=== PATIENT | male | born 1950 | race Caucasian/White ===

== ENCOUNTER 2017-04-27 17:35 | Emergency (ER) | payer MEDICARE ==
[2017-04-27] MEDS ORDERED: NS 0.9% 1000 ML* 1,000 ML IV SCH (18:30)
[2017-04-27 19:31] LABS: Urine Bilirubin Negative (Negative); Urine Glucose Negative (Negative); Urine Nitrite Negative (Negative)
--- NOTE | 2017-04-27 19:51 | RAD ---
Indication: Elevated blood pressure. Respiratory disease. Comparison: December 15, 2016 Technique: Upright AP 1845 hours Report: Elevated lung volumes and both diffuse mild prominence of the interstitial markings and patchy rarefaction of the mid to upper lung zone interstitial markings. The heart, pulmonary vasculature, and mediastinal contours are unremarkable. No focal pulmonary lesion, compelling alveolar consolidation, pleural effusion, pneumothorax. IMPRESSION: Stigmata of obstructive lung disease. No acute pulmonary or cardiac process evident.
[2017-04-27 19:55] LABS: Hematocrit 44 % (42-52); Hemoglobin 15.2 g/dl (14.0-18.0); Mean Corpuscular HGB Conc 35 g/dl (31-36); Mean Corpuscular Hemoglobin 31 pg (27-31); Mean Corpuscular Volume 88 fL (80-94); Mean Platelet Volume 9 um3 (7.4-10.4); Red Blood Count 4.98 10^6/ul (4.0-5.4); Red Cell Distribution Width 14 % (10.5-15); White Blood Count 5.8 10^3/ul (3.5-10.8)
[2017-04-27 20:11] LABS: Albumin 4.2 g/dL (3.2-5.2); BUN/Creatinine Ratio 15.4 (8-20); C Reactive Protein 6.02 mg/L (< 5.00); Calcium 9.5 mg/dL (8.6-10.3); EGFR African American 127.3 (>60); Globulin 2.9 g/dL (2-4); Magnesium 2.1 mg/dL (1.9-2.7); Potassium 3.7 mmol/L (3.5-5.0); Total Bilirubin 0.7 mg/dL (0.2-1.0); Total Protein 7.1 g/dL (6.4-8.9)
[2017-04-27 20:43] LABS: TSH (Thyroid Stimulating Horm) 6.49 mcIU/mL (0.34-5.60)
--- NOTE | 2017-04-27 21:55 | ED ---
Jose Miguel Richardson Benjamin, scribed for Constantino Florez MD on 04/27/17 at 1830 . Hypertension - HPI Summary HPI Summary: 66yo male comes to ED via EMS for high blood pressure. Pt has been monitoring his BP, and his BP has been high lately. Today, pts BP was 151/69 at morning, 166/94 at noon, and 180/109 afternoon. Pt also reports feeling palpitations and neck stiffness. Pt denies CP. His BP meds are not helping with his BP. Pt also states that his face is red. Denies any previous cardiac Hx, but pt has thyroid problems and has been adjusting his thyroid meds dosing. - History of Current Complaint Chief Complaint: EDHypertension Stated Complaint: HIGH BP Time Seen by Provider: 04/27/17 17:59 Hx Obtained From: Patient, Family/Automotive Software Engineer Onset/Duration: Started Days Ago - 5-6 days, Still Present, Worse Since - today Timing: Intermittent Aggravating Factor(s): Nothing Alleviating Factor(s): Nothing Associated Signs & Symptoms: Negative - Allergies/Home Medications Allergies/Adverse Reactions: Allergies Allergy/AdvReac Type Severity Reaction Status Date / Time Penicillins Allergy Unknown Verified 04/27/17 18:03 Reaction Details PMH/Surg Hx/FS Hx/Imm Hx Endocrine/Hematology History: Reports: Hx Thyroid Disease Cardiovascular History: Reports: Hx Hypertension Infectious Disease History: No Infectious Disease History: Denies: Traveled Outside the [place] in Last 30 Days - Family History Known Family History: Positive: Cardiac Disease - Social History Occupation: Retired Lives: With Family Review of Systems Constitutional: Negative Negative: Fever, Chills Eyes: Negative ENT: Negative Positive: Palpitations. Negative: Chest Pain Respiratory: Negative Negative: Shortness Of Breath, Cough Gastrointestinal: Negative Negative: Abdominal Pain Genitourinary: Negative Positive: no symptoms reported Musculoskeletal: Negative Skin: Negative Neurological: Negative Psychological: Normal All Other Systems Reviewed And Are Negative: Yes Physical Exam Triage Information Reviewed: Yes Vital Signs On Initial Exam: Initial Vitals Temp Pulse Resp BP Pulse Ox 99.9 F 77 18 179/101 97 04/27/17 17:49 04/27/17 17:49 04/27/17 17:49 04/27/17 17:49 04/27/17 17:49 Vital Signs Reviewed: Yes Appearance: Positive: No Pain Distress, Well-Nourished. Negative: Well- Appearing - face is flushed Skin: Positive: Warm, Skin Color Reflects Adequate Perfusion, Dry, Other - flushed face Head/Face: Positive: Normal Head/Face Inspection Eyes: Positive: EOMI, KATHY ENT: Positive: Normal ENT inspection, Hearing grossly normal Neck: Positive: Supple, Nontender Respiratory/Lung Sounds: Positive: Clear to Auscultation, Breath Sounds Present Cardiovascular: Positive: RRR, Pulses are Symmetrical in both Upper and Lower Extremities Abdomen Description: Positive: Nontender, Soft Bowel Sounds: Positive: Present Musculoskeletal: Positive: Strength/ROM Intact Neurological: Positive: Sensory/Motor Intact, Alert, Oriented to Person Place, Time Psychiatric: Positive: Affect/Mood Appropriate Diagnostics - Vital Signs Vital Signs Temp Pulse Resp BP Pulse Ox 04/27/17 17:50 75 19 96 04/27/17 17:49 99.9 F 77 18 179/101 97 - Laboratory Lab Results: Lab Results 04/27/17 04/27/17 04/27/17 Range/Units 18:00 19:39 19:39 WBC (3.5-10.8) 10^3/ul RBC (4.0-5.4) 10^6/ul Hgb (14.0-18.0) g/dl Hct (42-52) % MCV (80-94) fL MCH (27-31) pg MCHC (31-36) g/dl RDW (10.5-15) % Plt Count (150-450) 10^3/ul MPV (7.4-10.4) um3 Neut % (Auto) (38-83) % Lymph % (Auto) (25-47) % [place] % (Auto) (1-9) % Eos % (Auto) (0-6) % Baso % (Auto) (0-2) % Absolute Neuts (auto) (1.5-7.7) 10^3/ul Absolute Lymphs (auto) (1.0-4.8) 10^3/ul Absolute Monos (auto) (0-0.8) 10^3/ul Absolute Eos (auto) (0-0.6) 10^3/ul Absolute Basos (auto) (0-0.2) 10^3/ul Absolute Nucleated RBC 10^3/ul Nucleated RBC % INR (Anticoag Therapy) 0.99 (0.89-1.11) APTT 29.3 (26.0-36.3) seconds Sodium (133-145) mmol/L Potassium (3.5-5.0) mmol/L Chloride (101-111) mmol/L Carbon Dioxide (22-32) mmol/L Anion Gap (2-11) mmol/L BUN (6-24) mg/dL Creatinine (0.67-1.17) mg/dL Est GFR ( Amer) (>60) Est GFR (Non-Af Amer) (>60) BUN/Creatinine Ratio (8-20) Glucose (70-100) mg/dL Lactic Acid (0.5-2.0) mmol/L Calcium (8.6-10.3) mg/dL Magnesium (1.9-2.7) mg/dL Total Bilirubin (0.2-1.0) mg/dL AST (13-39) U/L ALT (7-52) U/L Alkaline Phosphatase (34-104) U/L Troponin I (<0.04) ng/mL C-Reactive Protein (< 5.00) mg/L B-Natriuretic Peptide 21 ( - 100) pg/mL Total Protein (6.4-8.9) g/dL Albumin (3.2-5.2) g/dL Globulin (2-4) g/dL Albumin/Globulin Ratio (1-3) Lipase (11.0-82.0) U/L TSH (0.34-5.60) mcIU/mL Urine Color Straw Urine Appearance Clear Urine pH 7.0 (5-9) Ur Specific [place] 1.008 L (1.010-1.030) Urine Protein Negative (Negative) Urine Ketones Negative (Negative) Urine Blood Negative (Negative) Urine Nitrate Negative (Negative) Urine Bilirubin Negative (Negative) Urine Urobilinogen Negative (Negative) Ur Leukocyte Esterase Negative (Negative) Urine Glucose Negative (Negative) 04/27/17 04/27/17 04/27/17 Range/Units 19:39 19:39 19:39 WBC 5.8 (3.5-10.8) 10^3/ul RBC 4.98 (4.0-5.4) 10^6/ul Hgb 15.2 (14.0-18.0) g/dl Hct 44 (42-52) % MCV 88 (80-94) fL MCH 31 (27-31) pg MCHC 35 (31-36) g/dl RDW 14 (10.5-15) % Plt Count 155 (150-450) 10^3/ul MPV 9 (7.4-10.4) um3 Neut % (Auto) 77.3 (38-83) % Lymph % (Auto) 12.2 L (25-47) % [place] % (Auto) 6.9 (1-9) % Eos % (Auto) 2.4 (0-6) % Baso % (Auto) 1.2 (0-2) % Absolute Neuts (auto) 4.5 (1.5-7.7) 10^3/ul Absolute Lymphs (auto) 0.7 L (1.0-4.8) 10^3/ul Absolute Monos (auto) 0.4 (0-0.8) 10^3/ul Absolute Eos (auto) 0.1 (0-0.6) 10^3/ul Absolute Basos (auto) 0.1 (0-0.2) 10^3/ul Absolute Nucleated RBC 0 10^3/ul Nucleated RBC % 0 INR (Anticoag Therapy) (0.89-1.11) APTT (26.0-36.3) seconds Sodium 137 (133-145) mmol/L Potassium 3.7 (3.5-5.0) mmol/L Chloride 102 (101-111) mmol/L Carbon Dioxide 28 (22-32) mmol/L Anion Gap 7 (2-11) mmol/L BUN 12 (6-24) mg/dL Creatinine 0.78 (0.67-1.17) mg/dL Est GFR ( Amer) 127.3 (>60) Est GFR (Non-Af Amer) 99.0 (>60) BUN/Creatinine Ratio 15.4 (8-20) Glucose 104 H (70-100) mg/dL Lactic Acid 0.7 (0.5-2.0) mmol/L Calcium 9.5 (8.6-10.3) mg/dL Magnesium 2.1 (1.9-2.7) mg/dL Total Bilirubin 0.70 (0.2-1.0) mg/dL AST 19 (13-39) U/L ALT 11 (7-52) U/L Alkaline Phosphatase 47 (34-104) U/L Troponin I 0.00 (<0.04) ng/mL C-Reactive Protein 6.02 H (< 5.00) mg/L B-Natriuretic Peptide ( - 100) pg/mL Total Protein 7.1 (6.4-8.9) g/dL Albumin 4.2 (3.2-5.2) g/dL Globulin 2.9 (2-4) g/dL Albumin/Globulin Ratio 1.4 (1-3) Lipase 46 (11.0-82.0) U/L TSH 6.49 H (0.34-5.60) mcIU/mL Urine Color Urine Appearance Urine pH (5-9) Ur Specific [place] (1.010-1.030) Urine Protein (Negative) Urine Ketones (Negative) Urine Blood (Negative) Urine Nitrate (Negative) Urine Bilirubin (Negative) Urine Urobilinogen (Negative) Ur Leukocyte Esterase (Negative) Urine Glucose (Negative) Result Diagrams: 04/27/17 19:39 04/27/17 19:39 Lab Statement: Any lab studies that have been ordered have been reviewed, and results considered in the medical decision making process. - Radiology CXR Xray Interpretation: No Acute Changes - IMPRESSION: Stigmata of obstructive lung disease. No acute pulmonary or cardiac process evident. Radiology Interpretation Completed By: Radiologist - EKG 5550. Cardiac Rate: NL - 74bpm EKG Rhythm: Sinus Rhythm ST Segment: Normal Ectopy: None Re-Evaluation - Re-Evaluation First Eval Re-Evaluation Time: 20:51 Comment: Reviewed pts lab and imaging results with the pt. Hypertension Course/Dx - Course Course Of Treatment: Reviewed pts medication and allergy lists. High blood pressure noted. PATIENT'S BP VARIABLE IN ED. THE PLAN IS TO CONTINUE BP MEDS DIRECTED AND F/U WITH PMD AND ENDOCRINOLOGY TOMORROW; RETURN IF WORSE WITH SYMPTOMATIC HYPERTENSION OR ANY CONCERNS. - Diagnoses Provider Diagnoses: Hypertension, Thyroid condition Discharge - Discharge Plan Condition: Stable Disposition: HOME Patient Education Materials: Hypertension (ED) Referrals: Michael Bates MD [Primary Care Provider] - Kian Arredondo MD [Medical Doctor] - Additional Instructions: FOLLOW UP WITH YOUR DOCTOR. CALL BOTH DR BATES AND DR ARREDONDO TOMORROW FOR FOLLOW UP. RETURN TO THE EMERGENCY DEPARTMENT FOR ANY WORSENING OF YOUR CONDITION; CHEST PAIN, HEADACHE, ELEVATED BLOOD PRESSURE WITH ANY SYMPTOMS OR QUESTIONS OR CONCERNS. The documentation as recorded by the Jose Miguel paredes Benjamin accurately reflects the service I personally performed and the decisions made by me, Constantino Florez MD.
[2017-04-27 22:20] VITALS: BP 147/87
== END 2017-04-27 22:35 | disposition home or self-care (01) ==
LOC: ED 17:35
DX: I10 Essential (primary) hypertension (principal); E07.9 Disorder of thyroid, unspecified; R00.2 Palpitations
CPT/HCPCS: 36415; 71010; 80053; 81003; 83605; 83690; 83735; 83880; 84443; 84484; 85025; 85610; 85730; 86140; 93005; 99284

== ENCOUNTER 2017-08-06 09:00 | Emergency (ER) | payer MEDICARE ==
--- NOTE | 2017-08-06 09:56 | RAD ---
INDICATION: Hemoptysis COMPARISON: April 27, 2017 TECHNIQUE: PA and lateral dual-energy views were obtained. FINDINGS: Bones/Soft Tissues: There are no acute bony findings. Cardiomediastinal: The cardiomediastinal silhouette is normal. Lungs: There are no infiltrates. There is hyperinflation Pleura: There are no pleural effusions. Other: None IMPRESSION: HYPERINFLATION. NO ACTIVE DISEASE.
--- NOTE | 2017-08-06 09:58 | RAD ---
INDICATION: Tongue carcinoma COMPARISON: None TECHNIQUE: 2 views the neck with soft tissue technique were performed FINDINGS: There is no acute bony change. There is underlying osteopenia with desiccation of the anterior longitudinal ligament in addition to anterior bony spur formation. There is multilevel facet arthropathy. There are soft tissue calcifications adjacent to the spinous processes. There are postsurgical changes at the level larynx with multiple surgical clips. The airway appears widely patent. The prevertebral soft tissues and epiglottis appear normal. IMPRESSION: DEGENERATIVE AND POSTSURGICAL CHANGES. NO ACUTE FINDINGS.
--- NOTE | 2017-08-06 10:40 | UC ---
Constanza Richardson Thomas, scribed for [facility] Center[facility]dom[facility] MD on 08/06/17 at 0907 . Respiratory Complaint HPI - HPI Summary HPI Summary: In Room Note: The patient is a 66 year old male presenting to Urgent Care and intermittent spitting up blood since this morning at 05:00. The patient often has white- yellow phlegm in the morning, but he never has had bloody phlegm before today. He does have some increased difficulty swallowing compared to baseline. He has no other complaints at this time. 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 About ten years ago, he had 40 radiation treatments. The patient denies any difficulty breathing. MD Note: 66 year old male with complaint of coughing up blood. Visit history significant for prostate cancer, thyroidectomy, and hypertension (on anti-hypertensive medications), as well as Synthroid. VSS, temp 99.4, Pulse Ox 96, BP 181/86 ( being treated for hypertension), non-smoker. Nurses Note: 10 years ago the patient had a radical neck for squamous cell carcinoma at the base of his tongue. He also had radiation and chemo. [place]. The patient states that he normally has some phlegm in his throat in the mornings when he wakes up. The phlegm is usually white to yellow and is more thin. This morning there was blood in the mucous. He is here because he is nervous about the blood. He says it was just a little bit of blood and the blood has cleared up since he first noticed it. He also has a history of thyroid cancer 14 years ago. He currently has prostate cancer as well. His last check up with his doctor who monitors him for the head/neck cancer said that he has a lot of scar tissue in the neck and the scar tissue is getting worse. He does have some difficulty swallowing and the doctor is aware of that. - History of Current Complaint Stated Complaint: SOFT TISSUE Time Seen by Provider: 08/06/17 09:02 Hx Obtained From: Patient, Family/Geriatric Nurse - present Onset/Duration: Lasting Hours - onset today at 05:00, Still Present Timing: Intermittent Episodes Severity Currently: Severe Pain Intensity: 0 Pain Scale Used: 0-10 Numeric Character: Cough: Productive, Sputum Description: - bloody Aggravating Factors: Nothing Alleviating Factors: Nothing - Allergies/Home Medications Allergies/Adverse Reactions: Allergies Allergy/AdvReac Type Severity Reaction Status Date / Time Penicillins Allergy Unknown Verified 08/06/17 09:17 Reaction Details Home Medications: Home Medications Aspirin Low Dose CHEW TAB* [Aspirin Low Dose TAB*] 81 mg PO DAILY 08/06/17 [ History Confirmed 08/06/17] Levothyroxine TAB* [Synthroid TAB*] 200 mcg PO DAILY 08/06/17 [History Confirmed 08/06/17] Losartan TAB* [Cozaar TAB*] 100 mg PO DAILY 08/06/17 [History Confirmed 08/06/17 ] amLODIPine TAB* [Norvasc 5 mg TAB*] 5 mg PO DAILY 08/06/17 [History Confirmed ] PMH/Surg Hx/FS Hx/Imm Hx Previously Healthy: No - HTN, hypothyroidism Other Cancer History: Squamous cell carcinoma of tongue, prostate cancer - Family History Known Family History: Positive: Cardiac Disease - Social History Occupation: Retired Lives: With Family Alcohol Use: Occasionally Substance Use Type: None Smoking Status (MU): Never Smoked Tobacco Review of Systems ENT: Other - Increased difficulty swallowing Respiratory: Other - Cough, spitting up blood Is Patient Immunocompromised?: No All Other Systems Reviewed And Are Negative: Yes - Comments Additional Review of Systems Comments: A 12 point review of systems was completed and significantly positive for: increased difficulty swallowing, cough, and spitting up blood. The remainder of the review was negative except as stated above in the HPI. Physical Exam Triage Information Reviewed: Yes Vital Signs: Initial Vital Signs Temp 99.4 F 08/06/17 09:07 Pulse 88 08/06/17 09:07 Resp 14 08/06/17 09:07 BP 181/86 08/06/17 09:07 Pulse Ox 96 08/06/17 09:07 Vital Signs Reviewed: Yes - Additional Comments Appearance: The patient is well-appearing, is in no pain distress, and is well- nourished. Eyes: Conjunctiva are clear. ENT: The hearing is grossly normal, the pharynx is normal, and the TMs are normal. There is no epistaxis. Neck: The neck is supple and there is no anterior or posterior lymphadenopathy. There are some petechiae on the soft tissue of the posterior pharynx. The pharynx is painted. There is no pain in the posterior pharynx. The throat appears open. Respiratory: The chest is nontender. The lungs are clear, there are normal breath sounds, and there is no respiratory distress. Cardiovascular: Heart is regular rate and rhythm. There is no murmur. Abdomen: The abdomen is soft and nontender. There is no organomegaly. Bowel sounds are present. Bowel sounds: present Musculoskeletal: Strength is intact. The patient moves all extremities. Neurological: The patient is alert. Psychological: The patient displays age appropriate behavior Skin: Negative for rashes. UC Diagnostic Evaluation - Laboratory Diagnostic Studies Comment: CXR. Interpreted by radiologist. Impression: "Hyperinflation. No active disease." Dr. Soto has reviewed this report. ...................... Soft Tissue Neck XR. Interpreted by radiologist. Impression: "DEGENERATIVE AND POSTSURGICAL CHANGES. NO ACUTE FINDINGS." Dr. Soto has reviewed this report. Respiratory Course/Dx - Course Course Of Treatment: This patient showed me cloth towel with a small amount of nonclotted blood. His vital signs and his physical exam were unremarkable with the exception of a few apparent petechiae on the soft palate. His chest x-ray and soft tissue neck x-ray were unremarkable. In examining the patient again at 10:30AM, he was comfortable and not coughing or bleeding. I discussed with the patient and his at length and the option of going to the emergency department. Instead of going now to the ED, the patient will instead watch closely and ensure that his condition does not worsen. He will go to the emergency department if it worsens. The patient will see Dr. Weaver, who the patient has seen in the past, in the next week. The patients main ENT physician is in [place], [place]. The patient and his understand that this symptom could possibly not bother him again or it could get worse and the patient should take an ambulance to the ED if there is significant amount of bleeding. Elevated BP but has current hypertension diagnosis and treatment. Medications have been included in the original chart and reviewed. - Differential Dx/Diagnosis Differential Diagnosis/HQI/PQRI: Other - Hemoptysis, URI, vessel disruption Provider Diagnoses: Hemoptysis, possible vessel disruption at site of previous site of neck surgery for cancer of the tongue Discharge - Discharge Plan Condition: Stable Disposition: HOME Patient Education Materials: Hemoptysis (ED) Referrals: Eduardo Felix MD [Medical Doctor] - As Soon As Possible Lito Lugo MD [Medical Doctor] - As Soon As Possible Addy Weaver MD [Medical Doctor] - As Soon As Possible Michael Bates MD [Primary Care Provider] - If Needed Additional Instructions: Thank you for helping us improve patient care by filling out the [employer] Survey. WE DISCUSSED: 1. Your have coughed up a little amount of blood. This needs to be watched closely. GO TO ED IF CONDITIONS RESUMES AND GETS WORSE. 2. Call Dr. Weaver and your primary ENT on Tuesday. 3. Warm fluids such as tea and honey to keep area heated and help clear area of phlegm. 4. Call us with any questions or concerns. PLEASE SEEK CARE AT THE EMERGENCY DEPARTMENT IF SYMPTOMS WORSEN OR IF NEW SYMPTOMS DEVELOP. FOLLOW UP WITH YOUR PRIMARY CARE PHYSICIAN IF CONDITION CONTINUES BEYOND 3 DAYS. Your blood pressure reading today was 181/86, indicating HYPERTENSION. Follow- up with your primary care provider within 4 weeks for blood pressure readings and further evaluation. The documentation as recorded by the Constanza paredes Thomas accurately reflects the service I personally performed and the decisions made by me, Baldomero Soto MD.
[2017-08-06 10:54] VITALS: BP 175/99
== END 2017-08-06 10:50 | disposition home or self-care (01) ==
LOC: UCEAST 09:00
DX: R04.2 Hemoptysis (principal); Z85.810 Personal history of malignant neoplasm of tongue; Z92.3 Personal history of irradiation; Z79.82 Long term (current) use of aspirin; Z88.0 Allergy status to penicillin
CPT/HCPCS: 70360; 71020; 99212; G0463

== ENCOUNTER 2017-08-13 09:35 | Emergency (ER) | payer MEDICARE ==
[2017-08-13 12:15] VITALS: BP 175/90
--- NOTE | 2017-08-13 12:23 | UC ---
Respiratory Complaint HPI - HPI Summary HPI Summary: Patient presents with a past medical history of throat cancer, and states he was need here one week ago with complaints of hemoptysis. He states he had a chest and neck xray both of which he reports were negative. He was then referred on to Dr. Weaver who looked in his throat and told that was o.k, and then he had a CT of his chest and he has not been told of those results. He presents today with complaints of brown sputum, and he also notes that he has been experiencing chills and at night sweats. He denies any chest pain, dyspnea , abdominal pain, nausea, vomiting or diarrhea. - History of Current Complaint Chief Complaint: UCGeneralIllness Stated Complaint: COUGH CONGESTION Time Seen by Provider: 08/13/17 11:55 Hx Obtained From: Patient Onset/Duration: Gradual Onset, Lasting Days Timing: Constant Character: Cough: Productive Aggravating Factors: Nothing Alleviating Factors: Spontaneous Resolution Associated Signs And Symptoms: Positive: URI, Nasal Congestion - Risk Factors Pulmonary Embolism Risk Factors: Negative Cardiac Risk Factors: Negative Pseudomonas Risk Factors: Negative Tuberculosis Risk Factors: Negative - Allergies/Home Medications Allergies/Adverse Reactions: Allergies Allergy/AdvReac Type Severity Reaction Status Date / Time Penicillins Allergy Unknown Verified 08/13/17 10:09 Reaction Details PMH/Surg Hx/FS Hx/Imm Hx Previously Healthy: No - h/o thorat cancer - Surgical History Surgical History: Yes Surgery Procedure, Year, and Place: thyroidectomy. radical neck. inguinal hgernia repair - Family History Known Family History: Positive: Cardiac Disease - Social History Occupation: Retired Lives: Alone Alcohol Use: None Substance Use Type: None Smoking Status (MU): Never Smoked Tobacco Have You Smoked in the Last Year: No - Immunization History Most Recent Influenza Vaccination: UTD Review of Systems Constitutional: Chills Skin: Negative Eyes: Negative ENT: Negative, Nasal Discharge Respiratory: Cough Cardiovascular: Negative Gastrointestinal: Negative Genitourinary: Negative Motor: Negative Neurovascular: Negative Is Patient Immunocompromised?: No All Other Systems Reviewed And Are Negative: Yes Physical Exam Triage Information Reviewed: Yes Appearance: Well-Appearing Vital Signs: Initial Vital Signs Temp 98.2 F 08/13/17 10:05 Pulse 80 08/13/17 10:05 Resp 18 08/13/17 10:05 BP 147/87 08/13/17 10:05 Pulse Ox 95 08/13/17 10:05 Vital Signs Reviewed: Yes Eye Exam: Normal ENT Exam: Normal Neck exam: Normal Neck: Positive: 1 Respiratory: Positive: Decreased breath sounds Cardiovascular Exam: Normal Psychological Exam: Normal Skin Exam: Normal UC Diagnostic Evaluation - Laboratory O2 Sat by Pulse Oximetry: 93 Respiratory Course/Dx - Course Course Of Treatment: Patient presents with a past medical history of throat cancer, s/p radiation therapy and currently is managed and monitored by Dr. Weaver who ordered at CT chest which I located and gave a copy of the report to the patient who understands that he will need a repeat CT of chest in 1-3 months to check on the stability vs resolution of the pulmonary noduels that could be reactve in reposnce to the pneumonia, I have also told him to contact Dr. Weaver right after Noel to review all of the report as he ordered it. In the meantime I will treat him for CAP, with Azithromycin. I appreciate that his BP was elevated while in the clinic, as he does have a history of HTN, and today was elevated most likely in repsonce to the urgent/ emergenct medical condition and I do not feel there was any reason to adjsut his medication in responce to one elelvation. He also had O2 saturation of 93- 95 percent on RA again in repsonce to the CAP. He was speaking in full sentences , and in no obvious repiratort distress therefore discharge home to follow up with his PCP. The discharge plan was discussed with the patient and he verbilzied understanding and was in agreement. - Differential Dx/Diagnosis Differential Diagnosis/HQI/PQRI: Other - CAP Provider Diagnoses: CAP Discharge - Discharge Plan Condition: Stable Disposition: HOME Prescriptions: Azithromycin 100 MG/5 ML SUSP* [Zithromax SUSP* 100 MG/5 ML] 0 mg PO DAILY #100 ml Patient Education Materials: Pneumonia (ED) Referrals: Michael Bates MD [Primary Care Provider] - Additional Instructions: You will need to have a repeat CT chest in1-3 months to check the resolution or stability of the pulmonary nodules. .
== END 2017-08-13 12:19 | disposition home or self-care (01) ==
LOC: UCEAST 09:35
DX: J18.9 Pneumonia, unspecified organism (principal); I10 Essential (primary) hypertension; Z85.818 Personal history of malignant neoplasm of other sites of lip, oral cavity, and pharynx; Z88.0 Allergy status to penicillin; Z92.3 Personal history of irradiation
CPT/HCPCS: 99212; G0463

== ENCOUNTER 2017-12-24 19:03 | Emergency (ER) | payer MEDICARE ==
[2017-12-24 19:21] VITALS: BP 198/105
--- NOTE | 2017-12-24 19:47 | UC ---
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 Onset/Duration: Sudden Onset, Lasting Hours, Still Present Timing: Constant Severity Initially: Moderate Severity Currently: Moderate Pain Intensity: 0 Character: Cough: Nonproductive Aggravating Factors: Allergens Associated Signs And Symptoms: Positive: Negative Related History: Seasonal Allergies - Allergies/Home Medications Allergies/Adverse Reactions: Allergies Allergy/AdvReac Type Severity Reaction Status Date / Time MS Penicillins [Penicillins] Allergy Unknown Verified 08/13/17 10:09 Reaction Details Home Medications: Home Medications Allergy Shots 1 inj IM WEEKLY 12/24/17 [History Confirmed 12/24/17] PMH/Surg Hx/FS Hx/Imm Hx Previously Healthy: Yes Other Cancer History: Base of tongue - Surgical History Surgical History: Yes Surgery Procedure, Year, and Place: thyroidectomy. radical neck. inguinal hgernia repair - Family History Known Family History: Positive: Cardiac Disease - Social History Alcohol Use: None Substance Use Type: None Smoking Status (MU): Never Smoked Tobacco Have You Smoked in the Last Year: No - Immunization History Most Recent Influenza Vaccination: UTD Review of Systems Constitutional: Negative Skin: Negative Eyes: Negative ENT: Negative Respiratory: Cough Cardiovascular: Negative Gastrointestinal: Negative Genitourinary: Negative Motor: Negative Neurovascular: Negative Musculoskeletal: Negative Neurological: Negative Psychological: Negative All Other Systems Reviewed And Are Negative: Yes Physical Exam Triage Information Reviewed: Yes Appearance: No Pain Distress Vital Signs: Initial Vital Signs Temp 37.1 C 12/24/17 19:15 Pulse 68 12/24/17 19:15 Resp 16 12/24/17 19:15 BP 198/105 12/24/17 19:15 Pulse Ox 93 12/24/17 19:15 Vital Signs Reviewed: Yes Eye Exam: Normal ENT Exam: Normal Dental Exam: Normal Neck: Positive: Other: - severe neck skin restrction s/p radiation, scarred skin Respiratory: Positive: Lungs clear, Normal breath sounds, No respiratory distress, No accessory muscle use. Negative: Respiratory distress, Decreased breath sounds, Crackles, Rhonchi, Stridor, Wheezing Cardiovascular Exam: Normal Abdominal Exam: Normal Musculoskeletal Exam: Normal Neurological Exam: Normal Psychological Exam: Normal Skin Exam: Normal UC Diagnostic Evaluation - Laboratory O2 Sat by Pulse Oximetry: 93 Respiratory Course/Dx - Course Course Of Treatment: pt has h/o base of tongue ca with extensive radiation to neck- limited in choice of medication as pt has chronic dry tongue, dysphagia as a S/E of neck radiation(cannot swallow pills) and antihistimines will try him out even more. My impression is a URI w/o clinical impression of PNA at this time and do not see a need for medical intervention given pt's history - Differential Dx/Diagnosis Provider Diagnoses: URi. nasal congestion. seasonal allergies Discharge - Sign-Out/Discharge Documenting (check all that apply): Discharge/Admit/Transfer - Discharge Plan Condition: Stable Disposition: HOME Patient Education Materials: Upper Respiratory Infection (ED), Allergies (ED) Referrals: Michael [place] MD [Primary Care Provider] - Additional Instructions: Follow up with cryptologic supervisor - Billing Disposition and Condition Condition: STABLE Disposition: HOME
== END 2017-12-24 19:46 | disposition home or self-care (01) ==
LOC: UCEAST 19:03
DX: J06.9 Acute upper respiratory infection, unspecified (principal); R09.81 Nasal congestion; J30.2 Other seasonal allergic rhinitis; Z85.810 Personal history of malignant neoplasm of tongue; Z88.0 Allergy status to penicillin
CPT/HCPCS: 99211; G0463

== ENCOUNTER 2019-09-26 18:19 | Inpatient (IN) | payer MEDICARE ==
--- OUTSIDE RECORDS SUMMARY | 2019-09-26 18:53 | XMS REPORT | Continuity of Care Document ---
:1950 External Reference #:[id number] Author Name Ladonna Aly M.D. 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 Onset: 04/25/2015 Hypothyroidism Renato Edouard M.D. Onset: 04/25/2015 History of malignant neoplasm of thyroid Renato Edouard M.D. Onset: 2014 Tongue carcinoma Michael [place] M.D. Onset: 12/15/2016 Note: Poorly differentiated squamous, cell cancer Malignant tumor of prostate Michael Bates M.D. Onset: 12/15/2016 Social History Type Date Description Comments Sex Unknown ETOH Use Negative For Denies alcohol use Tobacco Use Start: Unknown Patient has never smoked Recreational Drug Use Denies Drug Use Smoking Status Reviewed: 09/17/19 Patient has never smoked Exercise Type/Frequency Walks daily Allergies, Adverse Reactions, Alerts Active Allergies Reaction Severity Comments Date Penicillin 04/25/2015 Hydrochlorothiazide dizzy and flushed 10/10/2018 Medications Active Medications SIG Qnty Indications Ordering Provider Date Amlodipine Besylate take 1 tablet by 90tabs Ladonna Aly, 10/02/2018 10mg mouth once daily M.D. Tablets Losartan Potassium take 1 tablet by 90tabs I10 Ladonna Aly, 2016 100mg mouth once daily M.D. Tablets Aspir-Low 1 by mouth every Unknown 81mg Tablets DR day Centrum Silver 1 by mouth every Unknown Tablets day Allergy Injections once monthly in Unknown the winter season, q2wks in summer season Levothyroxine Sodium 1 tab daily Unknown 200mcg Solution Rec Levothyroxine Sodium 1 by mouth every LawKian MD day 25mcg Tablets Immunizations CPT Code Status Date Vaccine Lot # [id number] Given 05/26/2015 Fluzone Vaccine 74961 Given 11/26/2014 Pneumococcal Conjugate Vaccine 13 Valent For Intramuscular Use Q2038 Given 05/17/2014 Fluzone Vaccine 30280 Given 11/30/2013 Pneumonia Vaccine 66459 Given 07/16/2013 Zoster (Zostavax) 32296 Given 06/08/2013 Influenza Virus 3Yrs & Over 45123 Given 09/28/2012 Tdap - Tetanus/Diptheria/Acellular Pertussis 57424 Given 04/13/2012 Influenza Virus 3Yrs & Over 68119 Given 05/03/2011 Influenza Virus 3Yrs & Over 52043 Given 05/27/2009 Influenza Virus 3Yrs & Over 57130 Given 06/10/2008 Pneumonia Vaccine 32857 Given 11/21/2006 Tetanus And Diptheria (Td) For Adult Use Preservative Free 18921 Given 05/19/2000 Influenza Virus 3Yrs & Over Vital Signs Date Vital Result Comment 09/17/2019 10:19am Height 70 inches 5'10" Weight 156.00 lb Heart Rate 85 /min BP Systolic 169 mmHg BP Diastolic 79 mmHg BP Systolic Sitting 165 mmHg recheck BP Diastolic Sitting 79 mmHg recheck O2 % BldC Oximetry 91 % BMI (Body Mass Index) 22.4 kg/m2 08/06/2019 1:17pm Height 70 inches 5'10" Weight 157.00 lb Heart Rate 62 /min BP Systolic 179 mmHg BP Diastolic 85 mmHg BP Systolic Sitting 176 mmHg recheck BP Diastolic Sitting 81 mmHg recheck O2 % BldC Oximetry 96 % BMI (Body Mass Index) 22.5 kg/m2 Results Test Acquired Date Facility Test Result H/L Range Note Lipid Profile 07/30/2019 [facility] Triglycerides 60 mg/dL 1 (Trig/Chol/HDL) [address] [place] [address] [phone] Cholesterol 128 mg/dL 2 HDL Cholesterol 51.0 mg/dL 3 LDL Cholesterol 65 mg/dL 4 Comp Metabolic 07/30/2019 [facility] Sodium 139 mmol/L Normal 135-[address] [place] [address] [phone] Potassium 4.3 mmol/L Normal 3.5-5.0 Chloride 100 mmol/L Low 101-111 Co2 Carbon Dioxide 33 mmol/L High 22-32 Anion Gap 6 mmol/L Normal 2-11 Glucose 92 mg/dL Normal 70-100 Blood Urea Nitrogen 15 mg/dL Normal 6-24 Creatinine 0.85 mg/dL Normal 0.67-1.17 BUN/Creatinine Ratio 17.6 Normal 8-20 Calcium 9.6 mg/dL Normal 8.6-10.3 Total Protein 7.4 g/dL Normal 6.4-8.9 Albumin 4.0 g/dL Normal 3.2-5.2 Globulin 3.4 g/dL Normal 2-4 Albumin/Globulin Ratio 1.2 Normal 1-3 Total Bilirubin 0.60 mg/dL Normal 0.2-1.0 Alkaline Phosphatase 71 U/L Normal 34-104 Alt 12 U/L Normal 7-52 Ast 20 U/L Normal 13-39 Egfr Non- 89.1 >60 Egfr 107.8 >60 5 Laboratory test 07/24/2019 [facility] TSH (Thyroid 5.68 High 0.34-5.[address] Stim Horm) mcIU/[place] [address] [phone] Thyroglobulin 07/24/2019 [facility] Thyroglobulin <1.8 <4.0 [address] Antibody IU/[place] [address] [phone] Thyroglobulin Tumor Marker <0.1 ng/mL 6 Thyroglobulin Interpretation See Comment 7 Laboratory 03/21/2019 [facility] TSH (Thyroid 4.38 Normal 0.34 -5.[address] Stim Horm) mcIU/[place] [address] [phone] Free T4 (Free Thyroxine) 1.29 ng/dL High 0.61-1.12 T3 Total 91 ng/dL Normal 87-178 1 Desirable: <150 Borderline High: 150-199 High: 200-499 Very High: >500 2 Desirable: <200 Borderline High: 200-239 High: >239 3 Low: <40 Desirable: 40-60 High: >60 4 Desirable: <100 Near Optimal: 100-129 Borderline High: 130-159 High: 160-189 Very High: >189 5 Because ethnic data is not always readily available, this report includes an eGFR for both -Americans and non- Americans. The National Kidney Disease Education Program (NKDEP) does not endorse the use of the MDRD equation for patients that are not between the ages of 18 and 70, are , have extremes of body size, muscle mass, or nutritional status, or are non- or non-. According to the National Kidney Foundation, irrespective of diagnosis, the stage of the disease is based on the level of kidney function: Stage Description GFR(mL/min/1.73 m(2)) 1 Kidney damage with normal or decreased GFR 90 2 Kidney damage with mild decrease in GFR 60-89 3 Moderate decrease in GFR 30-59 4 Severe decrease in GFR 15-29 5 Kidney failure <15 (or dialysis) 6 REFERENCE VALUE Athyrotic <0.1 Intact Thyroid <=33 7 Thyroglobulin (Tg) levels must be interpreted in the context of TSH levels, serial Tg measurements and radioiodine ablation status. Tg levels <0.1 ng/mL in athyrotic individuals on suppressive therapy indicate a minimal risk (<1-2%) of clinically detectable recurrent papillary/follicular thyroid cancer. ADDITIONAL INFORMATION PLEASE NOTE: Thyroglobulin flagging is based on athyrotic reference values. The thyroglobulin and thyroglobulin antibody testing methods are immunoenzymatic assays manufactured by [employer] and performed on the [employer] DXI 800. Values obtained from different assay methods or kits may be different and cannot be used interchangeably. The results cannot be interpreted as absolute evidence for the presence or absence of malignant disease. Test Performed by: [facility] [id number] [place] [address] Continuous Process Rotary Drum Tanner: Constantino Rodriguez M.D. Ph.D.; CLIA# [id number] Procedures Date Code Description Status 07/17/2019 991072455 Diabetic Retinal Eye Exam Completed 06/04/2019 00730 repair intermediate,scalp,axillae,trunk and/or Completed extremities 06/04/2019 80108 Excise Malig Lesion 1.1-2CM Trunk/Arm/Leg Completed 04/27/2019 61345 Destruction Of Lesions 15+ Completed 04/27/2019 91523 Tangential Biopsy Of Skin, Single Lesion Completed 04/10/2019 [id number] Diabetic Retinal Eye Exam Completed 10/10/2018 [id number] Diabetic Retinal Eye Exam Completed 08/08/2018 992460175 Diabetic Retinal Eye Exam Completed 02/18/2014 00018486 Colonoscopy Completed Medical Devices Description No Information Available Encounters Type Date Location Provider Dx Diagnosis Office Visit 04/27/2019 [facility] Roman German MD L82.1 Other seborrheic 8:30a keratosis L57.0 Actinic keratosis L98.9 Disorder of the skin and subcutaneous tissue, unspecified Assessments Date Code Description Provider 09/17/2019 I10 Essential (primary) hypertension Ladonna Aly M.D. 08/06/2019 Z00.00 Encounter for general adult medical Ladonna Aly M.D. examination without abnormal findings 08/06/2019 I10 Essential (primary) hypertension Ladonna Aly M.D. 08/06/2019 I65.23 Occlusion and stenosis of bilateral carotid Ladonna Aly M.D. arteries 06/11/2019 Z48.02 Encounter for removal of sutures Roman German MD 06/04/2019 C44.612 Basal cell carcinoma of skin of right upper Roman German MD limb, including shoulder 04/27/2019 L82.1 Other seborrheic keratosis Roman [place] MD 04/27/2019 L57.0 Actinic keratosis Roman [place] MD 04/27/2019 L98.9 Disorder of the skin and subcutaneous Roman German MD tissue, unspecified Plan of Treatment Future Appointment(s):03/17/2020 9:00 am - Ladonna Aly M.D. at [facility] - Ccmob10/25/2019 10:00 am - Roman [place] MD at [facility] Xyxeqcyutkm01/27/2020 - Ladonna Aly M.D.I10 Essential (primary) hypertensionComments:Continue the same medicationFollow up:6 months for BP Functional Status Description No Information Available Mental Status Description No Information Available Referrals Description No Information Available
--- OUTSIDE RECORDS SUMMARY | 2019-09-26 18:53 | XMS REPORT | Continuity of Care Document ---
:1950 External Reference #:[id number] Author Name Ladonna Aly M.D. 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 Onset: 04/25/2015 Hypothyroidism Renato Edouard M.D. Onset: 04/25/2015 History of malignant neoplasm of thyroid Renato Edouard M.D. Onset: 2014 Tongue carcinoma Michael [place] M.D. Onset: 12/15/2016 Note: Poorly differentiated squamous, cell cancer Malignant tumor of prostate Michael [place] M.D. Onset: 12/15/2016 Abnormal weight loss Michael [place] M.D. Onset: 12/15/2016 Secondary hypertension Michael [place] M.D. Onset: 07/03/2018 Social History Type Date Description Comments Sex Unknown ETOH Use Negative For Denies alcohol use Tobacco Use Start: Unknown Patient has never smoked Recreational Drug Use Denies Drug Use Smoking Status Reviewed: 08/06/19 Patient has never smoked Exercise Type/Frequency Walks daily Allergies, Adverse Reactions, Alerts Active Allergies Reaction Severity Comments Date Penicillin 04/25/2015 Hydrochlorothiazide dizzy and flushed 10/10/2018 Medications Active Medications SIG Qnty Indications Ordering Provider Date Amlodipine Besylate take 1 tablet by 30tabs aLdonna Aly, 10/02/2018 10mg mouth once daily M.D. [...] Rec Levothyroxine Sodium 1 by mouth every Kian Hawk MD day 25mcg Tablets Immunizations CPT Code Status Date Vaccine Lot # [id number] Given 05/26/2015 Fluzone Vaccine 85906 Given 11/26/2014 Pneumococcal Conjugate Vaccine 13 Valent For Intramuscular Use Q2038 Given 05/17/2014 Fluzone Vaccine 90912 Given 11/30/2013 Pneumonia Vaccine 23370 Given 07/16/2013 Zoster (Zostavax) 84132 Given 06/08/2013 Influenza Virus 3Yrs & Over 73280 Given 09/28/2012 Tdap - Tetanus/Diptheria/Acellular Pertussis 01820 Given 04/13/2012 Influenza Virus 3Yrs & Over 11314 Given 05/03/2011 Influenza Virus 3Yrs & Over 62809 Given 05/27/2009 Influenza Virus 3Yrs & Over 52389 Given 06/10/2008 Pneumonia Vaccine 32994 Given 11/21/2006 Tetanus And Diptheria (Td) For Adult Use Preservative Free 58659 Given 05/19/2000 Influenza Virus 3Yrs & Over Vital Signs Date Vital Result Comment 08/06/2019 1:17pm Height 70 inches 5'10" Weight 157.00 lb Heart Rate 62 /min BP Systolic 179 mmHg BP Diastolic 85 mmHg BP Systolic Sitting 176 mmHg recheck BP Diastolic Sitting 81 mmHg recheck O2 % BldC Oximetry 96 % BMI (Body Mass Index) 22.5 kg/m2 01/29/2019 10:22am Height 70 inches 5'10" Weight 162.00 lb Heart Rate 58 /min BP Systolic Sitting 166 mmHg BP Diastolic Sitting 78 mmHg O2 % BldC Oximetry 97 % BMI (Body Mass Index) 23.2 kg/m2 Results Test Acquired Date Facility Test Result H/L Range Note Lipid Profile 07/30/2019 [facility] Triglycerides 60 mg/dL 1 (Trig/Chol/HDL) [address] [place] [address] [phone] Cholesterol 128 mg/dL 2 HDL Cholesterol 51.0 mg/dL 3 LDL Cholesterol 65 mg/dL 4 Comp Metabolic 07/30/2019 [facility] Sodium 139 mmol/L Normal 135-[address] [place] [address] [phone] Potassium 4.3 mmol/L Normal 3.5-5.0 Chloride 100 [...] Egfr 107.8 >60 5 Laboratory test 07/24/2019 [facility] TSH (Thyroid 5.68 High 0.34-5.[address] Stim Horm) mcIU/[place] [address] [phone] Thyroglobulin 07/24/2019 [facility] Thyroglobulin <1.8 <4.[address] Antibody IU/[place] [address] [phone] Thyroglobulin Tumor Marker <0.1 ng/mL 6 Thyroglobulin Interpretation See Comment 7 Laboratory 03/21/2019 [facility] TSH (Thyroid 4.38 Normal 0.34 -5.[address] Stim Horm) mcIU/[place] [address] [phone] Free T4 (Free Thyroxine) 1.29 ng/dL High [...] testing methods are immunoenzymatic assays manufactured by [employer] and performed on the [employer] DXI 800. Values obtained from different assay methods or kits may be different and cannot be used interchangeably. The results cannot be interpreted as absolute evidence for the presence or absence of malignant disease. Test Performed by: [facility] [address] [place] [address] Garbage Collector Supervisor: Constantino Rodriguez M.D. Ph.D.; IA# [id number] Procedures Date Code Description Status 07/17/2019 [id number] Diabetic Retinal Eye Exam Completed 06/04/2019 13404 repair intermediate,scalp,axillae,trunk and/or Completed extremities 06/04/2019 97247 Excise Malig Lesion 1.1-2CM Trunk/Arm/Leg Completed 04/27/2019 75592 Destruction Of Lesions 15+ Completed 04/27/2019 00621 Tangential Biopsy Of Skin, Single Lesion Completed 04/10/2019 [id number] Diabetic Retinal Eye Exam Completed 10/10/2018 [id number] Diabetic Retinal Eye Exam Completed 08/08/2018 926964381 Diabetic Retinal Eye Exam Completed 02/18/2014 76864184 Colonoscopy Completed Medical Devices Description No Information Available Encounters Type Date Location Provider Dx Diagnosis Office Visit 04/27/2019 [facility] D[facility] Roman [place] MD L82.1 Other seborrheic 8:30a keratosis L57.0 Actinic keratosis L98.9 Disorder of the skin and subcutaneous tissue, unspecified Assessments Date Code Description Provider 08/06/2019 Z00.00 Encounter for general adult medical [...] MD tissue, unspecified Plan of Treatment Future Appointment(s):09/17/2019 10:20 am - Ladonna Aly M.D. at [facility] Internal [facility] - Ccmob10/25/2019 10:00 am - Roman [place] MD at [facility] Ulbqkgynydh74/16/2019 - Ladonna Aly M.D.Z00.00 Encounter for general adult medical examination without abnormal findingsComments:VACCINES:Flu shot every year in the fall.Tetanus: last one done in 2012Pneumonia vaccine: Pneumovax:done in 2013Prevnar: done in 2014Shingles vaccine: Zostavax: 50% effective. You had this in 2012Shingrix: 90% effective. This is a new shingles vaccine, available at pharmacies. Series of 2 shots, given 2-6 months apart. Most people get a flu-like reaction. Cost is about $400 - call your insurance about coverage. Not widely available - talk to your pharmacist about their waiting list SCREENING:Colonoscopy: last one done in 2013Prostate: monitoring with Dr. Leslie: just [id number] Essential (primary) hypertensionComments:You can crush your losartan and amlodipine - mix in small amount OJ or EnsureCheck BP at home, call me in 2 weeks.Follow up:6 jjrivT07.23 Occlusion and stenosis of bilateral carotid arteries Functional Status Description No Information Available Mental Status Description No Information Available Referrals Description No Information Available
[2019-09-26] MEDS ORDERED: LACTATED RINGERS IV ONE (20:24)
--- NOTE | 2019-09-26 20:24 | ED ---
HPI Febrile Illness - HPI Summary HPI Summary: 68 year old M presenting to [facility] accompanied by complains of chills and fever since 1630 today 09/26/2019. Patient states he was feeling fine all day before symptoms onset, went shopping with his and felt fine. Hx throat cancer. Patient developed increased difficultly swallowing today. Hx aspiration secondary to throat cancer. Patient states he hasn't been sick recently. Patient denies shortness of breath, headache, cough, abdominal pain, n/v/d. The patient rates the pain 0/10 in severity. Symptoms aggravated by nothing. Symptoms alleviated by nothing. Patient states he was vaccinated for influenza this year. He is currently being vaccinated for shingles. Medications reviewed. Allergies noted. No recent travel. No alcohol or smoking. - History of Current Complaint Chief Complaint: EDShortnessOfBreath Time Seen by Provider: 09/26/19 20:18 Hx Obtained From: Patient Onset/Duration: Started Hours Ago - 1630 today 09/26/2019, Still Present Timing: Constant Current Severity: None Pain Intensity: 0 Pain Scale Used: 0-10 Numeric Aggravating Factors: Nothing Alleviating Factors: Nothing Associated Signs and Symptoms: Negative - shortness of breath, headache, cough, abdominal pain, n/v/d, Other: - increased difficulty swallowing - Allergy/Home Medications Allergies/Adverse Reactions: Allergies Allergy/AdvReac Type Severity Reaction Status Date / Time Penicillins Allergy Unknown Verified 09/26/19 18:38 Reaction Details Home Medications: Home Medications Levothyroxine TAB* [Synthroid 100 MCG TAB*] 200 mcg PO 0500 09/26/19 [History Confirmed 09/27/19] Levothyroxine TAB* [Synthroid 25 MCG TAB*] 25 mcg PO 0500 09/26/19 [History Confirmed 09/27/19] amLODIPine TAB* [Norvasc 5 mg TAB*] 10 mg PO 0600 09/26/19 [History Confirmed ] PMH/Surg Hx/FS Hx/Imm Hx Endocrine/Hematology History: Denies: Hx Diabetes, Hx Thyroid Disease Cardiovascular History: Reports: Hx Hypertension - ON MEDS Denies: Other Cardiovascular Problems/Disorders Respiratory History: Denies: Hx Asthma, Hx Chronic Obstructive Pulmonary Disease (COPD) GI History: Denies: Hx Ulcer - Cancer History Cancer Type, Location and Year: thyroid cancer. squamous cell carcinoma of tongue. prostate cancer - Surgical History Surgery Procedure, Year, and Place: thyroidectomy. radical neck. inguinal hgernia repair Infectious Disease History: No Infectious Disease History: Denies: Hx Clostridium Difficile, Hx Hepatitis, Hx Human Immunodeficiency Virus (HIV), Hx of Known/Suspected MRSA, Hx Shingles, Hx Tuberculosis, Hx Known/ Suspected VRE, Hx Known/Suspected VRSA, History Other Infectious Disease, Traveled Outside the [place] in Last 30 Days - Family History Known Family History: Positive: Cardiac Disease - Social History Alcohol Use: None Substance Use Type: Reports: None Hx Tobacco Use: No Smoking Status (MU): Never Smoked Tobacco Have You Smoked in the Last Year: No Review of Systems Positive: Fever, Chills Positive: Other - increased difficulty swallowing Negative: Shortness Of Breath, Cough Negative: Vomiting, Diarrhea, Nausea Negative: Headache All Other Systems Reviewed And Are Negative: Yes Physical Exam - Summary Physical Exam Summary: Appearance: Well-appearing, Well-nourished, lying in bed comfortably Skin: Warm, dry, no obvious rash Eyes: sclera anicteric, no conjunctival pallor ENT: mucous membranes moist, pharynx appears normal Neck: Supple, nontender Respiratory: Inspiratory wheezes on the right Cardiovascular: Normal S1, S2. No murmurs. Normal distal pulses in tibial and radial bilaterally. Abdomen: Soft, nontender, normal active bowel sounds present Musculoskeletal: Normal, Strength/ROM Intact Neurological: A&Ox3, awake and alert, mentation is normal, speech is fluent and appropriate Psychiatric: affect is normal, does not appear anxious or depressed Triage Information Reviewed: Yes Vital Signs On Initial Exam: Initial Vitals Temp Pulse Resp BP Pulse Ox 101.4 F 94 20 109/69 88 09/26/19 18:31 09/26/19 18:31 09/26/19 18:31 09/26/19 18:31 09/26/19 18:31 Vital Signs Reviewed: Yes Procedures - Sedation Patient Received Moderate/Deep Sedation with Procedure: No Diagnostics - Vital Signs Vital Signs Temp Pulse Resp BP Pulse Ox 09/26/19 18:31 101.4 F 94 20 109/69 88 - Laboratory Result Diagrams: 09/28/19 05:30 09/28/19 05:30 Lab Statement: Any lab studies that have been ordered have been reviewed, and results considered in the medical decision making process. - Radiology CXR Radiology Interpretation Completed By: ED Physician - NO ACUTE PROCESS PENDING OFFICIAL REPORT Course/Dx - Course Course Of Treatment: 68 y/o M presents with sudden onset chills and fever since 1630 today 09/26/2019. Patient states he was feeling fine all day before symptoms onset. Hx throat cancer. Hx aspiration secondary to throat cancer. Patient states he hasn't been sick recently. Upon exam, he has inspiratory wheezes on the right. Bloodwork results with no significant abnormalities except for chloride 100, BUN/creatinine 20.2, glucose 134, WBC 11.1, Hgb 13.1, Hct 39, absolute neuts 10.1, absolute lymphs 0.4. Influenza A and B negative. CXR shows no acute process. In the ED course, the patient was given lactated ringers and Tylenol. Spoke with Dr. Zavala who agrees to admit patient. - Diagnoses Provider Diagnoses: Pneumonia - Provider Notifications Discussed Care Of Patient With: Lorene Zavala Time Discussed With Above Provider: 00:55 Instructed by Provider To: Admit As Inpatient Discharge ED - Sign-Out/Discharge Documenting (check all that apply): Patient Departure - Discharge Plan Condition: Good Disposition: ADMITTED TO [facility] - Billing Disposition and Condition Condition: GOOD Disposition: Admitted to [facility] - Attestation Statements Document Initiated by Altagracia: Yes Documenting Scribe: Erna Silverio Provider For Whom Altagracia is Documenting (Include Credential): MD Lulú Sanonibjennifer Attestation: Erna Richardson, scribed for Toño Moreland MD on 09/30/19 at 0629. Scribe Documentation Reviewed: Yes Provider Attestation: The documentation as recorded by the Erna paredes accurately reflects the service I personally performed and the decisions made by me, Toño Moreland MD Status of Scribe Document: Viewed
[2019-09-26 21:35] LABS: Albumin 3.8 g/dL (3.2-5.2); Albumin/Globulin Ratio 1.1 (1-3); BUN/Creatinine Ratio 20.2 (8-20); Calcium 9.1 mg/dL (8.6-10.3); EGFR African American 90.4 (>60); EGFR Non-African American 74.7 (>60); Globulin 3.5 g/dL (2-4); Potassium 3.8 mmol/L (3.5-5.0); Total Bilirubin 0.7 mg/dL (0.2-1.0); Total Protein 7.3 g/dL (6.4-8.9)
[2019-09-26] MEDS ORDERED: Acetaminophen TAB* 325 MG PO ONE (21:44)
[2019-09-26 21:55] LABS: ABS Lymphocytes 0.4 10^3/ul (1.0-4.8); ABS Monocytes 0.6 10^3/ul (0-0.8); ABS Neutrophils 10.1 10^3/ul (1.5-7.7); Eosinophil % 0.1 %; Hematocrit 39 % (42-52); Hemoglobin 13.1 g/dL (14.0-18.0); Lymphocyte % 3.6 %; Mean Corpuscular HGB Conc 33 g/dL (31-36); Mean Corpuscular Hemoglobin 30 pg (27-31); Mean Corpuscular Volume 89 fL (80-94); Mean Platelet Volume 9.6 fL (7.4-10.4); Platelet Count 152 10^3/uL (150-450); Red Cell Distribution Width 14 % (10-15); White Blood Count 11.1 10^3/uL (3.5-10.8)
[2019-09-26 22:58] LABS: Influenza A Molecular Negative (Negative); Influenza B Molecular Negative (Negative)
[2019-09-27 01:22] LABS: Urine Appearance Clear; Urine Bilirubin Negative (Negative); Urine Blood Negative (Negative); Urine Color Yellow; Urine Glucose Negative (Negative); Urine Ketones Negative (Negative); Urine Nitrite Negative (Negative); Urine Protein Negative (Negative); Urine Specific Gravity 1.015 (1.010-1.030); Urine Urobilinogen Negative (Negative)
[2019-09-27 01:23] LABS: C Reactive Protein 36.37 mg/L (<8.01)
--- NOTE | 2019-09-27 02:22 | HP ---
CC: Dr. Aly * HISTORY AND PHYSICAL: DATE OF ADMISSION: 09/27/19 PRIMARY CARE PROVIDER: Dr. Aly. CHIEF COMPLAINT: Chills and fever. HISTORY OF PRESENT ILLNESS: Mr. Mendoza is a 68-year-old male who has had a history of tongue cancer, status post chemoradiation and radical neck dissection in 2006, thyroid cancer status post total thyroidectomy, and hypertension who presents to the emergency room with complaints of chills and fever. The patient states that he had been in his usual state of health up until approximately 4 p.m. on the day prior to admission when he very suddenly started to feel chills. He was shaking. He describes feeling very hot. He did not check his temperature at home. He did not have any increased shortness of breath or cough at that point. He was concerned by the severe chills and shaking and therefore presented to the emergency room for evaluation. The patient also notes he chronically aspirates. When he is eating and drinking he does aspirate routinely. I noticed a cup of sputum on the table and asked him about that. I asked if this was usual for him which he stated yes, but then he added the comment that there was some of his Ensure in that. He does eat pureed food. He drinks 2 to 3 Ensures per day. PAST MEDICAL HISTORY: 1. Tongue cancer. 2. Hypertension. 3. Hypothyroidism, status post thyroidectomy. 4. History of thyroid cancer. 5. Prostate cancer. PAST SURGICAL HISTORY: 1. Esophageal dilation. 2. Thyroidectomy. 3. Bilateral neck dissection. 4. Bilateral inguinal hernia repairs. MEDICATIONS: 1. Amlodipine 10 mg p.o. daily. 2. Losartan 100 mg p.o. daily. 3. Levothyroxine 225 mcg p.o. daily. 4. Aspirin 81 mg p.o. daily. ALLERGIES: PENICILLIN and HYDROCHLOROTHIAZIDE. FAMILY HISTORY: Mom at the age of 78 of lung cancer. She was an avid smoker. Dad at the age of 86 of dementia. SOCIAL HISTORY: The patient has been a lifelong nonsmoker. He was exposed to significant second-hand smoke. He does not drink alcohol. 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 He is . He has no children. His Rosaline is his healthcare proxy. REVIEW OF SYSTEMS: A complete 11-system review of systems is obtained. Pertinent positives and negatives are as per HPI and otherwise negative. PHYSICAL EXAMINATION GENERAL: The patient is a well-developed, elderly male, seen sitting up in the stretcher in no acute distress. VITAL SIGNS: Blood pressure 101/59, pulse 69, respiratory rate 20, temp 101.4, O2 sat 86% on room air. HEENT: Pupils are equal. Extraocular muscles intact. Oropharynx is clear and moist. The patient has very firm neck tissue as he is status post radical neck dissection and thyroidectomy. PULMONARY: Breath sounds are coarse throughout. Question slightly diminished at the right base. There are no focal crackles. CARDIAC: Normal S1, S2. Regular rate and rhythm. I do not appreciate any murmurs. There is 1+ ankle edema left being worse than the right. ABDOMEN: Bowel sounds are present. Abdomen is soft, nontender, nondistended. MUSCULOSKELETAL: There is no cyanosis or clubbing of the digits. There is full active range of motion of all 4 extremities. SKIN: Skin is hot to the touch. There are no rashes. NEURO: Cranial nerves II through XII are grossly intact. Sensation is intact to light touch throughout. Strength is 5/5 and symmetric in both upper and lower extremities bilaterally. PSYCH: The patient is alert. He is oriented x3. Affect appears appropriate. DIAGNOSTIC STUDIES/LAB DATA: WBC 11.1, hemoglobin 13.1, hematocrit 39, platelets 152. Sodium 135, potassium 3.8, chloride 100, CO2 is 30, BUN 20, creatinine 0.99, glucose 134, lactic acid 0.9, calcium 9.1. Bilirubin 0.7, AST 19, ALT 12, alkaline phosphatase 59, troponin 0. Albumin 3.8. Influenza A and B negative. Chest x-ray to my interpretation, I question a right lower lobe infiltrate along with possible right lower lobe mass. So, we will await formal read by Radiology. ASSESSMENT AND PLAN: Mr. Mendoza is a 68-year-old male who chronically aspirates in the setting of having had tongue cancer status post radiation and chemotherapy and radical neck dissection and presents to the emergency room with complaints of chills and fever. 1. Possible right lower lobe pneumonia. At this point, my leading diagnosis is that the patient may have a right lower lobe pneumonia. I would like to get a CAT scan of the chest to further delineate his lung parenchyma. For now, I am going to start ceftriaxone and clindamycin to cover strep and any potential anaerobes from his chronic aspiration. I do not think a sputum culture will be incredibly useful at this time as he denies any increase in the sputum production and given his chronic aspiration it will likely have a lot of mouth tyrone. At this point, he is needing supplemental oxygen. He dropped to 86% while on room air. He was 96% on 3 L. I have taken this down to 2 L and we will monitor his O2 saturations. 2. Hypertension. The patient will be continued on his usual doses of amlodipine and losartan. 3. Hypothyroidism. This is status post thyroidectomy. He will continue on Synthroid 225 mcg p.o. daily. 4. Prostate cancer. This is in just surveillance at this time. 5. DVT prophylaxis: According to the Adult Thrombosis Prophylaxis Risk Factor Assessment Guide, the patient has a total risk factor score of 4, making him high risk. He will be placed on Lovenox 40 mg subcutaneous daily. 6. Code status is full. TIME SPENT: 65 minutes were spent admitting this patient. [id number]/[facility] #: [id number] AMIE
[2019-09-27] MEDS: NS 0.9% 1000 ML** 1,000 ML IV SCH ×2 (03:22→14:09)
[2019-09-27] MEDS: cefTRIAXone(*) 1 GM in NS 0.9% 50 ML* 50 ML IVPB SCH (03:22)
[2019-09-27] MEDS: Clindamycin 300 MG IVPREMIX* 300 MG/50 ML SDV IV SCH ×4 (04:26→20:51)
[2019-09-27] MEDS: Levothyroxine TAB* 100 MCG TAB PO SCH (05:05)
[2019-09-27] MEDS: Levothyroxine TAB* 25 MCG TAB PO SCH (05:05)
[2019-09-27] MEDS: Losartan TAB* 25 MG PO SCH (06:08)
[2019-09-27] MEDS: Aspirin 81 mg CHEW TAB* 81 MG TAB.CHEW PO SCH (06:08)
[2019-09-27] MEDS: amLODIPine TAB* 5 MG PO SCH (06:08)
--- NOTE | 2019-09-27 14:22 | PN ---
Subjective Date of Service: 09/27/19 Interval History: Mr. Mendoza presented to the ER with fever and chills. He always has a productive cough and aspiration since tongue cancer radiation. He reports no change in his cough. Reports feeling poorly this morning. Has received antibiotics, and states he is feeling "much better," and denies any recent fevers, chills. He has no other complaints. Objective Active Medications: Amlodipine Besylate (Norvasc Tab*) 10 mg PO 0600 [facility] Last Admin: 09/27/19 06:08 Dose: 10 mg Aspirin (Aspirin 81 Mg Chew Tab*) 81 mg PO 0600 [facility] Last Admin: 09/27/19 06:08 Dose: 81 mg Enoxaparin Sodium (Lovenox(*)) 40 mg SUBCUT Q24H [facility] Sodium Chloride (Ns 0.9% 1000 Ml) 1,000 mls @ 100 mls/hr IV PER RATE [facility] Last Admin: 09/27/19 14:09 Dose: 100 mls/hr Clindamycin HCl/Dextrose (Cleocin 300 Mg Ivpremix(*)) 300 mg in 50 mls @ 200 mls/hr IV Q6H [facility] Last Admin: 09/27/19 09:53 Dose: 200 mls/hr Ceftriaxone Sodium 1 gm/ (Sodium Chloride) 50 mls @ 100 mls/hr IVPB Q24H [facility] Last Admin: 09/27/19 03:22 Dose: 100 mls/hr Levothyroxine Sodium (Synthroid Tab*) 200 mcg PO 0500 [facility] Last Admin: 09/27/19 05:05 Dose: 200 mcg Levothyroxine Sodium (Synthroid Tab*) 25 mcg PO 0500 [facility] Last Admin: 09/27/19 05:05 Dose: 25 mcg Losartan Potassium (Cozaar Tab*) 100 mg PO 0600 [facility] Last Admin: 09/27/19 06:08 Dose: 100 mg Vital Signs: Temp Pulse Resp BP Pulse Ox 98.3 F 60 18 114/64 93 09/27/19 15:46 09/27/19 15:46 09/27/19 15:46 09/27/19 15:46 09/27/19 15:46 Oxygen Devices in Use Now: Nasal Cannula Appearance: Mr. Mendoza is an older white male who is sitting up in bed. He appears chronically ill, but in no acute distress. Eyes: No Scleral Icterus, PERRLA Ears/Nose/Mouth/Throat: NL Teeth, Lips, Gums, Clear Oropharnyx, Mucous Membranes Moist Neck: NL Appearance and Movements; NL JVP, Trachea Midline Respiratory: Symmetrical Chest Expansion and Respiratory Effort, - - decreased breath sounds RLL, inspiratory rhonchi throughout b/l lungs Cardiovascular: NL Sounds; No Murmurs; No JVD, RRR, No Edema Abdominal: NL Sounds; No Tenderness; No Distention, No Hepatosplenomegaly Extremities: No Edema, No Clubbing, Cyanosis Neurological: Alert and Oriented x 3 Result Diagrams: 09/26/19 21:08 09/26/19 21:08 Microbiology and Other Data: Microbiology 09/27/19 05:10 Gram Stain - Final Sputum Expectorated Assess/Plan/Problems-Billing Assessment: 68 yom PMHx HTN, hypothyroid, h/o thyroid and tongue cancer, prostate cancer presents with fever, chills and was found to have b/l pneumonia. - Patient Problems (1) Bilateral pneumonia Comment: -b/l infiltrates on CT, worse in RLL -continue ceftriaxone and clinda -pt reports improvement; he has been afebrile -CRP mildly elevated -negative flu (2) Hypertension Comment: -SBP 110-140's -continue losartan, amlodipine (3) Hypothyroidism Comment: -continue levothyroxine (4) Prostate cancer Comment: -surveillance -continue outpatient follow up (5) H/O tongue cancer (6) DVT prophylaxis Comment: -Lovenox (7) Full code status Status and Disposition: Inpatient. Discharge when stable.
[2019-09-27] MEDS ORDERED: Enoxaparin(*) 40 MG/0.4 ML SYR SUBCUT SCH (21:00)
[2019-09-28] MEDS: NS 0.9% 1000 ML** 1,000 ML IV SCH (00:50)
[2019-09-28] MEDS: cefTRIAXone(*) 1 GM in NS 0.9% 50 ML* 50 ML IVPB SCH (02:09)
[2019-09-28] MEDS: Clindamycin 300 MG IVPREMIX* 300 MG/50 ML SDV IV SCH ×2 (03:44→09:50)
[2019-09-28] MEDS: Levothyroxine TAB* 25 MCG TAB PO SCH (05:12)
[2019-09-28] MEDS: Levothyroxine TAB* 100 MCG TAB PO SCH (05:12)
[2019-09-28] MEDS: Aspirin 81 mg CHEW TAB* 81 MG TAB.CHEW PO SCH (06:07)
[2019-09-28] MEDS: amLODIPine TAB* 5 MG PO SCH (06:07)
[2019-09-28] MEDS: Losartan TAB* 25 MG PO SCH (06:07)
[2019-09-28 06:10] LABS: Hematocrit 44 % (42-52); Hemoglobin 14.8 g/dL (14.0-18.0); Mean Corpuscular HGB Conc 34 g/dL (31-36); Mean Corpuscular Hemoglobin 30 pg (27-31); Mean Corpuscular Volume 90 fL (80-94); Red Blood Count 4.86 10^6 /uL (4.18-5.48); Red Cell Distribution Width 14 % (10-15); White Blood Count 5.4 10^3/uL (3.5-10.8)
[2019-09-28 06:27] LABS: BUN/Creatinine Ratio 15.2 (8-20); Calcium 8.9 mg/dL (8.6-10.3); EGFR African American 117.3 (>60); Potassium 3.8 mmol/L (3.5-5.0)
[2019-09-28 06:31] LABS: ABS Basophils 0.1 10^3/ul (0-0.2); ABS Eosinophils 0.4 10^3/ul (0-0.6); ABS Lymphocytes 0.9 10^3/ul (1.0-4.8); ABS Monocytes 0.3 10^3/ul (0-0.8); ABS Neutrophils 3.7 10^3/ul (1.5-7.7); Eosinophil % 7.7 %; Mean Platelet Volume 9.2 fL (7.4-10.4); Nucleated Red Blood Cells % 0.7; Platelet Count 147 10^3/uL (150-450)
[2019-09-28 11:32] VITALS: BP 139/73
--- NOTE | 2019-09-28 12:08 | DS ---
CC: Dr. Aly * DISCHARGE SUMMARY: DATE OF ADMISSION: 09/27/19 DATE OF DISCHARGE: 09/28/19 PRIMARY CARE PROVIDER: Dr. Aly. ATTENDING PHYSICIAN: Dr. Goldstein * (dictated by RAYMOND Varma). PRIMARY DIAGNOSIS: Bilateral pneumonia, likely aspiration. SECONDARY DIAGNOSES: 1. Hypertension. 2. Hypothyroidism, status post thyroidectomy due to thyroid cancer. 3. Prostate cancer. 4. Tongue cancer. STUDIES WHILE IN THE HOSPITAL: 1. Chest x-ray, impression: Right lower lobe airspace opacification, atelectasis versus infiltrate. 2. CT chest, impression: Minimal patchy bilateral pulmonary infiltrates, greatest in the right lower lobe consistent with pneumonia, minimal fibroatelectatic change involving the right lower lobe and to a lesser degree the right middle lobe and left lower lobe. Calcified granuloma in the left lower lobe. DISCHARGE MEDICATIONS: Home medications: 1. Amlodipine 10 mg p.o. daily. 2. Aspirin 81 mg p.o. daily. 3. Levothyroxine 225 mcg p.o. daily. 4. Losartan 100 mg p.o. daily. New home medications: 1. Cefdinir 250/5 mL, take 300 mg p.o. b.i.d. x7 days. 2. Clindamycin 75 mg/5 mL, take 300 mg p.o. q.i.d. x7 days. HISTORY OF PRESENT ILLNESS/HOSPITAL COURSE: Mr. Mendoza is a 68-year-old male with past medical history of tongue cancer, status post chemoradiation, radical neck dissection in 2017; history of thyroid cancer, status post thyroidectomy; hypertension, who presented to the ER with complaints of fever and chills. For full and complete details, please see the history and physical dictated by Lorene Zavala DO, but in short, the patient states that he developed a sudden chill and fevers at 4 p.m. the day prior to admission. He reports frequent aspiration events since chemoradiation. A chest x-ray showed possible right lower lobe infiltrate; therefore, a CT of the chest was obtained and showed bilateral pulmonary infiltrates, greatest in the right lower lobe consistent with pneumonia. The patient was started on broad-spectrum coverage antibiotics including ceftriaxone and clindamycin for anaerobes for possible aspiration pneumonia. At admission, the patient was febrile with a temperature of 101.4. He had a mild leukocytosis of 11.1. He was hemodynamically stable and admitted to the hospital and started on the aforementioned antibiotics. He was seen later in the day after admission and reports that he has great improvement. He was initially requiring oxygen but was weaned off. At discharge, he required no oxygen. He is ambulating the halls with oxygen saturations at 98% on room air. The patient is eager for discharge. He presented with fever, chills, and some hypoxia. He does report that he always has a productive cough, and there has been no change in his coffee. He continues to have a productive cough with no change, but denies fevers and chills. He had a bowel movement this morning. He is eating and drinking well. He denies headache, dizziness, lightheadedness, vision changes, difficulty speaking, chest pain, shortness of breath, fever, chills, abdominal pain, nausea, vomiting, diarrhea, constipation , myalgias, arthralgias. Mr. Mendoza is stable for discharge home. PHYSICAL EXAMINATION: Vital Signs: Temperature 98.4 oral, heart rate 56, respiratory rate 18, oxygen saturation 98% on room air, blood pressure 136/73. General: Mr. Mendoza is a well-developed, well-nourished, average weight older white male who is sitting up in bed. He appears well and in no acute distress. He is breathing comfortably on room air. HEENT: PERRL. EOMI. Nonicteric sclerae. Hearing is grossly intact. Oral mucous membranes are moist. There are no lesions. Pharynx is clear. Tongue is at midline. Palate elevates symmetrically. Cardiovascular: Regular rate and rhythm with S1, S2 present. No murmurs, rubs, clicks, or gallops. There is no JVD or peripheral edema. Pulmonary: Symmetrical chest expansion. No use of accessory muscles. The lungs are clear to auscultation bilaterally without rhonchi, wheeze, or rales. Abdomen: Bowel sounds in all quadrants, soft, nontender to palpation. Musculoskeletal: Full range of motion without pain or deformities. Neuro: The patient is awake. He is alert and oriented x3. Cranial nerves II through XII are grossly intact. He has a steady gait with no impairment. His muscle strength is 5/5 bilaterally in upper and lower extremities. DISCHARGE PLAN: Mr. Mendoza will be discharged to home. CONDITION: Good. DIET: Heart healthy. ACTIVITY: As tolerated. EDUCATION: 1. Follow up with primary care provider in 4 to 7 days. Discuss recent hospitalization. 2. Return to the ER or nearest hospital if you experience any chest pain or discomfort, shortness of breath, high fevers, chills, night sweats, dizziness, lightheadedness, loss of consciousness, or any other worrisome signs or symptoms. This is a summarized report of a complex medical history and hospital stay. For further details, please see the entire medical record. TIME SPENT: Approximately 35 minutes were spent on this discharge, greater than half that time was spent [id number] with the patient and his discussing discharge plans and instructions. RAYMOND BAILEY [id number]/[facility] #: [id number] MTDD
== END 2019-09-28 11:40 | disposition home or self-care (01) | DRG 179 ==
LOC: ED 18:19 → MED 09-27 00:55 → OBSVTOIN 09-27 11:00
PROVIDERS: ADMIT Hospitalist; ATTEND Internal Medicine
DX: J69.0 Pneumonitis due to inhalation of food and vomit (principal); R09.02 Hypoxemia; I10 Essential (primary) hypertension; E89.0 Postprocedural hypothyroidism; Z88.0 Allergy status to penicillin; Z85.46 Personal history of malignant neoplasm of prostate; Z85.850 Personal history of malignant neoplasm of thyroid; Z85.810 Personal history of malignant neoplasm of tongue; Z92.21 Personal history of antineoplastic chemotherapy; Z92.3 Personal history of irradiation; Z79.890 Hormone replacement therapy; Z88.8 Allergy status to other drugs, medicaments and biological substances; Z80.1 Family history of malignant neoplasm of trachea, bronchus and lung; Z79.82 Long term (current) use of aspirin; Z79.899 Other long term (current) drug therapy
CPT/HCPCS: 36415; 71046; 71250; 80048; 80053; 81003; 83605; 84484; 85025; 86140; 87040; 87070; 87205; 87899; 99284; A9270-GY; G0378; J0696; J1650

== ENCOUNTER 2019-10-23 10:50 | Observation (INO) | payer MEDICARE ==
[2019-10-23] MEDS ORDERED: Glucagon* 1 MG VIAL IM ONE (11:00)
[2019-10-23] MEDS ORDERED: Clindamycin 600 MG/D5W BAG(*) 600 MG/50 ML BAG IV ONE (11:00)
[2019-10-23 12:16] LABS: Mean Platelet Volume 9.5 fL (7.4-10.4); Platelet Count 180 10^3/uL (150-450)
[2019-10-23] MEDS ORDERED: fentaNYL* 50 MCG/ML 2 ML VIAL (100 MCG VIAL) ONE (12:18)
[2019-10-23] MEDS ORDERED: Midazolam* 1 MG/ML 2 ML VIAL (2 MG) ONE (12:19)
[2019-10-23] MEDS ORDERED: Glucagon* 1 MG VIAL ONE (12:20)
[2019-10-23 12:23] LABS: Activated Partial Thrombo Time 36.3 seconds (26.0-38.0); INR 1.1 (0.82-1.09)
[2019-10-23] MEDS ORDERED: Lidocaine 2% JELLY* 6 ML JELLY TOPICAL ONE (12:43)
[2019-10-23] MEDS ORDERED: Bupivacaine 0.5% SDV PF* 30ML VIAL ONE (12:43)
[2019-10-23] MEDS ORDERED: Albuterol 2.5 MG/3 ML NEB.SOL* (0.083%) INH PRN (15:33)
[2019-10-23] MEDS ORDERED: Acetaminophen TAB* 325 MG PO PRN (16:12)
[2019-10-23 17:28] LABS: ABS Lymphocytes 0.5 10^3/ul (1.0-4.8); ABS Monocytes 0.3 10^3/ul (0-0.8); ABS Neutrophils 3.4 10^3/ul (1.5-7.7); Eosinophil % 0.8 %; Hematocrit 42 % (42-52); Hemoglobin 14.4 g/dL (14.0-18.0); Lymphocyte % 10.9 %; Mean Corpuscular HGB Conc 34 g/dL (31-36); Mean Corpuscular Hemoglobin 30 pg (27-31); Mean Corpuscular Volume 88 fL (80-94); Nucleated Red Blood Cells % 0.1; Platelet Count 151 10^3/uL (150-450); Red Blood Count 4.77 10^6 /uL (4.18-5.48); Red Cell Distribution Width 14 % (10-15); White Blood Count 4.2 10^3/uL (3.5-10.8)
[2019-10-23 17:45] LABS: BUN/Creatinine Ratio 20.5 (8-20); Calcium 9.2 mg/dL (8.6-10.3); EGFR African American 103.3 (>60); EGFR Non-African American 85.4 (>60); Potassium 3.7 mmol/L (3.5-5.0)
--- NOTE | 2019-10-23 18:43 | HP ---
CC: Dr. Aly * HISTORY AND PHYSICAL: DATE OF ADMISSION: 10/23/19 PRIMARY CARE PROVIDER: Dr. Aly. CHIEF COMPLAINT: Status post G-tube placement with postprocedural hypoxia. HISTORY OF PRESENT ILLNESS: Mr. Mendoza is a 69-year-old male who had a history of tongue cancer, status post chemoradiation and radical neck dissection in 2006 ; thyroid cancer, status post total thyroidectomy; and hypertension, who underwent G- tube placement with Dr. Villarreal from [facility] today. The plan was for the patient to be admitted to the surgical stay unit postprocedurally for monitoring overnight. However, after the procedure, the patient when he was sat up began to have significant coughing and dropped his O2 saturation to 80% on room air. The patient typically does not use oxygen. He does note that he very frequently will cough up sputum. He feels that there is some sputum stuck at this point. He has had no fevers or chills. The cough and sputum production is essentially at baseline. He does not feel any shortness of breath at this time. PAST MEDICAL HISTORY: 1. Tongue cancer. 2. Hypertension. 3. Hypothyroidism, status post thyroidectomy. 4. History of thyroid cancer. 5. Prostate cancer. PAST SURGICAL HISTORY: 1. Esophageal dilation. 2. Thyroidectomy. 3. Bilateral neck dissection. 4. Bilateral inguinal hernia repairs. MEDICATIONS: 1. Amlodipine 10 mg p.o. daily. 2. Losartan 100 mg p.o. daily. 3. Levothyroxine 225 mcg p.o. daily. 4. Aspirin 81 mg p.o. daily. ALLERGIES: PENICILLIN and HYDROCHLOROTHIAZIDE. FAMILY HISTORY: Mom at the age of 78 of lung cancer. She was an avid smoker. Dad at the age of 86 of dementia. SOCIAL HISTORY: The patient has been a lifelong nonsmoker. He was exposed to significant secondhand smoke. He does not drink alcohol. 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 He is . He has no children. His Rosaline is his healthcare proxy. REVIEW OF SYSTEMS: Complete 11-system review of systems is obtained. Pertinent positives and negatives are as per HPI and otherwise negative. PHYSICAL EXAMINATION VITAL SIGNS: I do not have recorded vital signs at this time, though while I was in the postprocedure area of Radiology, the patient's O2 saturation was noted to be 88% on 2 L. Ultimately, after approximately 1 hour of coughing bringing up sputum and O2 supplementation, his O2 saturation increased to 96% prior to transfer to the floor. HEENT: Pupils are equal. Extraocular muscles are intact. Oropharynx is clear and moist. PULMONARY: There are few right lower lobe crackles, otherwise lungs are clear but breath sounds are diminished throughout. CARDIAC: Normal S1, S2. Regular rate and rhythm. I do not appreciate any murmurs. ABDOMEN: Bowel sounds present. Abdomen is soft. He is slightly tender around the new G-tube insertion site. MUSCULOSKELETAL: There is no cyanosis or clubbing of the digits. There is full active range of motion of all 4 extremities. NEUROLOGIC: Cranial nerves II through XII are grossly intact. Sensation is intact to light touch throughout. PSYCH: The patient is alert. He is oriented x3. Affect appears appropriate. SKIN: Visible areas of skin are warm and dry and without rash. DIAGNOSTIC DATA/LAB DATA: Preprocedure platelet count 180. INR 1.1. Chest x-ray post G-tube insertion, there is appearance consistent with worsening right lower lobe pneumonia relative to 09/26/19 chest x-ray. ASSESSMENT AND PLAN: Mr. Mendoza is a 69-year-old male who has an extensive history of head and neck cancer, status post radiation therapy, bilateral neck dissection as well as thyroid cancer, status post thyroidectomy, who has had chronic dysphagia and underwent G-tube placement with [facility] today and developed postprocedural hypoxia. 1. Postprocedural hypoxia. While the chest x-ray is being read as worsening infiltrate consistent with worsening pneumonia, the patient clinically does not appear to have pneumonia. He does not have any fever or chills. His cough is at baseline and his sputum production is also at baseline. I am going to hold off on antibiotic therapy at this time. If he were to develop fever or his white blood cell count comes up elevated with the labs that I have asked to be drawn, we will consider starting therapy for probable aspiration pneumonia. My suspicion is the patient's hypoxia is secondary to mucous plugging. Once he was sat upright and coughed up a significant amount of mucous, his O2 saturations have dramatically improved though he is still requiring supplemental oxygen. This will be weaned down over the course of the night hopefully back to room air. 2. Chronic dysphagia. The patient is now status post G-tube tube placement. This can start to be utilized at 2 a.m. Chief Relay Tester is seeing the patient currently to give recommendation on a tube feeding regimen. 3. Hypertension. Blood pressure has fluctuated some. At times, he has been quite elevated with systolics in the 180s, other times the systolics in the 130s while I watched him on the monitor in the postprocedure room. I am going to hold off on giving any medications at this time and we will monitor his blood pressure. He ultimately will be resumed on his usual dose of amlodipine and losartan. 4. Hypothyroidism. This is post thyroidectomy. We will continue levothyroxine 225 mcg p.o. daily. 5. DVT prophylaxis: According to the Adult Thrombosis Prophylaxis Risk Factor Assessment Guide, the patient has a total risk factor score of 4 making him high risk. Ambulation for now will be utilized as DVT prophylaxis as the patient is very fresh from having a G-tube placed. 6. Code status is full. TIME SPENT: Sixty five minutes was spent admitting this patient. [id number]/CPS #: [id number] AMIE
[2019-10-23] MEDS: Morphine INJ* 2 MG/ML 1 ML SYRINGE (TWO MG - NEW SYRINGE VERSION) IV PRN ×2 (19:29→23:57)
[2019-10-24] MEDS: Morphine INJ* 2 MG/ML 1 ML SYRINGE (TWO MG - NEW SYRINGE VERSION) IV PRN (04:02)
[2019-10-24] MEDS: amLODIPine TAB* 5 MG PO SCH ×2 (04:10→10:57)
[2019-10-24] MEDS: Levothyroxine TAB* 25 MCG TAB PO SCH ×2 (04:10→10:40)
[2019-10-24] MEDS: Levothyroxine TAB* 100 MCG TAB PO SCH ×2 (04:11→10:40)
[2019-10-24] MEDS: Losartan TAB* 25 MG PO SCH ×2 (04:11→10:57)
[2019-10-24] MEDS: Aspirin 81 mg CHEW TAB* 81 MG TAB.CHEW PO SCH ×2 (04:11→10:57)
--- NOTE | 2019-10-24 07:01 | PN ---
Progress Note - Progress Note Date of Service: 10/24/19 Note: brief note: full consult to follow pt seen and examined at 06:40 doing well, slight pain at peg insertion site with movt no n/v, otherwise doing well no breathing issues, on RA VS:98.1, 123/65, 55, 94% on RA nad, alert +bs, soft, no pain x at insertion site, OK to use PEG, nutrition has seen pt; nursing teaching this am when arrives by nursing staff ok to dc later today after teaching can fu with Dr Julio as needed Neftaly Julio MD [facility], [phone]
--- NOTE | 2019-10-24 10:31 | PN ---
Progress Note - Progress Note Date of Service: 10/24/19 SOAP: Subjective: The patient describes only "discomfort" at the gastrostomy site. He denies rate-able pain. Denies nausea or vomiting. The patient had an episode of coughing up bloody sputum once overnight but this has not continued. Objective: Laboratory Tests 10/23/19 17:21 WBC 4.2 RBC 4.77 Hgb 14.4 Hct 42 Selected Entries 10/24/19 07:07 Temperature 97.9 F Temperature Oral Source Pulse Rate 62 Respiratory 16 Rate Blood Pressure 143/73 (mmHg) Blood Pressure 96 Mean O2 Sat by Pulse 92 Oximetry NAD, Sitting up and conversant Abdomen is soft and only minimally tender at the tube site. The dressing is clean and dry and intact There is clear fluid in the gastrostomy tube. Assessment: 69-year-old man postoperative day #1 status post ultrasound and fluoroscopy guided placement of a percutaneous gastrostomy tube. Plan: 1. Begin tube feeds as advised by the dietary note. 2. The patient will follow-up with interventional radiology in approximately one week to have the sutures and retention tacks removed. 3. Routine follow-up with interventional radiology going forward will be routine exchange approximately every 3 months.
[2019-10-24 14:46] VITALS: BP 122/90
--- NOTE | 2019-10-24 17:08 | CONS ---
CONSULTATION REPORT: DATE OF CONSULT: 10/24/19 REQUESTING PHYSICIAN: Dr. Villarreal.* INDICATION: Status post G-tube placement. NARRATIVE: Mr. Mendoza is a pleasant 69-year-old gentleman, well known to myself. He has a history of tongue cancer, radiation therapy, radical neck dissection, who underwent a successful PEG tube placement with Dr. Villarreal in [facility] yesterday. He was admitted overnight as per routine protocol. This morning, I did see him at approximately 6:40 a.m. He is doing well. He states that he had a good night. He denies any respiratory issues. He is having some pain only at the PEG tube insertion site. He states that it is worse if he moves or coughs. Otherwise, no abdominal pain. He states he is doing well. PAST MEDICAL HISTORY: Tongue cancer, hypothyroid, hypertension, prostate cancer. PAST SURGICAL HISTORY: Includes thyroidectomy, neck dissection, inguinal hernia repair. MEDICATIONS UPON ADMISSION: Include: 1. Aspirin 81 mg. 2. Centrum Silver. 3. Amlodipine 10 mg. 4. Losartan 100 mg. 5. Levothyroxine 225 mcg. ALLERGIES: To HYDROCHLOROTHIAZIDE and PENICILLIN. FAMILY HISTORY: Lung cancer, dementia. SOCIAL HISTORY: No alcohol. REVIEW OF SYSTEMS: Twelve systems were reviewed and other than that mentioned in the HPI were unremarkable. PHYSICAL EXAM: Temperature is 98.1, blood pressure is 123/65, pulse is 55, O2 sat is 94% on room air with respiratory rate of 17. General: Well-appearing male, in no apparent distress, alert, oriented, pleasant, fluent. HEENT: Mucous membranes are moist without lesions, ulcers, or exudate. Neck is supple. Trachea is midline. Head is normocephalic, atraumatic. Heart: Regular rate and rhythm. Lungs: Clear to auscultation. Abdomen: Positive bowel sounds. Soft. He has a clean, dry, and intact PEG tube site in the left upper quadrant. There is clear fluid coming into the PEG tube when the tube is opened. He only admits to pain around the PEG tube site, nowhere else. LABORATORY DATA: Of note, he did have a hemoglobin of 14.4. INR is 1.10. BUN is 18. ASSESSMENT AND PLAN: Mr. Mendoza is a pleasant 69-year-old gentleman, who is status post successful PEG tube placement by Dr. Villarreal. At this point, I think it is safe to use the PEG tube. He has seen Nutrition already. Nurses can teach him about the PEG tube. He has the nutritional consult and from a GI standpoint, he can be discharged later on today. He can follow up with me as needed. [id number]/CPS #: [id number] MTDD
--- NOTE | 2019-10-24 22:13 | DS ---
CC: Dr. Villarreal; Dr. Aly* DISCHARGE SUMMARY: DATE OF ADMISSION: 10/23/19 DATE OF DISCHARGE: 10/24/19 PRIMARY CARE PROVIDER: Dr. Aly. PRINCIPAL DIAGNOSIS: Chronic dysphagia requiring G-tube placement by Interventional [facility]iology. SECONDARY DIAGNOSES: 1. Hypertension. 2. Hypothyroidism. DISCHARGE MEDICATIONS: 1. Amlodipine 10 mg p.o. daily. 2. Losartan 100 mg p.o. daily. 3. Levothyroxine 225 mcg p.o. daily. 4. Aspirin 81 mg p.o. daily. HOSPITAL COURSE: Mr. Mendoza is a 69-year-old male, who has chronic dysphagia and underwent G-tube insertion by Dr. Villarreal from [facility] on . Postprocedurally, the patient developed significant hypoxia with O2 saturations at 80% on room air. With the application of supplemental oxygen and the patient doing coughing and bringing up mucus, he was able to raise his O2 saturation to the low 90s. He continued on supplemental oxygen for several hours. His O2 saturations otherwise normalized. The patient was monitored overnight due to this hypoxia. Additionally, he was seen by a dietitian and given a regimen for Jevity 1.2 seven cans spread throughout the day along with 600 mL of free water throughout the day as well. The patient and his have been instructed how to use the G-tube. Overall, the patient is feeling quite well. He is very anxious to go home. PHYSICAL EXAMINATION: On the day of discharge, the patient is awake, alert, and oriented, sitting up in the bed in no acute distress. Cardiac exam reveals normal S1, S2 with regular rate and rhythm. Lungs are clear. Abdomen is soft, nontender, nondistended. He is minimally tender around the G-tube insertion site. He moves all 4 extremities symmetrically. Skin is warm and dry and without rash. FOLLOWUP CONCERNS: The patient is being discharged home today, 10/24/19. ACTIVITY LEVEL: As tolerated. DIET: Jevity 1.2 seven cans per day along with 600 mL of extra free water throughout the day. CONDITION ON DISCHARGE: Stable. The patient is to follow up with Dr. Aly in the next 4 to 7 days. The patient will be contacted by Dr. Villarreal's office for a followup appointment for suture removal. TIME SPENT: Twenty-five minutes was spent discharging this patient. [id number]/[facility] #: [id number] MTDD
[2019-11-11] MEDS ORDERED: amLODIPine TAB* 5 MG PO SCH (18:00)
== END 2019-10-24 15:10 | disposition home or self-care (01) ==
LOC: IMG 10:50 → MED 15:28
PROVIDERS: ADMIT Hospitalist; ATTEND Hospitalist
DX: R09.02 Hypoxemia (principal); R13.10 Dysphagia, unspecified; I10 Essential (primary) hypertension; E89.0 Postprocedural hypothyroidism; Z79.82 Long term (current) use of aspirin; Z79.890 Hormone replacement therapy; Z85.850 Personal history of malignant neoplasm of thyroid; Z85.810 Personal history of malignant neoplasm of tongue; Z85.46 Personal history of malignant neoplasm of prostate; Z88.0 Allergy status to penicillin; Z77.22 Contact with and (suspected) exposure to environmental tobacco smoke (acute) (chronic); J15.9 Unspecified bacterial pneumonia; Z79.899 Other long term (current) drug therapy; Z93.1 Gastrostomy status; R05 Cough; R10.12 Left upper quadrant pain
CPT/HCPCS: 36415; 49440; 49446; 80048; 85025; 85049; 85610; 85730; 96374; 96376; 99156; 99157; A9270-GY; C1769; C1887; G0378; J1610; J2250; J2270; J3010; J3490; Q9967

== ENCOUNTER 2019-10-26 10:29 | Inpatient (IN) | payer MEDICARE ==
--- OUTSIDE RECORDS SUMMARY | 2019-10-26 10:47 | XMS REPORT | Continuity of Care Document ---
:1950 External Reference #:[id number] Author Name Tylor Perry NP (transmitted by agent of provider Yohana Farrell) Address [address], [place] [address] Care Team Providers Name Role Phone Ladonna Aly MD - Internal Care Team Information Hospital Account Liaison Medicine Problems Active Problems Provider Date Essential [...] Use Denies Drug Use Smoking Status Reviewed: 10/03/19 Patient has never smoked Exercise Type/Frequency Walks daily Allergies, Adverse Reactions, Alerts Active Allergies Reaction Severity Comments Date Penicillin 04/25/2015 Hydrochlorothiazide dizzy and flushed 10/10/2018 Medications Active Medications SIG Qnty Indications Ordering Date Provider Cefdinir take po bid for 7 14caps Ladonna 10/01/2019 300mg Capsules days Jean Paul Aly Clindamycin Palmitate 20 milliliters by 600ml Ladonna 10/01/2019 HCL mouth four times a Jean Paul Aly 75mg/5ML Solution day for 7 days Rec Amlodipine Besylate take 1 tablet by 90tabs [facility] 10/02/2018 mouth once daily Jean Paul Aly 10mg Tablets Losartan Potassium take 1 tablet by 90tabs I10 Ladonna 05/02/2017 mouth once daily Jean Paul Aly 100mg Tablets Aspir-Low 1 by mouth every Unknown 81mg Tablets day DR Génesis López 1 by mouth every Unknown Tablets day Allergy Injections once monthly in Unknown the winter season, q2wks in summer season Levothyroxine Sodium 1 tab daily Unknown 200mcg Solution Rec Levothyroxine Sodium 1 by mouth every Kian Hawk MD day 25mcg Tablets Immunizations CPT Code Status Date Vaccine Lot # [id number] Given 05/26/2015 Fluzone Vaccine 65234 Given 11/26/2014 Pneumococcal Conjugate Vaccine 13 Valent For Intramuscular Use Q2038 Given 05/17/2014 Fluzone Vaccine 35953 Given 11/30/2013 Pneumonia Vaccine 26139 Given 07/16/2013 Zoster (Zostavax) 50353 Given 06/08/2013 Influenza Virus 3Yrs & Over 87880 Given 09/28/2012 Tdap - Tetanus/Diptheria/Acellular Pertussis 33046 Given 04/13/2012 Influenza Virus 3Yrs & Over 33265 Given 05/03/2011 Influenza Virus 3Yrs & Over 70892 Given 05/27/2009 Influenza Virus 3Yrs & Over 65955 Given 06/10/2008 Pneumonia Vaccine 76576 Given 11/21/2006 Tetanus And Diptheria (Td) For Adult Use Preservative Free 14398 Given 05/19/2000 Influenza Virus 3Yrs & Over Vital Signs Date Vital Result Comment 10/03/2019 3:44pm Height 70 inches 5'10" Weight 153.12 lb Heart Rate 65 /min BP Systolic Sitting 176 mmHg BP Diastolic Sitting 80 mmHg O2 % BldC Oximetry 91 % BMI (Body Mass Index) 22.0 kg/m2 09/17/2019 10:19am Height 70 inches 5'10" Weight 156.00 lb Heart Rate 85 /min BP Systolic 169 mmHg BP Diastolic 79 mmHg BP Systolic Sitting 165 mmHg recheck BP Diastolic Sitting 79 mmHg recheck O2 % BldC Oximetry 91 % BMI (Body Mass Index) 22.4 kg/m2 Results Test Acquired Date Facility Test Result H/L Range Note Urinalysis Profile 09/26/2019 [facility] Urine Color Yellow [address] [place] [address] [phone] Urine Appearance Clear Urine Specific [place] 1.015 Normal 1.010-1.030 Urine pH 6.0 Normal 5-9 Urine Urobilinogen Negative Negative Urine Ketones Negative Negative Urine Protein Negative Negative Urine Leukocytes Negative Negative Urine Blood Negative Negative Urine Nitrite Negative Negative Urine Bilirubin Negative Negative Urine Glucose Negative Negative Influenza A & B 09/26/2019 [facility] Flu AB Disclaimer (SEE NOTE) 1 Request [address] [place] [address] [phone] Influenza A Molecular Negative Negative Influenza B Molecular Negative Negative 2 Laboratory test 09/26/2019 [facility] Lactic Acid 0.9 mmol/L Normal 0.5-2.0 3 finding [address] [place] [address] [phone] Comp Metabolic 09/26/2019 [facility] Sodium 135 mmol/L Normal 135-145 Panel [address] [place] [address] [phone] Potassium 3.8 mmol/L Normal 3.5-5.0 Chloride 100 mmol/L Low 101-111 Co2 Carbon Dioxide 30 mmol/L Normal 22-32 Anion Gap 5 mmol/L Normal 2-11 Glucose 134 mg/dL High 70-100 Blood Urea Nitrogen 20 mg/dL Normal 6-24 Creatinine 0.99 mg/dL Normal 0.67-1.17 BUN/Creatinine Ratio 20.2 High 8-20 Calcium 9.1 mg/dL Normal 8.6-10.3 Total Protein 7.3 g/dL Normal 6.4-8.9 Albumin 3.8 g/dL Normal 3.2-5.2 Globulin 3.5 g/dL Normal 2-4 Albumin/Globulin Ratio 1.1 Normal 1-3 Total Bilirubin 0.70 mg/dL Normal 0.2-1.0 Alkaline Phosphatase 59 U/L Normal 34-104 Alt 12 U/L Normal 7-52 Ast 19 U/L Normal 13-39 Egfr Non- 74.7 >60 Egfr 90.4 >60 4 Laboratory test 09/26/2019 [facility] Troponin-I 0.00 <0.03 5 finding [address] [facility] (TnI) ng/[place] [address] [phone] CBC Auto Diff 09/26/2019 [facility] White Blood 11.1 High 3.5- 10.[address] Count 10^3/[place] [address] [phone] Red Blood Count 4.40 10^6/uL Normal 4.18-5.48 Hemoglobin 13.1 g/dL Low 14.0-18.0 Hematocrit 39 % Low 42-52 Mean Corpuscular Volume 89 fL Normal 80-94 Mean Corpuscular Hemoglobin 30 pg Normal 27-31 Mean Corpuscular HGB Conc 33 g/dL Normal 31-36 Red Cell Distribution Width 14 % Normal 10-15 Platelet Count 152 10^3/uL Normal 150-450 Mean Platelet Volume 9.6 fL Normal 7.4-10.4 Abs Neutrophils 10.1 10^3/uL High 1.5-7.7 Abs Lymphocytes 0.4 10^3/uL Low 1.0-4.8 Abs Monocytes 0.6 10^3/uL Normal 0-0.8 Abs Eosinophils 0.0 10^3/uL Normal 0-0.6 Abs Basophils 0.0 10^3/uL Normal 0-0.2 Abs Nucleated RBC 0.0 10^3/uL Granulocyte % 90.6 % Lymphocyte % 3.6 % Monocyte % 5.6 % Eosinophil % 0.1 % Basophil % 0.1 % Nucleated Red Blood Cells % 0.0 Laboratory test 09/26/2019 [facility] C Reactive 36.37 mg/L High <8.[address] [place] [address] [phone] Blood Culture SEE RESULT BELOW 6 Lipid Profile 07/30/2019 [facility] Triglycerides 60 mg/dL 7 (Trig/Chol/HDL) [address] [place] [address] [phone] Cholesterol 128 mg/dL 8 HDL Cholesterol 51.0 mg/dL 9 LDL Cholesterol 65 mg/dL 10 Comp Metabolic 07/30/2019 [facility] Sodium 139 mmol/L Normal 135-145 Panel [address] [place] [address] [phone] Potassium 4.3 mmol/L Normal 3.5-5.0 Chloride 100 [...] Egfr Non- 89.1 >60 Egfr 107.8 >60 11 Laboratory test 07/24/2019 [facility] TSH (Thyroid 5.68 High 0.34-5.[address] Stim Horm) mcIU/[place] [address] [phone] Thyroglobulin 07/24/2019 [facility] Thyroglobulin <1.8 <4.0 [address] Antibody IU/[place] [address] [phone] Thyroglobulin Tumor Marker <0.1 ng/mL 12 Thyroglobulin Interpretation See Comment 13 1 Suboptimal collection technique may reduce sensitivity of test. Refer to the [facility] Test Catalog for collection information: [email or web address] As with all diagnostic procedures, the laboratory results obtained should be used in conjunction with other clinical information available to the physician, including confirmation by another method, as applicable. 2 Explosive Specialist: [id number] 3 [facility] Severe Sepsis and Septic Shock Management Bundle Measure requires all lactic acids initially measuring >2.0 mmol/L be repeated. 4 Because ethnic data is not always readily [...] 15-29 5 Kidney failure <15 (or dialysis) 5 Troponin-I testing on Plasma Separator Tubes (PST) has a known false positive rate of 0.20-0.40%. All positive troponins reflex immediately to secondary confirmatory testing. Using the [employer] DxI 800 Access Immunoassay systems, the 99th percentile upper reference limit was demonstrated to be < 0.03 ng/mL. 6 SEE RESULT BELOW Name: KETAN PEOPLES : [address]: Martha Goldstein MD Acct: [id number] Unit: [id number] AGE: 68 Location: [place] [address] Re09/27/19 Dis: 09/28/19 SEX: M Status: DIS IN SPEC: [id number] JOI: 09/26/[address] [facility] [address]: Toño Moreland MD REQ: [id number] RECD: 09/26/19 STATUS: MENA CUEVAS DR: [facility] Ladonna Aly MD _ SOURCE: BLOOD,VENO SPDESC: ORDERED: Blood Cult Procedure Result Reported Site Aerobic Culture Bottle Final 10/01/19- 2114 ML No Growth Day 5 Anaerobic Culture Bottle Final 10/01/19- 2114 ML No Growth Day 5 * ML - Main Lab . END OF REPORT DEPARTMENT OF PATHOLOGY, [address] [place] [address] Alfonzo Stevenson M.D. Director [facility] # [id number] Desirable: <150 Borderline High: 150-199 High: 200-499 Very High: >500 8 Desirable: <200 Borderline High: 200-239 High: >239 9 Low: <40 Desirable: 40-60 High: >60 10 Desirable: <100 Near Optimal: 100-129 Borderline High: 130-159 High: 160-189 Very High: >189 11 Because ethnic data is not always readily [...] 15-29 5 Kidney failure <15 (or dialysis) 12 REFERENCE VALUE Athyrotic <0.1 Intact Thyroid <=33 13 Thyroglobulin (Tg) levels must be interpreted in [...] testing methods are immunoenzymatic assays manufactured by [employer]. and performed on the [employer] DXI 800. Values obtained from different assay methods or kits may be different and cannot be used interchangeably. The results cannot be interpreted as absolute evidence for the presence or absence of malignant disease. Test Performed by: [facility] [address] [id number] Frozen Yogurt Maker: Constantino Rodriguez M.D. Ph.D.; CLIA# [id number] Procedures Date Code Description Status 07/17/2019 209718887 Diabetic Retinal Eye Exam Completed 06/04/2019 93750 repair intermediate,scalp,axillae,trunk and/or Completed extremities 06/04/2019 10360 Excise Malig Lesion 1.1-2CM Trunk/Arm/Leg Completed 04/27/2019 61121 Destruction Of Lesions 15+ Completed 04/27/2019 39941 Tangential Biopsy Of Skin, Single Lesion Completed 04/10/2019 935199779 Diabetic Retinal Eye Exam Completed 10/10/2018 827175657 Diabetic Retinal Eye Exam Completed 08/08/2018 081678632 Diabetic Retinal Eye Exam Completed 02/18/2014 20550969 Colonoscopy Completed Medical Devices Description No Information Available Encounters Type Date Location Provider Dx Diagnosis Office Visit 09/17/2019 Nutrition Services Manager Internal Ladonna I10 Essential (primary) 10:20a Medicine - Ccmob Cotton, M.D. hypertension Office Visit 04/27/2019 [facility] Dermatology Roman German MD L82.1 Other seborrheic 8:30a keratosis L57.0 Actinic keratosis L98.9 Disorder of the skin and subcutaneous tissue, unspecified Assessments Date Code Description Provider 10/03/2019 J15.9 Unspecified bacterial pneumonia Tylor Perry, KAYLEEN 09/17/2019 I10 Essential (primary) hypertension Ladonna Aly M.D. 08/06/2019 Z00.00 Encounter for general adult medical Ladonna Aly M.D. examination without abnormal findings 08/06/2019 I10 Essential (primary) hypertension Ladonna Aly M.D. 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 at [facility] Internal Medicine - [facility]10/03/2019 - Tylor Perry NPJ15.9 Unspecified bacterial pneumoniaComments:Finish the antibioticDrink through a strawEat pureed food Functional Status Description No Information Available Mental Status Description No Information Available Referrals Description No Information Available
--- OUTSIDE RECORDS SUMMARY | 2019-10-26 10:47 | XMS REPORT | Continuity of Care Document ---
:1950 External Reference #:[id number] Author Name Neftaly Julio MD Address [address] [place] [id number] Care Team Providers Name Role Phone Ladonna Aly MD - Internal Care Team Information [employer] Est[employer]ator [phone] Medicine Problems Active Problems Provider Date Oropharyngeal dysphagia Neftaly Julio MD Onset: 10/10/2019 Social History Type Date Description Comments Sex Unknown Tobacco Use Start: Unknown Patient has never smoked Tobacco Use Start: Unknown End: Unknown Patient is a former smoker Smoking Status Reviewed: 10/10/19 Patient is a former smoker Allergies, Adverse Reactions, Alerts Active Allergies Reaction Severity Comments Date Penicillin 10/10/2019 Medications Active Medications SIG Qnty Indications Ordering Provider Date Cozaar daily 90tabs Tba 01/24/2014 100mg Tablets Norvasc 1 by mouth 30tabs Tba 01/24/2014 5mg Tablets every day Synthroid Tba 01/24/2014 200mcg Tablets Aspirin daily Tba 01/24/[address] Kaminski Description No Information Available Vital Signs Date Vital Result Comment 10/10/2019 9:01am Height 70 inches 5'10" Weight 150.00 lb BP Systolic 106 mmHg BP Diastolic 65 mmHg Heart Rate 62 /min BMI (Body Mass Index) 21.5 kg/m2 Results Description No Information Available Procedures Description No Information Available Medical Devices Description No Information Available Encounters Description No Information Available Assessments Date Code Description Provider 10/10/2019 R13.13 Dysphagia, pharyngeal phase Neftaly Julio MD Plan of Treatment 10/10/2019 - Neftaly Julio, MDR13.13 Dysphagia, pharyngeal phaseComments:I had a very long extensive and anand discussion with the patient and his today. UnfortunatelyI do not have all of his records and am depending on what they tell me for some of this. It appearsthat unfortunately his only option at this time would be a feeding tube. His last ENT told him thatno further dilatations were advised and would not benefit him. It appears that his stricturing is likely above the esophagus. I discussed with him the 3 different ways of placing a feeding tube endoscopically interventional radiology and surgically. Regarding an endoscopic placement of a feeding tube I am not sure I can even pass the scope down into his stomach alone pull a PEG tube and its large bumper through that area. He did have a barium swallow approximate 10 months ago which he states looked very bad. Rather than putting him at increased risk in repeating it the family is going to try to get these results from the outside institution. I think the only way to get a feeding tube in him would be either via interventional radiology or surgically placed. I am going to ask my interventional radiologist colleague Dr. Alfaro to evaluate this patient to see whether or not whether or not general surgery would be the way to go. Functional Status Description No Information Available Mental Status Description No Information Available Referrals Description No Information Available
[2019-10-26 13:06] LABS: ABS Eosinophils 0.1 10^3/ul (0-0.6); ABS Lymphocytes 0.7 10^3/ul (1.0-4.8); ABS Monocytes 0.4 10^3/ul (0-0.8); Eosinophil % 1.8 %; Hematocrit 44 % (42-52); Hemoglobin 14.9 g/dL (14.0-18.0); Lymphocyte % 15.6 %; Mean Corpuscular HGB Conc 34 g/dL (31-36); Mean Corpuscular Hemoglobin 30 pg (27-31); Mean Corpuscular Volume 89 fL (80-94); Mean Platelet Volume 9.4 fL (7.4-10.4); Nucleated Red Blood Cells % 0.1; Platelet Count 149 10^3/uL (150-450); Red Cell Distribution Width 15 % (10-15); White Blood Count 4.2 10^3/uL (3.5-10.8)
[2019-10-26 13:35] LABS: BUN/Creatinine Ratio 25.3 (8-20); Calcium 9.6 mg/dL (8.6-10.3); EGFR African American 99.4 (>60); EGFR Non-African American 82.1 (>60); Globulin 3.9 g/dL (2-4); Potassium 4.3 mmol/L (3.5-5.0); Total Bilirubin 0.7 mg/dL (0.2-1.0); Total Protein 7.9 g/dL (6.4-8.9)
[2019-10-26] MEDS ORDERED: Iohexol 300* (CONTRAST) 10 ML SDV IV ONE (17:10)
[2019-10-26] MEDS ORDERED: Acetaminophen TAB* 325 MG PO PRN (17:40)
[2019-10-26] MEDS ORDERED: Morphine INJ* 2 MG/ML 1 ML SYRINGE (TWO MG - NEW SYRINGE VERSION) IV PRN (17:40)
[2019-10-26 17:42] LABS: C Reactive Protein 16.46 mg/L (<8.01)
--- NOTE | 2019-10-26 17:51 | ED ---
GI/ HPI - HPI Summary HPI Summary: This patient is a 69yo M with a hx of tongue CA with radiation, subsequent episodes of aspiration PNA and recent PEG tube placement 3 days ago presenting to the ED with CC of cough. States has been coughing since discharge from hospital 1.5 days ago and cough is approx 1 hour following his tube feeds ( jevity). His PEG tube was placed 3 days ago d/t persistent aspiration PNA and he has been taking PO ensure for several weeks to months leading up to this surgery. He was seen by Dr. Julio and Dr. Villarreal (placed PEG). Following the PEG tube placement, pt had discomfort around the site, but denied any other concerns. He was stable at discharge 2 days ago, although he was noted to be hypoxic at times with cough, dipping down to 80's on RA and requiring O2. At discharge, his sats recorded at 90%+ at rest. He does not require O2 at home. Denies smoking hx, but endorses second hand smoke. No alcohol or drug use. Pt was to follow up with Dr. Villarreal but did not have a date/time. At this time on arrival, he is concerned over weight loss, chills, cold hands and feet, coughing up his nutrition s/p tube feeds and failure to thrive. Pain remains at site, but no drainage or issues with tube/occlusions. Continues to cough up mucous as well, this is his baseline. Endorses "chalky" taste in his mouth from coughing up his jevity. Feels he may be losing up to 50 % of his intake d/t cough. No emesis. Endorses sitting upright at all times when taking and after taking his jevity. No feeds 3 hours prior to bedtime/ lying semi-supine. States when attempting to lie flat, he has worsening cough of his jevity despite several hours since last tube intake. 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 No fever, sweats, chills. - History of Current Complaint Chief Complaint: EDNauseaVomitDiarrh Time Seen by Provider: 10/26/19 11:56 Stated Complaint: VOMITING Hx Obtained From: Patient Onset/Duration: Started Days Ago Timing: Constant Severity: Moderate Current Severity: Moderate Pain Intensity: 0 - Additional Pertinent History Primary Care Physician: DORCAS - Allergy/Home Medications Allergies/Adverse Reactions: Allergies Allergy/AdvReac Type Severity Reaction Status Date / Time hydrochlorothiazide Allergy Dizziness Verified 10/26/19 10:34 Penicillins Allergy Unknown Verified 10/26/19 10:34 Reaction Details Home Medications: Home Medications Aspirin 81 mg CHEW TAB* 81 mg PEG TUBE 0600 08/06/17 [History Confirmed 10/26/19 ] Levothyroxine TAB* [Synthroid 100 MCG TAB*] 200 mcg PEG TUBE 0500 09/26/19 [ History Confirmed 10/26/19] Levothyroxine TAB* [Synthroid 25 MCG TAB*] 25 mcg PEG TUBE 0500 09/26/19 [ History Confirmed 10/26/19] amLODIPine TAB* [Norvasc 5 mg TAB*] 10 mg PEG TUBE 0600 09/26/19 [History Confirmed 10/26/19] Losartan TAB* [Cozaar TAB*] 100 mg PEG TUBE 0600 10/26/19 [History Confirmed 02/08] Multivit-Min/FA/Lycopen/Lutein [Centrum Silver Men Tablet] 1 tab PEG TUBE DAILY 10/26/19 [History Confirmed 10/26/19] PMH/Surg Hx/FS Hx/Imm Hx Previously Healthy: No - tongue CA with radiation Endocrine/Hematology History: Denies: Hx Diabetes, Hx Thyroid Disease Cardiovascular History: Reports: Hx Hypertension - ON MEDS Denies: Other Cardiovascular Problems/Disorders Respiratory History: Reports: Other Respiratory Problems/Disorders - HX THROAT CANCER Denies: Hx Asthma, Hx Chronic Obstructive Pulmonary Disease (COPD) GI History: Denies: Hx Ulcer Sensory History: Reports: Hx Contacts or Glasses - Reading glasses, Hx Hearing Aid - will plan to take home to be charged on admission Opthamlomology History: Reports: Hx Contacts or Glasses - Reading glasses - Cancer History Cancer Type, Location and Year: thyroid cancer. squamous cell carcinoma of tongue. prostate cancer - Surgical History Surgery Procedure, Year, and Place: thyroidectomy. radical neck. inguinal hgernia repair Infectious Disease History: No Infectious Disease History: Denies: Hx Clostridium Difficile, Hx Hepatitis, Hx Human Immunodeficiency Virus (HIV), Hx of Known/Suspected MRSA, Hx Shingles, Hx Tuberculosis, Hx Known/ Suspected VRE, Hx Known/Suspected VRSA, History Other Infectious Disease, Traveled Outside the [place] in Last 30 Days - Family History Known Family History: Positive: Cardiac Disease - Social History Occupation: Unemployed Lives: With Family Alcohol Use: None Hx Substance Use: No Substance Use Type: Reports: None Hx Tobacco Use: No Smoking Status (MU): Never Smoked Tobacco Have You Smoked in the Last Year: No Review of Systems Positive: Chills. Negative: Fever, Fatigue, Skin Diaphoresis Negative: Palpitations, Chest Pain Positive: Cough. Negative: Shortness Of Breath Positive: Nausea - s/p nutrition administration. Negative: Abdominal Pain, Vomiting, Diarrhea Negative: Arthralgia Negative: Rash All Other Systems Reviewed And Are Negative: Yes Physical Exam Triage Information Reviewed: Yes Vital Signs On Initial Exam: Initial Vitals Temp Pulse Resp BP Pulse Ox 97.4 F 65 16 160/90 93 10/26/19 10:31 10/26/19 10:31 10/26/19 10:31 10/26/19 10:31 10/26/19 10:31 Vital Signs Reviewed: Yes Appearance: Positive: Well-Appearing, Thin Skin: Positive: Skin Color Reflects Adequate Perfusion Neck: Positive: Supple. Negative: No Lymphadenopathy Respiratory/Lung Sounds: Positive: Breath Sounds Present Cardiovascular: Positive: Pulses are Symmetrical in both Upper and Lower Extremities Abdomen Description: Positive: Nontender, No Organomegaly, Soft. Negative: CVA Tenderness (R), CVA Tenderness (L), Distended, Guarding Bowel Sounds: Positive: Present Neurological: Positive: Speech Normal Psychiatric: Positive: Normal Procedures - Sedation Patient Received Moderate/Deep Sedation with Procedure: No Diagnostics - Vital Signs Vital Signs Temp Pulse Resp BP Pulse Ox 10/26/19 16:44 62 159/89 92 10/26/19 16:00 60 92 10/26/19 15:34 67 175/100 93 10/26/19 15:19 65 157/90 94 10/26/19 15:04 90 10/26/19 15:00 60 93 10/26/19 14:34 58 133/76 93 10/26/19 14:22 60 176/88 91 10/26/19 14:21 65 183/96 10/26/19 14:00 62 93 10/26/19 13:34 154/91 10/26/19 13:00 58 93 10/26/19 12:34 54 169/87 95 10/26/19 12:28 59 93 10/26/19 10:31 97.4 F 65 16 160/90 93 - Laboratory Lab Results: Lab Results 10/26/19 10/26/19 Range/Units 12:57 12:57 WBC 4.2 (3.5-10.8) 10^3/uL RBC 4.90 (4.18-5.48) 10^6 /uL Hgb 14.9 (14.0-18.0) g/dL Hct 44 (42-52) % MCV 89 (80-94) fL MCH 30 (27-31) pg MCHC 34 (31-36) g/dL RDW 15 (10-15) % Plt Count 149 L (150-450) 10^3/uL MPV 9.4 (7.4-10.4) fL Neut % (Auto) 73.0 % Lymph % (Auto) 15.6 % Glenn % (Auto) 8.7 % Eos % (Auto) 1.8 % Baso % (Auto) 0.9 % Absolute Neuts (auto) 3.0 (1.5-7.7) 10^3/ul Absolute Lymphs (auto) 0.7 L (1.0-4.8) 10^3/ul Absolute Monos (auto) 0.4 (0-0.8) 10^3/ul Absolute Eos (auto) 0.1 (0-0.6) 10^3/ul Absolute Basos (auto) 0.0 (0-0.2) 10^3/ul Absolute Nucleated RBC 0.0 10^3/ul Nucleated RBC % 0.1 Sodium 135 (135-145) mmol/L Potassium 4.3 (3.5-5.0) mmol/L Chloride 98 L (101-111) mmol/L Carbon Dioxide 32 (22-32) mmol/L Anion Gap 5 (2-11) mmol/L BUN 23 (6-24) mg/dL Creatinine 0.91 (0.67-1.17) mg/dL Est GFR ( Amer) 99.4 (>60) Est GFR (Non-Af Amer) 82.1 (>60) BUN/Creatinine Ratio 25.3 H (8-20) Glucose 97 (70-100) mg/dL Calcium 9.6 (8.6-10.3) mg/dL Total Bilirubin 0.70 (0.2-1.0) mg/dL AST 28 (13-39) U/L ALT 14 (7-52) U/L Alkaline Phosphatase 63 (34-104) U/L C-Reactive Protein 16.46 H (<8.01) mg/L Total Protein 7.9 (6.4-8.9) g/dL Albumin 4.0 (3.2-5.2) g/dL Globulin 3.9 (2-4) g/dL Albumin/Globulin Ratio 1.0 (1-3) Result Diagrams: 10/26/19 12:57 10/26/19 12:57 Lab Statement: Any lab studies that have been ordered have been reviewed, and results considered in the medical decision making process. GIGU Course/Dx - Course Course Of Treatment: On arrival to the ED, the patient appears well. VS stable. Afebrile. Continues to cough with mucous production, but no emesis. Per patient, states he feels very cold and shivering. Concerned with weight loss. Lungs CTA. RRR. PEG site CDI with no evidence of obstruction. Bandage surrounding not wet. Pt endorsing pain at site, but no pain diffusely throughout the abd. + BS throughout with tenderness only surrounding PEG. No erythema. CXR and abd flat plate reveals no acute processes with PEG tube in place. Pt very concerned with his condition and states concern over DC home. Ambulated patient and noted 87% on RA. Called GI, Dr. Gonzalez who referred to Dr. Julio or Dr. Villarreal for assistance/advice. Discussed with Dr. Goldstein and Dr. Villarreal regarding pts condition. I am concerned pt may not be receiving adequate nutrition through PEG if continues to cough up fluid. Also concerned with aspiration PNA given present condition and hx. Will admit for further evaluation with Dr. Villarreal consulting. Per Dr. Villarreal, CT abd/pelvis with contrast through PEG just prior to scan. This pending. Discussed again plan with pt and pt who are agreeable to service. Remains stable at rest. - Diagnoses Differential Diagnoses - Male: Other - gastroparesis, GERD, ileus, PEG tube dysfunction, dysmotility, aspiration Provider Diagnoses: Aspiration into airway - Physician Notifications Discussed Care Of Patient With: Martha Goldstein Instructed by Provider To: MD Will See In ED Discharge ED - Sign-Out/Discharge Documenting (check all that apply): Patient Departure - Discharge Plan Condition: Fair Disposition: ADMITTED TO [facility] Referrals: Ladonna Aly MD [Primary Care Provider] - - Billing Disposition and Condition Condition: FAIR Disposition: Admitted to [facility]
--- NOTE | 2019-10-26 19:47 | CONSULT ---
Consult Consult: Date of service: 02/09/2020 Reason for consultation: The patient is regurgitating gastrostomy tube feeds 3 days post gastrostomy tube placement Requesting service: Emergency department, Nelda ANDRADE HPI: This patient is a 69yo M with a hx of tongue CA with radiation, subsequent episodes of aspiration PNA and recent gastrostomy tube placement 3 days ago who presented to to the ED with cough and aspiration of tube feeds. States has been coughing since discharge from hospital 1.5 days. The coughing is worse following Jevity tube feedings. Following the gastrostomy tube tube placement, pt had discomfort around the site, but no severe pain. Following placement of the gastrostomy tube as an inpatient on 10/23/2019, the patient had episodes of coughing and desaturation but this reportedly resolved after coughing up a mucous plug. At discharge his sats recorded at 90%+ at rest. He does not require O2 at home. He is concerned over weight loss, chills, cold hands and feet, coughing up his nutrition s/p tube feeds and failure to thrive. The patient reports having a small bowel movement 2 days earlier and has occasionally been passing gas but feels like he needs to pass gas. Endorses "chalky" taste in his mouth from coughing up his jevity. Feels he may be losing up to 50% of his intake d/t cough. No emesis. Endorses sitting upright at all times when talking and after taking his jevity. No feeds 3 hours prior to bedtime/lying semi-supine. States when attempting to lie flat, he has worsening cough of his jevity despite several hours since last tube intake. 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 No fever, sweats, chills. Allergies: Hydrochlorothiazide and penicillin Home Medications: Aspirin 81 mg CHEW TAB* 81 mg PEG TUBE 0608/06/17 Levothyroxine TAB* [Synthroid 100 MCG TAB*] 200 mcg PEG TUBE 49909/26/19 Levothyroxine TAB* [Synthroid 25 MCG TAB*] 25 mcg PEG TUBE 0 09/26/19 amLODIPine TAB* [Norvasc 5 mg TAB*] 10 mg PEG TUBE 0609/26/19 Losartan TAB* [Cozaar TAB*] 100 mg PEG TUBE 0600 10/26/19 Multivit-Min/FA/Lycopen/Lutein [Centrum Silver Men Tablet] 1 tab PEG TUBE DAILY 10/26/19 PMH: Tongue CA with radiation Thyroid Disease Hypertension (ON MEDS) HX THROAT CANCER prostate cancer Surgical History: thyroidectomy. radical neck. inguinal hgernia repair Family History: Noncontributor Social History: Retired. Lives with spouse. Denies current smoking, alcohol or drugs. Review of Systems Positive: Chills. Negative: Fever, Fatigue, Skin Diaphoresis Negative: Palpitations, Chest Pain Positive: Cough. Negative: Shortness Of Breath Positive: Nausea - s/p nutrition administration. Negative: Abdominal Pain, Vomiting, Diarrhea Negative: Arthralgia Negative: Rash Physical exam: Selected Entries 10/26/19 19:33 Temperature 97.9 F Temperature Temporal Artery Source Scan Pulse Rate 56 Respiratory 18 Rate Blood Pressure 140/78 (mmHg) O2 Sat by Pulse 90 Oximetry Patient on Room Yes Air NAD, AAO x 3 Sitting up in bed, conversant with at bedside The gastrostomy tube is appropriately positioned surrounded by 3 retention tacks The area around the tube is soft. There is no significant tenderness with palpation. The patient reports tenderness when compressing the left mid abdomen. Negative rebound or guarding + Occasional bowel sounds Relevant imagin10/26/2019 KUB demonstrated gas throughout the length of the colon and throughout the abdomen. 10/26/2019: CT of the abdomen and pelvis was acquired after injecting contrast into the gastrostomy tube. I have reviewed these images myself and the gastrostomy tube as well as the retention tacks appear to be appropriately positioned in the gastric antrum. The contrast injected into the feeding tube is seen in the dependent portion of the stomach. There is no leakage of contrast. There is no evidence of fistulous communication to the colon or other bowel. The colon is mildly enlarged and gas-filled but this extends as far as the rectum. There is no focal obstruction. Relevant labs: Laboratory Tests 10/26/19 10/26/19 12:57 12:57 WBC 4.2 RBC 4.90 Hgb 14.9 Hct 44 Plt Count 149 L Alkaline Phosphatase 63 Summary: 69-year-old man with a complicated oncologic history and esophageal stricture now with what appears to be an ileus 3 days status post gastrostomy tube placement. The CT appearance is not consistent with a focal bowel obstruction. Though the gastrostomy tube tract is directly adjacent to the transverse colon, there is no evidence that the transverse colon was directly penetrated. Plan/recommendations: 1. Bowel rest. 2. If it is deemed necessary, the gastrostomy tube has a side vent to allow for venting of the GI system while waiting for bowel motility to recur. 3. Potentially a promotility agent may be beneficial such as Reglan but I would favor input from the hospitalist and/or gastroenterology. 4. I do not favor converting to a gastrojejunostomy tube at this time because; 1. I do not think it would be particularly effective in addressing what appears to me to be an ileus and, 2. It is not advisable to manipulate a gastrostomy tube so soon after placement as the tract has not formed. In addition to discussing my assessment and recommendations with the patient and his in the emergency department, I have also had conversations with Carmelita Keenan NP in person and Dr. Julio over the telephone.
[2019-10-26] MEDS: D5NS 0.9% 1000 ML BAG* 1,000 ML IV SCH (20:27)
--- NOTE | 2019-10-26 20:47 | HP ---
CC: Dr. Aly; Dr. Villarreal * HISTORY AND PHYSICAL: DATE OF ADMISSION: 10/26/19 PRIMARY CARE PROVIDER: Dr. Aly. CHIEF COMPLAINT: "Coughing up tube feeds." HISTORY OF PRESENT ILLNESS: Kendall Mendoza is a 69-year-old male with a history of throat cancer, status post radical neck dissection and subsequent development of dysphagia who had a PEG tube placed by Dr. Villarreal on 10/24/19 for dysphagia problems. He was overnight in the hospital and discharged on 12/09. He was briefly hypoxemic, but that resolved. After his discharge from the hospital, the patient stated that he has rather severe left upper quadrant pain. He is coughing up his tube feeds. He had a very small bowel movement yesterday, but nothing today. He complains of no nausea. He is basically not tolerating his tube feeds. He is going to be placed for inpatient admission. It is possible that the patient will require a J-tube placement. On exam, there is also possibility of acute ileus. PAST MEDICAL HISTORY: 1. History of tongue cancer, status post chemo and radiation and radical neck dissection in 2006. 2. Thyroid cancer, status post total thyroidectomy. 3. Hypertension. 4. Hypothyroidism. 5. Prostate cancer. 6. History of esophageal dilatation. 7. Thyroidectomy. 8. Radical neck dissection. 9. Bilateral inguinal hernia repairs. 10. PEG tube placement on 10/24/19. MEDICATIONS: Medications at home include: 1. Amlodipine 10 mg daily. 2. Losartan 100 mg daily. 3. Levothyroxine 225 mcg daily. 4. Aspirin 81 mg daily. ALLERGIES: PENICILLIN, HYDROCHLOROTHIAZIDE. FAMILY HISTORY: Mother at the age of 78 of lung cancer. Father at the age of 86 of dementia. SOCIAL HISTORY: The patient has history of smoking most of his life. He denies any alcohol or drug use. He is to his , Rosaline, who is his healthcare proxy. REVIEW OF SYSTEMS: Please see history of present illness. All the remaining 12 systems were reviewed with the patient and was otherwise negative. PHYSICAL EXAMINATION GENERAL: The patient is is a pleasant 69-year-old male who is rather cachectic appearing. The patient is in no acute distress. He is alert and oriented x3. VITAL SIGNS: Respiratory rate 16 breaths per minute, oxygen saturation 92% on room air, heart rate of 62, blood pressure of 129/89, temperature of 99.4. HEENT: Head is atraumatic, normocephalic. Eyes: Pupils are equal and reactive to light and accommodation. Oropharynx clear. Mucosa dry. NECK: Status post radical neck dissection and radiation with very firm skin changes after radiation. RESPIRATORY: Clear to auscultation bilaterally. CARDIOVASCULAR: Regular rate and rhythm. No murmur. ABDOMEN: Soft, tender in the left upper quadrant with voluntary guarding, no rebound. Bowel sounds are high pitched and scattered throughout that are hypoactive. PEG tube is in place with no evidence of skin infection or leaking of tube feeds. EXTREMITIES: There is no edema. Pulses are +2 bilaterally. There is no clubbing or cyanosis. NEUROLOGIC: Speech clear. Cranial nerves II through XII grossly intact. Motor strength is 5/5 bilaterally. SKIN: On evaluation of the skin, no ecchymotic area or rashes noted. LABORATORY DATA: White blood cell count 4.2, hemoglobin 14.9, hematocrit 44, and platelets 149. Sodium 135, potassium 4.3, chloride 98, carbon dioxide 32, BUN 22, creatinine of 0.91. C-reactive protein was 16.4. CT of the abdomen and pelvis pending at the time of dictation. Abdominal x-ray, impression: "Lines and tubes as stated above. Nonspecific bowel gas pattern." ASSESSMENT AND PLAN: 1. The patient is status post PEG tube placement and currently he is regurgitating his tube feeds. At this point, by physical exam, he appears to have possibly ileus related to his PEG tube placement just 2 days ago. We will await the patient's CT report to evaluate it further. For the time being, we will place the patient n.p.o. apart from meds with small bolus of water through PEG tube. I discussed the case with Dr. Villarreal, who will follow up on the patient's CAT scan. 2. For DVT prophylaxis, the patient will be placed on heparin subcutaneously. 3. The patient's code status is full. His surrogate is his . TIME SPENT: Approximately 55 minutes was spent on admission of this patient. More than half of that spent face to face with the patient, during the interview and physical exam. [id number]/[facility] #: [id number] [facility]
[2019-10-26] MEDS: Heparin VIAL(*) 5000 UNITS/ML VIAL (FIVE THOUSAND) SUBCUT SCH (21:13)
[2019-10-27] MEDS ORDERED: Levothyroxine TAB* 25 MCG TAB PEG TUBE SCH (05:00)
[2019-10-27] MEDS ORDERED: Levothyroxine TAB* 100 MCG TAB PEG TUBE SCH (05:00)
[2019-10-27] MEDS ORDERED: Levothyroxine INJ* 100 MCG/5 ML VIAL IV SCH (06:00)
[2019-10-27] MEDS: Heparin VIAL(*) 5000 UNITS/ML VIAL (FIVE THOUSAND) SUBCUT SCH ×3 (06:11→21:37)
[2019-10-27] MEDS: D5NS 0.9% 1000 ML BAG* 1,000 ML IV SCH ×2 (06:32→16:39)
--- NOTE | 2019-10-27 07:32 | PN ---
Subjective Date of Service: 10/27/19 Interval History: HD2 on 10/26 69M PMH SCC tongue/neck s/p radical dissection/chemo in 2006 c/b late esophageal strictures and dysphagia with recent PEG tube placement on 10/24/19, surgical hypothyroidism, HTN, HLD, prostate Ca who presented aspirating tube feeds, now POD#3 from PEG placement from presumed ileus. Overnight, no acute events, VSS-mild HTN on 1 reading, asymptomatic Labs: Mild thrombocytopenia, stable This morning, seen in bed without any complaints other than his hands and feet being cold, concerned he is not absorbing levothryoxine. Describes some flatus over the course of the night no new BM since yesterday, pain improving. No c/o CP SOB MSK or complaints. Objective Active Medications: Acetaminophen (Tylenol Tab*) 650 mg PO Q4H PRN PRN Reason: PAIN-MILD/TEMP >/= 100.4 Heparin Sodium (Porcine) (Heparin Vial(*)) 5,000 units SUBCUT Q8HR [facility] Last Admin: 10/27/19 06:11 Dose: 5,000 units Dextrose/Sodium Chloride (D5ns 0.9% 1000 Ml Bag*) 1,000 mls @ 100 mls/hr IV PER RATE [facility] Last Admin: 10/27/19 06:32 Dose: 100 mls/hr Levothyroxine Sodium (Synthroid Inj*) 112.5 mcg IV DAILY@0600 [facility] Last Admin: 10/27/19 06:10 Dose: 112.5 mcg Morphine Sulfate (Morphine Inj (Syringe))*) 2 mg IV Q4H PRN PRN Reason: PAIN - SEVERE Vital Signs - 8 hr 10/27/19 04:01 Temperature 97.7 F Pulse Rate 56 Respiratory 18 Rate Blood Pressure 104/60 (mmHg) O2 Sat by Pulse 94 Oximetry Oxygen Devices in Use Now: None Appearance: Pleasant man in NAD, thin Eyes: No Scleral Icterus, PERRLA Ears/Nose/Mouth/Throat: NL Teeth, Lips, Gums, Mucous Membranes Moist Neck: NL Appearance and Movements; NL JVP, Trachea Midline Respiratory: Symmetrical Chest Expansion and Respiratory Effort, Clear to Auscultation Cardiovascular: NL Sounds; No Murmurs; No JVD, RRR Abdominal: - - Soft, occasional bowel sounds, mild distention in LLQ and RLQ non tender, PEG site clean dry intact with well healing connection sites, no sig TTP Extremities: No Edema Skin: No Rash or Ulcers Neurological: Alert and Oriented x 3 Result Diagrams: 10/26/19 12:57 10/26/19 12:57 Additional Lab and Data: Microbiology and Other Data: Microbiology 10/26/19 12:45 Gram Stain - Final Sputum Diagnostic Imaging: CT A/P 10/24 IMPRESSION: 1. Peg tube balloon inflated in the stomach and appears unremarkable. 2. Moderate gaseous distension of the colon without small bowel obstruction. 3. Small amount of abnormal free fluid in the pelvis, without abscess. 4. No other acute disease seen. As above. From Dr. Villarreal The contrast injected into the feeding tube is seen in the dependent portion of the stomach. There is no leakage of contrast. There is no evidence of fistulous communication to the colon or other bowel. The colon is mildly enlarged and gas-filled but this extends as far as the rectum. There is no focal obstruction. CXR 10/24 IMPRESSION: HYPERINFLATION, CONSISTENT WITH COPD. NO ACTIVE CARDIOPULMONARY DISEASE. AXR 10/24: IMPRESSION: LINES AND TUBES ABOVE. NONSPECIFIC BOWEL GAS PATTERN. Assess/Plan/Problems-Billing Assessment: 69M PMH SCC tongue/neck s/p radical dissection/chemo in 2006 c/b late esophageal strictures and dysphagia with recent PEG tube placement on 10/24/19, surgical hypothyroidism, HTN, HLD, prostate Ca who presented aspirating tube feeds, now POD#3 from PEG placement from presumed ileus. - Patient Problems (1) PEG tube malfunction Current Visit: Yes Status: Acute Code(s): K94.23 - GASTROSTOMY MALFUNCTION SNOMED Code(s): 630404919 Comment: -Seems to be a post operative ileus, start reglan 5 q 6 x 4 doses. (2) Ileus Current Visit: Yes Status: Acute Code(s): K56.7 - ILEUS, UNSPECIFIED SNOMED Code(s): 322891133 Comment: -as per above, continue gentle IVF, bowel rest (3) Failure to thrive Current Visit: Yes Status: Acute Code(s): ANM8413 - SNOMED Code(s): 25201713 Comment: -On D5NS, will stop when he is able to resume trickle feeds -At this time no clear indication for TPN as ileus will hopefully resolve, if no sig improvement may consider (4) H/O tongue cancer Current Visit: No Status: Acute Comment: -With above complications, no active cancer (5) Hypertension Current Visit: No Status: Acute Code(s): I10 - ESSENTIAL (PRIMARY) HYPERTENSION SNOMED Code(s): 07121818 Comment: -Hold antiHTN for now, if BP >150 will resume agent (6) Hypothyroidism Current Visit: No Status: Acute Code(s): E03.9 - HYPOTHYROIDISM, UNSPECIFIED SNOMED Code(s): 80425504 Comment: -continue levothyroxine, currently given IV (7) Prostate cancer Current Visit: No Status: Acute Code(s): C61 - MALIGNANT NEOPLASM OF PROSTATE SNOMED Code(s): 972498729 Comment: -surveillance -continue outpatient follow up (8) DVT prophylaxis Current Visit: No Status: Acute Code(s): Z29.9 - ENCOUNTER FOR PROPHYLACTIC MEASURES, UNSPECIFIED SNOMED Code(s): 526016967 Comment: -[facility] (9) Full code status Current Visit: No Status: Acute Code(s): Z78.9 - OTHER SPECIFIED HEALTH STATUS SNOMED Code(s): 786242505 Status and Disposition: Inpatient PIV no fox Diet-NPO Case Mgmt: No need for PT OT at this time
[2019-10-27] MEDS: Metoclopramide IV* 5 MG/ML 2 ML VIAL IV SCH ×3 (08:25→21:37)
[2019-10-27] MEDS: hydrALAZINE IV* 20 MG/ML VIAL IV SLOW PU PRN (15:59)
--- NOTE | 2019-10-27 16:18 | PN ---
Hospitalist Progress Note Date of Service: 10/27/19 Spoke with patient about days progress, no BM, not walking much is passing flatus Encouraged walking and will start drip tube feeds Sun 3/8 AM around breakfast at 5cc/hr, if tolerates can increase q1 hrs by 5cc until tolerating goal of 30cc. If able to tolerate 30cc per hour will change to lower dose bolus feeds to determine if he can self feed. Continue reglan at this time.
[2019-10-28] MEDS: D5NS 0.9% 1000 ML BAG* 1,000 ML IV SCH ×2 (03:42→14:58)
[2019-10-28] MEDS: Metoclopramide IV* 5 MG/ML 2 ML VIAL IV SCH (04:24)
[2019-10-28] MEDS: Heparin VIAL(*) 5000 UNITS/ML VIAL (FIVE THOUSAND) SUBCUT SCH ×3 (05:54→22:21)
[2019-10-28] MEDS: Levothyroxine INJ* 100 MCG/5 ML VIAL IV SCH (05:55)
[2019-10-28 06:22] LABS: BUN/Creatinine Ratio 12.5 (8-20); Calcium 8.4 mg/dL (8.6-10.3); EGFR African American 130.2 (>60); EGFR Non-African American 107.6 (>60); Potassium 3.4 mmol/L (3.5-5.0)
--- NOTE | 2019-10-28 08:06 | PN ---
Subjective Date of Service: 10/28/19 Interval History: HD3 on 10/27 69M PMH SCC tongue/neck s/p radical dissection/chemo/radiation in 2006 c/b late esophageal strictures and dysphagia with recent PEG tube placement on 10/24/19, surgical hypothyroidism, HTN, HLD, prostate Ca who presented aspirating tube feeds, now POD#5 from PEG placement from presumed ileus. Overnight, no acute events, VSS-mild HTN on 1 reading, asymptomatic Labs: Mild hypoK This morning, continues to cough and while coughing appears to be coughing up Jevity (despite not starting tube feeds). He reports he has been walking and has sig flatus, has been having the urge to move bowel. No other pain or discomfort, no shortness of breath. Objective Active Medications: Acetaminophen (Tylenol Tab*) 650 mg PO Q4H PRN PRN Reason: PAIN-MILD/TEMP >/= 100.4 Heparin Sodium (Porcine) (Heparin Vial(*)) 5,000 units SUBCUT Q8HR [facility] Last Admin: 10/28/19 05:54 Dose: 5,000 units Hydralazine HCl (Apresoline Iv*) 5 mg IV SLOW PU Q6H PRN PRN Reason: SBP > 160 Last Admin: 10/27/19 15:59 Dose: 5 mg Dextrose/Sodium Chloride (D5ns 0.9% 1000 Ml Bag*) 1,000 mls @ 100 mls/hr IV PER RATE [facility] Last Admin: 10/28/19 03:42 Dose: 100 mls/hr Levothyroxine Sodium (Synthroid Inj*) 75 mcg IV DAILY@0600 [facility] Last Admin: 10/28/19 05:55 Dose: 75 mcg Morphine Sulfate (Morphine Inj (Syringe))*) 2 mg IV Q4H PRN PRN Reason: PAIN - SEVERE Vital Signs - 8 hr 10/28/19 10/28/19 03:07 07:31 Temperature 98.1 F 98.7 F Pulse Rate 51 56 Respiratory 18 18 Rate Blood Pressure 119/56 161/72 (mmHg) O2 Sat by Pulse 92 93 Oximetry Oxygen Devices in Use Now: None Appearance: Very pleasant thin man in NAD Eyes: No Scleral Icterus, PERRLA Ears/Nose/Mouth/Throat: Clear Oropharnyx, Mucous Membranes Moist, - - While coughing coughs up thin jevity Respiratory: Symmetrical Chest Expansion and Respiratory Effort, Clear to Auscultation Cardiovascular: NL Sounds; No Murmurs; No JVD, RRR Abdominal: - - Soft mild distention +4 BS in all 4 quadrant, PEG well healed, minimal TTP Extremities: No Edema Skin: No Rash or Ulcers Neurological: Alert and Oriented x 3 - Nutrition: Malnutrition Diagnosis/Plan Malnutrition Assessment by Registered Dietitian: Malnutrition Assessment Clinical Characteristics Acute,Severe Malnutrition Assessment: Muscle Wasting - Pectoral/deltoid (moderate) Criteria Inadequate 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 GI Related - Recommend continuing prokinetic given ileus; will monitor GI s/sx for tolerance to TF Malnutrition Assessment: Goals 1) Recommend advancing TF as tolerated 2) Pt will tolerate TF w/o development of GI s/ sx or aspiration 3) Adequate enteral infusion to replete lean body mass, support wt gain as desired and hydration status 4) Maintain fluid/electrolyte balance w/ adequate enteral infusion 5) Maintain bowel regularity w/ adequate enteral infusion w/o development of diarrhea/ constipation Result Diagrams: 10/26/19 12:57 10/28/19 05:34 Additional Lab and Data: Microbiology and Other Data: Microbiology 10/26/19 12:45 Gram Stain - Final Sputum Diagnostic Imaging: CT A/P 10/24 IMPRESSION: 1. Peg tube balloon inflated in the stomach and appears unremarkable. 2. Moderate gaseous distension of the colon without small bowel obstruction. 3. Small amount of abnormal free fluid in the pelvis, without abscess. 4. No other acute disease seen. As above. From Dr. Villarreal The contrast injected into the feeding tube is seen in the dependent portion of the stomach. There is no leakage of contrast. There is no evidence of fistulous communication to the colon or other bowel. The colon is mildly enlarged and gas-filled but this extends as far as the rectum. There is no focal obstruction. CXR 10/24 IMPRESSION: HYPERINFLATION, CONSISTENT WITH COPD. NO ACTIVE CARDIOPULMONARY DISEASE. AXR 10/24: IMPRESSION: LINES AND TUBES ABOVE. NONSPECIFIC BOWEL GAS PATTERN. Assess/Plan/Problems-Billing Assessment: 69M PMH SCC tongue/neck s/p radical dissection/radiation/chemo in 2006 c/b late esophageal strictures and dysphagia with recent PEG tube placement on 10/24/19, surgical hypothyroidism, HTN, HLD, prostate Ca who presented aspirating tube feeds, now POD#5 from PEG placement from presumed ileus. Since initiating bowel rest, pt continues to cough up what appears to be thin tube feeds despite ileus distal to PEG tube that continues to improve. While this may all represent distal ileus and gastroparesis with GERD, reflux and some regurgitation of tube feeds, pt is at risk for tracheo-esophageal fistula given extensive radiation hx and seems reasonable to explore this option with modified barium and esophagram on 10/28. - Patient Problems (1) PEG tube malfunction Current Visit: Yes Status: Acute Code(s): K94.23 - GASTROSTOMY MALFUNCTION SNOMED Code(s): 293959349 Comment: - Seems to be a post operative ileus, improving today with ambulation and active passing flatus - Modified barium, possible esophagram to r/o fistula given he continues to "cough" tube feeds, witnessed by family, nursing, this provider. (2) Ileus Current Visit: Yes Status: Acute Code(s): K56.7 - ILEUS, UNSPECIFIED SNOMED Code(s): 209964255 Comment: - as per above, continue gentle IVF - Holding reglan after x4 doses - Starting 5cc/hr TF continuous, increase by 5cc per hr until reaches goal of 30cc continous. - If able to tolerate continuous TF all day on 10/27, may change to bolus feeds 10/28 (3) Failure to thrive Current Visit: Yes Status: Acute Code(s): IQG9785 - SNOMED Code(s): 77413443 Comment: - On D5NS, will stop when he is tolerating trickle feeds, stop PM 10/27. - At this time no clear indication for TPN/PPN (4) H/O tongue cancer Current Visit: No Status: Acute Comment: - With above complications, no active cancer (5) Hypertension Current Visit: No Status: Acute Code(s): I10 - ESSENTIAL (PRIMARY) HYPERTENSION SNOMED Code(s): 19745764 Comment: - Resume home losartan per PEG with flush on 10/28 (6) Hypothyroidism Current Visit: No Status: Acute Code(s): E03.9 - HYPOTHYROIDISM, UNSPECIFIED SNOMED Code(s): 45324283 Comment: - continue levothyroxine, currently given IV, resume 225mg per PEG when tolerating feeds (7) Prostate cancer Current Visit: No Status: Acute Code(s): C61 - MALIGNANT NEOPLASM OF PROSTATE SNOMED Code(s): 860361773 Comment: - surveillance - continue outpatient follow up (8) DVT prophylaxis Current Visit: No Status: Acute Code(s): Z29.9 - ENCOUNTER FOR PROPHYLACTIC MEASURES, UNSPECIFIED SNOMED Code(s): 335990349 Comment: - [facility] (9) Full code status Current Visit: No Status: Acute Code(s): Z78.9 - OTHER SPECIFIED HEALTH STATUS SNOMED Code(s): 432178832 Status and Disposition: Inpatient PIV no fox Diet-NPO, started trickle feeds 10/27, hold at midnight, resume on 10/28 after barium study Case Mgmt: No need for PT OT at this time
[2019-10-28] MEDS: hydrALAZINE IV* 20 MG/ML VIAL IV SLOW PU PRN (08:50)
[2019-10-28] MEDS ORDERED: Ondansetron INJ* 2 MG/ML VIAL IV PRN (16:33)
[2019-10-29] MEDS: Heparin VIAL(*) 5000 UNITS/ML VIAL (FIVE THOUSAND) SUBCUT SCH ×3 (06:04→21:30)
[2019-10-29 06:30] LABS: ABS Eosinophils 0.1 10^3/ul (0-0.6); ABS Lymphocytes 0.7 10^3/ul (1.0-4.8); ABS Monocytes 0.3 10^3/ul (0-0.8); ABS Neutrophils 1.6 10^3/ul (1.5-7.7); Eosinophil % 2.2 %; Hematocrit 41 % (42-52); Hemoglobin 13.7 g/dL (14.0-18.0); Lymphocyte % 26.1 %; Mean Corpuscular HGB Conc 34 g/dL (31-36); Mean Corpuscular Hemoglobin 30 pg (27-31); Mean Corpuscular Volume 90 fL (80-94); Mean Platelet Volume 9.5 fL (7.4-10.4); Nucleated Red Blood Cells % 0.2; Platelet Count 123 10^3/uL (150-450); Red Blood Count 4.58 10^6 /uL (4.18-5.48); Red Cell Distribution Width 15 % (10-15); White Blood Count 2.7 10^3/uL (3.5-10.8)
[2019-10-29] MEDS: Losartan TAB* 25 MG PEG TUBE SCH (06:39)
[2019-10-29 06:45] LABS: BUN/Creatinine Ratio 11.7 (8-20); EGFR African American 120.5 (>60); EGFR Non-African American 99.6 (>60); Potassium 3.8 mmol/L (3.5-5.0)
--- NOTE | 2019-10-29 07:13 | PN ---
Subjective Date of Service: 10/29/19 Interval History: HD4 on 10/28 69M PMH SCC tongue/neck s/p radical dissection/chemo/radiation in 2006 c/b late esophageal strictures and dysphagia with recent PEG tube placement on 10/24/19, surgical hypothyroidism, HTN, HLD, prostate Ca who presented aspirating tube feeds, now POD#6 from PEG placement from presumed ileus. Overnight, no acute events, VSS-mild HTN on 1 reading, asymptomatic Yesterday started triclkle feeds and tolerated but was never titrated beyond 5cc hr Labs: Mild leukopenia This morning, pt reports pain improving from PEG site, feels pressure to have BM and flatus, tolerated tube feeds overnight with minimal residuals, and did "cough"up about 50cc of Jevity this AM-denies vomiting, denies SOB, CP or other productive cough Objective Active Medications: Acetaminophen (Tylenol Tab*) 650 mg PO Q4H PRN PRN Reason: PAIN-MILD/TEMP >/= 100.4 Heparin Sodium (Porcine) (Heparin Vial(*)) 5,000 units SUBCUT Q8HR [facility] Last Admin: 10/29/19 06:04 Dose: Not Given Hydralazine HCl (Apresoline Iv*) 5 mg IV SLOW PU Q6H PRN PRN Reason: SBP > 160 Last Admin: 10/28/19 08:50 Dose: 5 mg Levothyroxine Sodium (Synthroid Inj*) 75 mcg IV DAILY@0600 [facility] Last Admin: 10/28/19 05:55 Dose: 75 mcg Losartan Potassium (Cozaar Tab*) 100 mg PEG TUBE 0600 [facility] Last Admin: 10/29/19 06:39 Dose: 100 mg Morphine Sulfate (Morphine Inj (Syringe))*) 2 mg IV Q4H PRN PRN Reason: PAIN - SEVERE Ondansetron HCl (Zofran Inj*) 4 mg IV Q6H PRN PRN Reason: NAUSEA Vital Signs - 8 hr 10/28/19 10/29/19 23:15 03:03 Pulse Rate 52 51 Respiratory 16 Rate Blood Pressure 123/70 (mmHg) O2 Sat by Pulse 95 Oximetry Oxygen Devices in Use Now: None Appearance: Thin man in NAD, pleasant with at bedside Eyes: No Scleral Icterus, PERRLA Ears/Nose/Mouth/Throat: NL Teeth, Lips, Gums, Clear Oropharnyx Neck: NL Appearance and Movements; NL JVP, Trachea Midline Respiratory: Symmetrical Chest Expansion and Respiratory Effort, Clear to Auscultation Cardiovascular: NL Sounds; No Murmurs; No JVD, RRR Abdominal: NL Sounds; No Tenderness; No Distention, - - PEG CDI non tender, Active BS in all 4 quadrants Lymphatic: No Cervical Adenopathy Extremities: No Edema Skin: No Rash or Ulcers Neurological: Alert and Oriented x 3 - Nutrition: Malnutrition Diagnosis/Plan Malnutrition Assessment by Registered Dietitian: Malnutrition Assessment Clinical Characteristics Acute,Severe Malnutrition Assessment: Muscle Wasting - Pectoral/deltoid (moderate) Criteria Inadequate 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 GI Related - Recommend continuing prokinetic given ileus; will monitor GI s/sx for tolerance to TF Malnutrition Assessment: Goals 1) Recommend advancing TF as tolerated 2) Pt will tolerate TF w/o development of GI s/ sx or aspiration 3) Adequate enteral infusion to replete lean body mass, support wt gain as desired and hydration status 4) Maintain fluid/electrolyte balance w/ adequate enteral infusion 5) Maintain bowel regularity w/ adequate enteral infusion w/o development of diarrhea/ constipation Result Diagrams: 10/29/19 06:10 10/29/19 06:10 Additional Lab and Data: Microbiology and Other Data: Microbiology 10/26/19 12:45 Gram Stain - Final Sputum Diagnostic Imaging: CT A/P 10/24 IMPRESSION: 1. Peg tube balloon inflated in the stomach and appears unremarkable. 2. Moderate gaseous distension of the colon without small bowel obstruction. 3. Small amount of abnormal free fluid in the pelvis, without abscess. 4. No other acute disease seen. As above. From Dr. Villarreal The contrast injected into the feeding tube is seen in the dependent portion of the stomach. There is no leakage of contrast. There is no evidence of fistulous communication to the colon or other bowel. The colon is mildly enlarged and gas-filled but this extends as far as the rectum. There is no focal obstruction. CXR 10/24 IMPRESSION: HYPERINFLATION, CONSISTENT WITH COPD. NO ACTIVE CARDIOPULMONARY DISEASE. AXR 10/24: IMPRESSION: LINES AND TUBES ABOVE. NONSPECIFIC BOWEL GAS PATTERN. Assess/Plan/Problems-Billing Assessment: 69M PMH SCC tongue/neck s/p radical dissection/radiation/chemo in 2006 c/b late esophageal strictures and dysphagia with recent PEG tube placement on 10/24/19, surgical hypothyroidism, HTN, HLD, prostate Ca who presented aspirating tube feeds, now POD#6 from PEG placement from presumed ileus. Since initiating bowel rest, pt continues to cough up what appears to be thin tube feeds despite ileus distal to PEG tube that continues to improve. While this may all represent distal ileus and gastroparesis with GERD, reflux and some regurgitation of tube feeds, pt is at risk for tracheo-esophageal fistula given extensive radiation hx and seems reasonable to explore this option with modified barium and esophagram on 10/28. - Patient Problems (1) PEG tube malfunction Current Visit: Yes Status: Acute Code(s): K94.23 - GASTROSTOMY MALFUNCTION SNOMED Code(s): 228539232 Comment: - Seems to be a post operative ileus, was givne reglan, bowel rest, and encouraged ambulation - Tolerated trickle feeds 10/27, will trial bolus feeds after scans - Modified barium, possible esophagram to r/o fistula given he continues to "cough" tube feeds, witnessed by family, nursing, this provider. - Will consult to GI today as Dr. Julio is familiar with his case - If no improvement, may need re eval by IR to discuss J tube (2) Ileus Current Visit: Yes Status: Acute Code(s): K56.7 - ILEUS, UNSPECIFIED SNOMED Code(s): 214497223 Comment: - as per above - Holding reglan after x4 doses - change to bolus feeds 10/28 once ruled out other path, if unable to tolerate may need G-J tube (3) Failure to thrive Current Visit: Yes Status: Acute Code(s): DWL9300 - SNOMED Code(s): 84446875 Comment: - At this time no clear indication for TPN/PPN (4) H/O tongue cancer Current Visit: No Status: Acute Comment: - With above complications, no active cancer (5) Hypertension Current Visit: No Status: Acute Code(s): I10 - ESSENTIAL (PRIMARY) HYPERTENSION SNOMED Code(s): 05874985 Comment: - Resume home losartan per PEG with flush on 10/28 (6) Hypothyroidism Current Visit: No Status: Acute Code(s): E03.9 - HYPOTHYROIDISM, UNSPECIFIED SNOMED Code(s): 59108282 Comment: - continue levothyroxine, currently given IV, resume 225mg per PEG when tolerating feeds (7) Prostate cancer Current Visit: No Status: Acute Code(s): C61 - MALIGNANT NEOPLASM OF PROSTATE SNOMED Code(s): 015362736 Comment: - surveillance - continue outpatient follow up (8) DVT prophylaxis Current Visit: No Status: Acute Code(s): Z29.9 - ENCOUNTER FOR PROPHYLACTIC MEASURES, UNSPECIFIED SNOMED Code(s): 269203666 Comment: - [facility] (9) Full code status Current Visit: No Status: Acute Code(s): Z78.9 - OTHER SPECIFIED HEALTH STATUS SNOMED Code(s): 456873927 Status and Disposition: Inpatient PIV no fox Diet-NPO awaiting swallowing studies Case Mgmt: No need for PT OT at this time
[2019-10-29] MEDS: Levothyroxine INJ* 100 MCG/5 ML VIAL IV SCH (11:37)
--- NOTE | 2019-10-29 15:37 | PN ---
Hospitalist Progress Note Date of Service: 10/29/19 Updated plan of care Pt went for esophagram where barium was inserted into G tube but was unable to regurg or cough thus study may be non diagnostic. Spoke with Dr. Villarreal, we discussed improving illeus though continues to cough thin liquids up, discuss if esophogram is not revealing, and pt does not tolerate small bolus feeds may need to convert G to J tube. Will trial low volume bolus feeds this afternoon (he tolerated trickle continuos feeds on 10/27) and see how it goes. Appreciate GI input if there is anything else we are missing.
[2019-10-29] MEDS: hydrALAZINE IV* 20 MG/ML VIAL IV SLOW PU PRN (16:12)
[2019-10-30] MEDS: Heparin VIAL(*) 5000 UNITS/ML VIAL (FIVE THOUSAND) SUBCUT SCH ×3 (04:35→22:51)
[2019-10-30] MEDS: Losartan TAB* 25 MG PEG TUBE SCH (04:42)
[2019-10-30 05:58] LABS: ABS Eosinophils 0.1 10^3/ul (0-0.6); ABS Lymphocytes 0.6 10^3/ul (1.0-4.8); ABS Monocytes 0.3 10^3/ul (0-0.8); ABS Neutrophils 3.5 10^3/ul (1.5-7.7); Eosinophil % 1.7 %; Hematocrit 41 % (42-52); Hemoglobin 14.2 g/dL (14.0-18.0); Lymphocyte % 12.9 %; Mean Corpuscular HGB Conc 35 g/dL (31-36); Mean Corpuscular Hemoglobin 31 pg (27-31); Mean Corpuscular Volume 89 fL (80-94); Mean Platelet Volume 9.7 fL (7.4-10.4); Platelet Count 131 10^3/uL (150-450); Red Blood Count 4.61 10^6 /uL (4.18-5.48); Red Cell Distribution Width 14 % (10-15); White Blood Count 4.6 10^3/uL (3.5-10.8)
[2019-10-30] MEDS: Levothyroxine INJ* 100 MCG/5 ML VIAL IV SCH (06:24)
--- NOTE | 2019-10-30 12:10 | PN ---
Subjective Date of Service: 10/30/19 Interval History: HD5 on 10/29 69M PMH SCC tongue/neck s/p radical dissection/chemo/radiation in 2006 c/b late esophageal strictures and dysphagia with recent PEG tube placement on 10/24/19, surgical hypothyroidism, HTN, HLD, prostate Ca who presented aspirating tube feeds, now POD#7 from PEG placement from presumed ileus. An attempt to visualize esophagus with barium was performed on 10/28, though he did not have any reflux with barium via PEG so it was non diagnostic. Overnight, no acute events, VSS-mild HTN on 1 reading, asymptomatic Started 08/23 can Jevitiy every 3 hours and pt has tolerated all night! Labs: Mild leukopenia This morning, pt reports feeling well, has had no regurg of Jevity in 24 hours and is still not at goal, no BM yet, + flatus. No pain. Objective Active Medications: Acetaminophen (Tylenol Tab*) 650 mg PO Q4H PRN PRN Reason: PAIN-MILD/TEMP >/= 100.4 Heparin Sodium (Porcine) (Heparin Vial(*)) 5,000 units SUBCUT Q8HR [facility] Last Admin: 10/30/19 04:35 Dose: Not Given Hydralazine HCl (Apresoline Iv*) 5 mg IV SLOW PU Q6H PRN PRN Reason: SBP > 160 Last Admin: 10/29/19 16:12 Dose: 5 mg Levothyroxine Sodium (Synthroid Inj*) 75 mcg IV DAILY@0600 [facility] Last Admin: 10/30/19 06:24 Dose: 75 mcg Losartan Potassium (Cozaar Tab*) 100 mg PEG TUBE 0600 [facility] Last Admin: 10/30/19 04:42 Dose: Not Given Morphine Sulfate (Morphine Inj (Syringe))*) 2 mg IV Q4H PRN PRN Reason: PAIN - SEVERE Ondansetron HCl (Zofran Inj*) 4 mg IV Q6H PRN PRN Reason: NAUSEA Vital Signs - 8 hr 10/30/19 07:15 Temperature 97.3 F Pulse Rate 55 Respiratory 18 Rate Blood Pressure 107/57 (mmHg) O2 Sat by Pulse 92 Oximetry Oxygen Devices in Use Now: None Appearance: Very pleasant man in NAD Eyes: No Scleral Icterus, PERRLA Ears/Nose/Mouth/Throat: NL Teeth, Lips, Gums Neck: NL Appearance and Movements; NL JVP, Trachea Midline Respiratory: Symmetrical Chest Expansion and Respiratory Effort, Clear to Auscultation Cardiovascular: NL Sounds; No Murmurs; No JVD, RRR Abdominal: - - PEG CDI soft +BS Lymphatic: No Cervical Adenopathy Extremities: No Edema Skin: No Rash or Ulcers Neurological: Alert and Oriented x 3 - Nutrition: Malnutrition Diagnosis/Plan Malnutrition Assessment by Registered Dietitian: Malnutrition Assessment Clinical Characteristics Acute,Severe Malnutrition Assessment: Muscle Wasting - Pectoral/deltoid (moderate) Criteria Inadequate Oral Intake - 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 GI Related - Recommend continuing prokinetic given ileus; will monitor GI s/sx for tolerance to TF Malnutrition Assessment: Goals 1) Recommend advancing TF as tolerated 2) Pt will tolerate TF w/o development of GI s/ sx or aspiration 3) Adequate enteral infusion to replete lean body mass, support wt gain as desired and hydration status 4) Maintain fluid/electrolyte balance w/ adequate enteral infusion 5) Maintain bowel regularity w/ adequate enteral infusion w/o development of diarrhea/ constipation Result Diagrams: 10/30/19 05:18 10/29/19 06:10 Additional Lab and Data: Microbiology and Other Data: Microbiology 10/26/19 12:45 Gram Stain - Final Sputum Diagnostic Imaging: CT A/P 10/24 IMPRESSION: 1. Peg tube balloon inflated in the stomach and appears unremarkable. 2. Moderate gaseous distension of the colon without small bowel obstruction. 3. Small amount of abnormal free fluid in the pelvis, without abscess. 4. No other acute disease seen. As above. From Dr. Villarreal The contrast injected into the feeding tube is seen in the dependent portion of the stomach. There is no leakage of contrast. There is no evidence of fistulous communication to the colon or other bowel. The colon is mildly enlarged and gas-filled but this extends as far as the rectum. There is no focal obstruction. CXR 10/24 IMPRESSION: HYPERINFLATION, CONSISTENT WITH COPD. NO ACTIVE CARDIOPULMONARY DISEASE. AXR 10/24: IMPRESSION: LINES AND TUBES ABOVE. NONSPECIFIC BOWEL GAS PATTERN. Assess/Plan/Problems-Billing Assessment: 69M PMH SCC tongue/neck s/p radical dissection/radiation/chemo in 2006 c/b late esophageal strictures and dysphagia with recent PEG tube placement on 10/24/19, surgical hypothyroidism, HTN, HLD, prostate Ca who presented aspirating tube feeds, now POD#7 from PEG placement from presumed ileus. Since initiating bowel rest, pt continued to cough up what appears to be thin tube feeds despite ileus distal to PEG tube that continues to improve. While this may all represent distal ileus and gastroparesis with GERD, reflux and some regurgitation of tube feeds, pt is at risk for tracheo-esophageal fistula given extensive radiation hx, an attempt to visualize this was performed on 10/28 , though he did not have any reflux with barium via PEG thus procedure was non diagnostic. Today 10/29, pt beginning to tolerate bolus feeds, if able to advance to meet his nutritional goals, may be able to d/c 10/30. - Patient Problems (1) PEG tube malfunction Current Visit: Yes Status: Acute Code(s): K94.23 - GASTROSTOMY MALFUNCTION SNOMED Code(s): 328158821 Comment: - Seems to be a post operative ileus, was givne reglan, bowel rest, and encouraged ambulation - Tolerated trickle feeds 10/27, low volume bolus feeding 10/28, will attempt larger volume bolus 10/29 - Modified barium, possible esophagram non diagnostic for esophageal path - Will consult to GI today as Dr. Julio is familiar with his case - If no improvement, may need re eval by IR to discuss J tube (2) Ileus Current Visit: Yes Status: Acute Code(s): K56.7 - ILEUS, UNSPECIFIED SNOMED Code(s): 397752323 Comment: - as per above - Holding reglan after x4 doses - change to bolus feeds 10/28 once ruled out other path, if unable to tolerate may need G-J tube (3) Failure to thrive Current Visit: Yes Status: Acute Code(s): [id number] - SNOMED Code(s): 66482874 Comment: - At this time no clear indication for TPN/PPN (4) H/O tongue cancer Current Visit: No Status: Acute Comment: - With above complications, no active cancer (5) Hypertension Current Visit: No Status: Acute Code(s): I10 - ESSENTIAL (PRIMARY) HYPERTENSION SNOMED Code(s): 95037152 Comment: - Resume home losartan per PEG with flush on 10/28 (6) Hypothyroidism Current Visit: No Status: Acute Code(s): E03.9 - HYPOTHYROIDISM, UNSPECIFIED SNOMED Code(s): 45137772 Comment: - continue levothyroxine, currently given IV, resume 225mg per PEG when tolerating feeds (7) Prostate cancer Current Visit: No Status: Acute Code(s): C61 - MALIGNANT NEOPLASM OF PROSTATE SNOMED Code(s): 974528350 Comment: - surveillance - continue outpatient follow up (8) DVT prophylaxis Current Visit: No Status: Acute Code(s): Z29.9 - ENCOUNTER FOR PROPHYLACTIC MEASURES, UNSPECIFIED SNOMED Code(s): 619937599 Comment: - [facility] (9) Full code status Current Visit: No Status: Acute Code(s): Z78.9 - OTHER SPECIFIED HEALTH STATUS SNOMED Code(s): 828783028 Status and Disposition: Inpatient PIV no fox Diet-1 can jevity q 4 hours noon, 4 PM, 2 cans at 8PM Case Mgmt: No need for PT OT at this time, if toelrating full bolus feedings d/ c 10/30
--- NOTE | 2019-10-30 14:39 | CONS ---
CONSULTATION REPORT: DATE OF CONSULT: 10/29/19 INDICATION: Coughing or regurgitating of PEG tube contents. NARRATIVE: Mr. Mendoza is a very pleasant 69-year-old gentleman well known to myself. I had seen him a few weeks ago in evaluation for a PEG tube, did not feel that I could place it endoscopically and it was placed radiographically by Dr. Villarreal last week. The patient came back in on Tuesday due to co ughing up of tube feeds. He had started the tube feeds; however, would start coughing and then bring up or cough up the tube feeds. He states that this continued over the weekend. He was evaluated by Dr. Villarreal. CT was unremarkable. It was felt that maybe he could have an ileus. He states that he did have a small bowel movement this morning. He did go down today for a barium esophagram; however , it was converted over to a barium tube check due to the fact that the radiologists were concerned a bout him potentially aspirating the barium. His stomach was filled up with barium and then they trie d to induce coughing by positioning him in various positions; however, he did not begin to cough at a ll and did not bring up any of the tube feeds. It has been difficult to advance him beyond just tric kle tube feeds. There was a concern about a possible fistula from either stomach or esophagus into t he trachea and that was the reason for the barium esophagram. There was a question of whether or not an endoscopy would be helpful; however, typically, endoscopies are not very helpful in looking for f istulas due to the very small opening of a fistulous tract and given his history of radiation and sca r tissue from the previous radical neck dissections, I think performing an endoscopy with an adult mn ope likely would not be viable and using the pediatric scope may also not be viable and the images ar e not quite as good with those, thus I do not think an endoscopic approach to this would be very help ful. PAST MEDICAL HISTORY: Significant for tongue cancer. He has also had thyroid cancer, hypertension, hypothyroid, prostate cancer. PAST SURGICAL HISTORY: Includes thyroidectomy, radical neck dissection, inguinal hernia repair, PEG tube placement earlier this month. MEDICATIONS: Include: 1. Amlodipine. 2. Losartan. 3. Levothyroxine. 4. Aspirin. ALLERGIES: To PENICILLIN and HYDROCHLOROTHIAZIDE. FAMILY HISTORY: Significant for lung cancer and dementia. SOCIAL HISTORY: Positive tobacco in the past. No alcohol or IV drug use. REVIEW OF SYSTEMS: Twelve systems were reviewed and other than that mentioned in the HPI were unrema rkable. PHYSICAL EXAM: Temperature is 98.1, blood pressure is 194/85, pulse of 58, respiratory rate of 20, a nd O2 sat is 98%. General: Chronically ill-appearing male, appears slightly older than stated age, alert, oriented, pleasant, fluent. HEENT: Mucous membranes are dry without lesions, ulcers, or exuda te. Lungs: Clear to auscultation. Heart: Regular rate and rhythm. Abdomen: Positive bowel sounds . PEG tube in place and the area around it is clean, dry, and intact. However, he does have good bow el sounds and it is soft. Skin is warm and dry. LABORATORY DATA: Of note, hemoglobin is 13.7, platelets of 123. ASSESSMENT AND PLAN: This is a pleasant 69-year-old gentleman who recently had a PEG tube placement for dysphagia. Unfortunately, he has been bringing up PEG tube contents. There is a concern that he is coughing it up as he does seem to start coughing and then bring up the tube feeds; however, I won daxa if he could be regurgitating into his esophagus and then happens to cough and then brings it up a nd so in reality it is not coming from his lungs, it is coming from his stomach. In my thinking, the only way that the tube feed formula could be getting into his lungs to be coughed up would be if ther e was a fistula somehow between either the stomach or the esophagus into the trachea. Jules, he is going to attempt bolus feeds. We will see how that goes and there may need to be a consideration fo r a jejunal tube in order to get the feeds further down so he is not either coughing them or regurgit ating them up. We will await the results of jules's bolus feed trial. [id number]/[facility] #: [id number]
[2019-10-30] MEDS: hydrALAZINE IV* 20 MG/ML VIAL IV SLOW PU PRN (15:40)
[2019-10-30] MEDS ORDERED: NS 0.9% 500 ML* 500 ML IV ONE (23:32)
[2019-10-31] MEDS ORDERED: Cefepime 2 GM in Dextrose(*) 2 GM/50 ML BAG IV SCH (00:30)
[2019-10-31] MEDS ORDERED: Azithromycin 500 mg/250 ml NS 500 MG/250 ML BAG IVPB SCH (01:00)
--- NOTE | 2019-10-31 01:08 | PN ---
Hospitalist Progress Note Date of Service: 10/31/19 call for hypoxia nd low bp, cxr, shows rle consolidation, hx of aspiration however no fever and no wbc count, checking labs esr crp if elevated would start abx, 2 lnc now and sats 95 percent, pt mentating well, rhoch in right upper lobe, obtaining sputum cx, flu swab and blood cx, will given 500 cc bolus for bp, suspect bp low due to hydralaizine given at shift change, will follow closely,
[2019-10-31 01:10] LABS: ABS Lymphocytes 0.6 10^3/ul (1.0-4.8); ABS Monocytes 0.5 10^3/ul (0-0.8); ABS Neutrophils 5.1 10^3/ul (1.5-7.7); Eosinophil % 0.3 %; Hematocrit 38 % (42-52); Hemoglobin 13.1 g/dL (14.0-18.0); Lymphocyte % 9.5 %; Mean Corpuscular HGB Conc 34 g/dL (31-36); Mean Corpuscular Hemoglobin 31 pg (27-31); Mean Corpuscular Volume 89 fL (80-94); Mean Platelet Volume 9.7 fL (7.4-10.4); Platelet Count 138 10^3/uL (150-450); Red Blood Count 4.28 10^6 /uL (4.18-5.48); Red Cell Distribution Width 14 % (10-15); White Blood Count 6.3 10^3/uL (3.5-10.8)
[2019-10-31 01:25] LABS: Albumin 3.2 g/dL (3.2-5.2); BUN/Creatinine Ratio 17.9 (8-20); Calcium 8.6 mg/dL (8.6-10.3); EGFR African American 83.3 (>60); EGFR Non-African American 68.9 (>60); Globulin 3.2 g/dL (2-4); Potassium 3.6 mmol/L (3.5-5.0); Total Bilirubin 0.5 mg/dL (0.2-1.0); Total Protein 6.4 g/dL (6.4-8.9)
[2019-10-31] MEDS ORDERED: metroNIDAZOLE IV 500 MG/100ML* 500 MG/100 ML BAG IVPB SCH (02:00)
[2019-10-31 03:20] LABS: Influenza A Molecular Negative (Negative); Influenza B Molecular Negative (Negative)
[2019-10-31] MEDS: Heparin VIAL(*) 5000 UNITS/ML VIAL (FIVE THOUSAND) SUBCUT SCH ×3 (05:03→22:11)
[2019-10-31] MEDS: Levothyroxine INJ* 100 MCG/5 ML VIAL IV SCH (06:09)
[2019-10-31] MEDS: Losartan TAB* 25 MG PEG TUBE SCH (06:10)
--- NOTE | 2019-10-31 07:52 | PN ---
Subjective Date of Service: 10/31/19 Interval History: HD6 on 10/30 69M PMH SCC tongue/neck s/p radical dissection/chemo/radiation in 2006 c/b late esophageal strictures and dysphagia with recent PEG tube placement on 10/24/19, surgical hypothyroidism, HTN, HLD, prostate Ca who presented aspirating tube feeds, now POD#8 from PEG placement from presumed ileus. Interim Events: Attempted bolus feeds and pt vomited and aspirated into RLL, holding on abx for presumed pneumonitis Still no BM Overnight, events as above, VS- mild hypotension after aspiration, afebrile Labs: Stable This morning, pt is feeling well, he and his are anxious about his slow improvement but he has no other complaints Objective Active Medications: Acetaminophen (Tylenol Tab*) 650 mg PO Q4H PRN PRN Reason: PAIN-MILD/TEMP >/= 100.4 Heparin Sodium (Porcine) (Heparin Vial(*)) 5,000 units SUBCUT Q8HR [facility] Last Admin: 10/31/19 05:03 Dose: Not Given Levothyroxine Sodium (Synthroid Inj*) 75 mcg IV DAILY@0600 [facility] Last Admin: 10/31/19 06:09 Dose: 75 mcg Losartan Potassium (Cozaar Tab*) 100 mg PEG TUBE 0600 [facility] Last Admin: 10/31/19 06:10 Dose: 100 mg Morphine Sulfate (Morphine Inj (Syringe))*) 2 mg IV Q4H PRN PRN Reason: PAIN - SEVERE Ondansetron HCl (Zofran Inj*) 4 mg IV Q6H PRN PRN Reason: NAUSEA Vital Signs - 8 hr 10/31/19 03:38 Temperature 97.8 F Pulse Rate 66 Respiratory 20 Rate Blood Pressure 120/69 (mmHg) O2 Sat by Pulse 94 Oximetry Oxygen Devices in Use Now: None Appearance: Thin man in NAD Eyes: PERRLA Ears/Nose/Mouth/Throat: NL Teeth, Lips, Gums, Clear Oropharnyx Neck: NL Appearance and Movements; NL JVP Respiratory: Symmetrical Chest Expansion and Respiratory Effort, Clear to Auscultation Cardiovascular: NL Sounds; No Murmurs; No JVD, RRR Abdominal: - - Well healing PEG BS in all 4 quadrants Lymphatic: No Cervical Adenopathy Extremities: No Edema Skin: No Rash or Ulcers Neurological: Alert and Oriented x 3 - Nutrition: Malnutrition Diagnosis/Plan Malnutrition Assessment by Registered Dietitian: Malnutrition Assessment Clinical Characteristics Acute,Severe Malnutrition Assessment: Muscle Wasting - Pectoral/deltoid (moderate) Criteria Inadequate Oral Intake - 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 GI Related - Recommend continuing prokinetic given ileus; will monitor GI s/sx for tolerance to TF Malnutrition Assessment: Goals 1) Recommend advancing TF as tolerated 2) Pt will tolerate TF w/o development of GI s/ sx or aspiration 3) Adequate enteral infusion to replete lean body mass, support wt gain as desired and hydration status 4) Maintain fluid/electrolyte balance w/ adequate enteral infusion 5) Maintain bowel regularity w/ adequate enteral infusion w/o development of diarrhea/ constipation Result Diagrams: 10/31/19 00:55 10/31/19 00:55 Additional Lab and Data: Microbiology and Other Data: Microbiology 10/26/19 12:45 Gram Stain - Final Sputum Diagnostic Imaging: CT A/P 10/24 IMPRESSION: 1. Peg tube balloon inflated in the stomach and appears unremarkable. 2. Moderate gaseous distension of the colon without small bowel obstruction. 3. Small amount of abnormal free fluid in the pelvis, without abscess. 4. No other acute disease seen. As above. From Dr. Villarreal The contrast injected into the feeding tube is seen in the dependent portion of the stomach. There is no leakage of contrast. There is no evidence of fistulous communication to the colon or other bowel. The colon is mildly enlarged and gas-filled but this extends as far as the rectum. There is no focal obstruction. CXR 10/24 IMPRESSION: HYPERINFLATION, CONSISTENT WITH COPD. NO ACTIVE CARDIOPULMONARY DISEASE. AXR 10/24: IMPRESSION: LINES AND TUBES ABOVE. NONSPECIFIC BOWEL GAS PATTERN. Assess/Plan/Problems-Billing Assessment: 69M PMH SCC tongue/neck s/p radical dissection/radiation/chemo in 2006 c/b late esophageal strictures and dysphagia with recent PEG tube placement on 10/24/19, surgical hypothyroidism, HTN, HLD, prostate Ca who presented aspirating tube feeds, now POD#8 from PEG placement from presumed ileus. Pt tolerated trickle feeds and then when attempting to advance to goal of 2 cans per meal, pt aspirated. Will lower bolus amt but if pt can not meet his nutritional goals may need to be converted to J tube. Appreciate GI input, will re consult to IR today - Patient Problems (1) Aspiration pneumonitis Current Visit: Yes Status: Acute Code(s): J69.0 - PNEUMONITIS DUE TO INHALATION OF FOOD AND VOMIT SNOMED Code(s): 064015836 Comment: - Pt didnt tolerate 2 cans of Jevity which is his nutritional goal - RLL consolidation, afebrile, no white count, most c/w chemical pneumonitis - Hold on abx (2) PEG tube malfunction Current Visit: Yes Status: Acute Code(s): K94.23 - GASTROSTOMY MALFUNCTION SNOMED Code(s): 065680675 Comment: - Initially seemed to be a post operative ileus, was given reglan, bowel rest, and encouraged ambulation--when attempting to advance to bolus feeds has aspirated on 10/30 - Modified barium, possible esophagram non diagnostic for esophageal path - Appreciate Dr. Julio who feels pt may need J conversion - Reconsult to IR (3) Ileus Current Visit: Yes Status: Acute Code(s): K56.7 - ILEUS, UNSPECIFIED SNOMED Code(s): 079224123 Comment: - Resolved (4) Failure to thrive Current Visit: Yes Status: Acute Code(s): DJD7814 - SNOMED Code(s): 89714784 Comment: - At this time no clear indication for TPN/PPN (5) H/O tongue cancer Current Visit: No Status: Acute Comment: - With above complications, no active cancer (6) Hypertension Current Visit: No Status: Acute Code(s): I10 - ESSENTIAL (PRIMARY) HYPERTENSION SNOMED Code(s): 38335234 Comment: - Resume home losartan per PEG with flush on 10/28 (7) Hypothyroidism Current Visit: No Status: Acute Code(s): E03.9 - HYPOTHYROIDISM, UNSPECIFIED SNOMED Code(s): 00092575 Comment: - continue levothyroxine, currently given IV, resume 225mg per PEG when tolerating feeds (8) Prostate cancer Current Visit: No Status: Acute Code(s): C61 - MALIGNANT NEOPLASM OF PROSTATE SNOMED Code(s): 709918915 Comment: - surveillance - continue outpatient follow up (9) DVT prophylaxis Current Visit: No Status: Acute Code(s): Z29.9 - ENCOUNTER FOR PROPHYLACTIC MEASURES, UNSPECIFIED SNOMED Code(s): 902800061 Comment: - [facility] (10) Full code status Current Visit: No Status: Acute Code(s): Z78.9 - OTHER SPECIFIED HEALTH STATUS SNOMED Code(s): 651471883 Status and Disposition: Inpatient PIV no fox Diet-Trial bolus feeds and miralax today Case Mgmt: No need for PT OT at this time, if toelrating full bolus feedings d/ c 10/30
[2019-10-31] MEDS: Polyethylene Glycol 3350* 17 GM PACKET PO SCH ×2 (10:33→22:56)
--- NOTE | 2019-10-31 20:50 | PN ---
Progress Note - Progress Note Date of Service: 10/31/19 SOAP: Subjective: Patient denies any significant pain at the gastrostomy tube site. + Flatus. No BM today. Patient reports that he has not coughed up or aspirated and the of the tube feeds today. Objective: Selected Entries 10/31/19 15:15 Temperature 98.2 F Pulse Rate 54 Respiratory 20 Rate Blood Pressure 98/50 (mmHg) Blood Pressure 66 Mean O2 Sat by Pulse 96 Oximetry NAD, AAO x 3 Sitting up in bed and conversant. Epigastric area surrounding the feeding tube is soft and nontender. The abdomen is soft and nontender. There is no rebound or guarding. Assessment: 69-year-old man postoperative day #8 status post ultrasound and fluoroscopy guided percutaneous gastrostomy feeding tube placement. The patient returned to the emergency department on 10/26/2019 because he was coughing up to feeds and potentially having further aspiration due to what appeared to be an ileus. The patient's ileus has been improving slowly and so far today he has tolerated his tube feeds. Plan: 1. There are exchanging a fresh gastrostomy tube site for a gastrojejunostomy feeding tube within 2 weeks of initial placement has a heightened rest of lesser omentum gastric leakage and/or infection, if the patient continues to not tolerate tube feeds through the gastrostomy a GJ conversion may be indicated. 2. IR will continue to follow the patient. 3. Gastropexy sutures and feeding tube suture were removed at the bedside.
--- NOTE | 2019-10-31 20:52 | BRIEFOPN ---
Brief Operative/Procedure Note - Operation Details Pre-Op Diagnosis: Postoperative day #8 status post gastrostomy tube placement. Post-Op Diagnosis: Postoperative day #8 status post gastrostomy tube placement. Procedures: Bedside removal of 3 gastropexy sutures as well as the "pursestring " suture tied around the gastrostomy tube. Surgeon(s)/Proceduralists: Cherelle Anesthesia: None Estimated Blood Loss: 0 Findings: Uncomplicated removal. Specimen(s)/Culture(s) Description: 0 Complications: 0
[2019-10-31] MEDS ORDERED: Polyethylene Glycol 3350* 17 GM PACKET PO SCH (21:00)
[2019-11-01] MEDS: Heparin VIAL(*) 5000 UNITS/ML VIAL (FIVE THOUSAND) SUBCUT SCH ×2 (04:11→13:27)
[2019-11-01] MEDS: Losartan TAB* 25 MG PEG TUBE SCH (06:00)
[2019-11-01] MEDS: Levothyroxine INJ* 100 MCG/5 ML VIAL IV SCH (06:08)
[2019-11-01 06:44] LABS: ABS Eosinophils 0.2 10^3/ul (0-0.6); ABS Lymphocytes 0.8 10^3/ul (1.0-4.8); ABS Monocytes 0.4 10^3/ul (0-0.8); ABS Neutrophils 2.3 10^3/ul (1.5-7.7); Eosinophil % 5.4 %; Hematocrit 39 % (42-52); Hemoglobin 13.3 g/dL (14.0-18.0); Lymphocyte % 21.2 %; Mean Corpuscular HGB Conc 34 g/dL (31-36); Mean Corpuscular Hemoglobin 30 pg (27-31); Mean Corpuscular Volume 89 fL (80-94); Mean Platelet Volume 9.8 fL (7.4-10.4); Nucleated Red Blood Cells % 0.1; Platelet Count 134 10^3/uL (150-450); Red Cell Distribution Width 15 % (10-15); White Blood Count 3.7 10^3/uL (3.5-10.8)
[2019-11-01 06:49] LABS: BUN/Creatinine Ratio 26.4 (8-20); Calcium 8.8 mg/dL (8.6-10.3); EGFR African American 99.4 (>60); EGFR Non-African American 82.1 (>60)
--- NOTE | 2019-11-01 07:36 | PN ---
Subjective Date of Service: 11/01/19 Interval History: HD7 on 10/31 69M PMH SCC tongue/neck s/p radical dissection/chemo/radiation in 2006 c/b late esophageal strictures and dysphagia with recent PEG tube placement on 10/24/19, surgical hypothyroidism, HTN, HLD, prostate Ca who presented aspirating tube feeds, now POD#8 from PEG placement from presumed ileus. Interim Events: Attempted bolus feeds at goal yesterday and pt tolerated Overnight, events as above, VS- mild hypotension after aspiration, afebrile Labs: Stable This morning, pt is feeling well, tolerating goal feeds and had a BM! No pain, no cough no issues Objective Active Medications: Acetaminophen (Tylenol Tab*) 650 mg PO Q4H PRN PRN Reason: PAIN-MILD/TEMP >/= 100.4 Heparin Sodium (Porcine) (Heparin Vial(*)) 5,000 units SUBCUT Q8HR [facility] Last Admin: 11/01/19 04:11 Dose: Not Given Levothyroxine Sodium (Synthroid Inj*) 75 mcg IV DAILY@0600 [facility] Last Admin: 11/01/19 06:08 Dose: 75 mcg Losartan Potassium (Cozaar Tab*) 100 mg PEG TUBE 0600 [facility] Last Admin: 11/01/19 06:00 Dose: 100 mg Ondansetron HCl (Zofran Inj*) 4 mg IV Q6H PRN PRN Reason: NAUSEA Polyethylene Glycol/Electrolytes (Miralax (17 Gm Dose Brian)) 17 gm PO 0800,2100 [facility] Last Admin: 10/31/19 22:56 Dose: 17 gm Vital Signs - 8 hr 11/01/19 11/01/19 04:41 06:40 Temperature 97.7 F Pulse Rate 52 Respiratory 20 Rate Blood Pressure 111/58 141/69 (mmHg) O2 Sat by Pulse 95 Oximetry Oxygen Devices in Use Now: None Appearance: Thin man in NAD Eyes: No Scleral Icterus Ears/Nose/Mouth/Throat: NL Teeth, Lips, Gums Neck: NL Appearance and Movements; NL JVP, Trachea Midline Respiratory: Symmetrical Chest Expansion and Respiratory Effort, Clear to Auscultation Cardiovascular: NL Sounds; No Murmurs; No JVD, RRR Abdominal: - - Soft NT ND - Nutrition: Malnutrition Diagnosis/Plan Malnutrition Assessment by Registered Dietitian: Malnutrition Assessment Clinical Characteristics Acute,Severe Malnutrition Assessment: Muscle Wasting - Pectoral/deltoid (moderate) Criteria Inadequate Oral Intake - 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 GI Related - Recommend continuing prokinetic given ileus; will monitor GI s/sx for tolerance to TF Malnutrition Assessment: Goals 1) Recommend advancing TF as tolerated 2) Pt will tolerate TF w/o development of GI s/ sx or aspiration 3) Adequate enteral infusion to replete lean body mass, support wt gain as desired and hydration status 4) Maintain fluid/electrolyte balance w/ adequate enteral infusion 5) Maintain bowel regularity w/ adequate enteral infusion w/o development of diarrhea/ constipation Result Diagrams: 11/01/19 05:53 11/01/19 05:53 Additional Lab and Data: Microbiology and Other Data: Microbiology 10/26/19 12:45 Gram Stain - Final Sputum Diagnostic Imaging: CT A/P 10/24 IMPRESSION: 1. Peg tube balloon inflated in the stomach and appears unremarkable. 2. Moderate gaseous distension of the colon without small bowel obstruction. 3. Small amount of abnormal free fluid in the pelvis, without abscess. 4. No other acute disease seen. As above. From Dr. Villarreal The contrast injected into the feeding tube is seen in the dependent portion of the stomach. There is no leakage of contrast. There is no evidence of fistulous communication to the colon or other bowel. The colon is mildly enlarged and gas-filled but this extends as far as the rectum. There is no focal obstruction. CXR 10/24 IMPRESSION: HYPERINFLATION, CONSISTENT WITH COPD. NO ACTIVE CARDIOPULMONARY DISEASE. AXR 10/24: IMPRESSION: LINES AND TUBES ABOVE. NONSPECIFIC BOWEL GAS PATTERN. Assess/Plan/Problems-Billing Assessment: 69M PMH SCC tongue/neck s/p radical dissection/radiation/chemo in 2006 c/b late esophageal strictures and dysphagia with recent PEG tube placement on 10/24/19, surgical hypothyroidism, HTN, HLD, prostate Ca who presented aspirating tube feeds, now POD#8 from PEG placement from presumed ileus. Pt tolerating goal TF, if has re aspiration at home plan would be to convert to J - Patient Problems (1) Aspiration pneumonitis Current Visit: Yes Status: Resolved Code(s): J69.0 - PNEUMONITIS DUE TO INHALATION OF FOOD AND VOMIT SNOMED Code(s): 073334530 Comment: - No e/o PNA (2) PEG tube malfunction Current Visit: Yes Status: Acute Code(s): K94.23 - GASTROSTOMY MALFUNCTION SNOMED Code(s): 203156483 Comment: - Initially seemed to be a post operative ileus, was given reglan, bowel rest, and encouraged ambulation--when attempting to advance to bolus feeds has aspirated on 10/30, no further aspiration after this - Modified barium, possible esophagram non diagnostic for esophageal path - Appreciate Dr. Julio who feels pt may need J conversion - Reconsult to IR who feels pt safe to dc to home and if aspirates in iterim will convert to J next week (3) Ileus Current Visit: Yes Status: Acute Code(s): K56.7 - ILEUS, UNSPECIFIED SNOMED Code(s): 151399498 Comment: - Resolved (4) Failure to thrive Current Visit: Yes Status: Acute Code(s): KLS1235 - SNOMED Code(s): 09612644 Comment: - At this time no clear indication for TPN/PPN (5) H/O tongue cancer Current Visit: No Status: Acute Comment: - With above complications, no active cancer (6) Hypertension Current Visit: No Status: Acute Code(s): I10 - ESSENTIAL (PRIMARY) HYPERTENSION SNOMED Code(s): 11018653 Comment: - Resume home losartan per PEG with flush on 10/28 (7) Hypothyroidism Current Visit: No Status: Acute Code(s): E03.9 - HYPOTHYROIDISM, UNSPECIFIED SNOMED Code(s): 54685794 Comment: - continue levothyroxine, currently given IV, resume 225mg per PEG when tolerating feeds (8) Prostate cancer Current Visit: No Status: Acute Code(s): C61 - MALIGNANT NEOPLASM OF PROSTATE SNOMED Code(s): 156612468 Comment: - surveillance - continue outpatient follow up (9) DVT prophylaxis Current Visit: No Status: Acute Code(s): Z29.9 - ENCOUNTER FOR PROPHYLACTIC MEASURES, UNSPECIFIED SNOMED Code(s): 482169958 Comment: - SQH (10) Full code status Current Visit: No Status: Acute Code(s): Z78.9 - OTHER SPECIFIED HEALTH STATUS SNOMED Code(s): 033391002 Status and Disposition: Inpatient PIV no fox Diet-Trial bolus feeds and miralax today Case Mgmt: No need for PT OT at this time, if toelrating full bolus feedings d/ c 10/31
[2019-11-01] MEDS: Polyethylene Glycol 3350* 17 GM PACKET PO SCH (07:58)
[2019-11-01 11:11] VITALS: BP 112/52
--- NOTE | 2019-11-01 22:39 | DS ---
CC: Dr. Ladonna lAy * DISCHARGE SUMMARY: DATE OF ADMISSION: 10/26/19 DATE OF DISCHARGE: 11/01/19 PRIMARY CARE PROVIDER: Dr. Ladonna Aly. DISPOSITION AT THE TIME OF DISCHARGE: Stable to be discharged to home. PRIMARY DIAGNOSES: PEG tube malfunction and aspiration in the setting of ileus. SECONDARY DIAGNOSES: 1. 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 2. Recent PEG tube placement on 10/24/19. 3. Surgical hypothyroidism. 4. Hypertension. 5. Hyperlipidemia. 6. Prostate cancer. MEDICATIONS AT THE TIME OF DISCHARGE: 1. Aspirin 81 mg via PEG tube at 6 a.m. 2. Multivitamin 1 tablet through PEG tube daily. 3. Levothyroxine 225 mcg per PEG tube at 5 a.m. 4. Losartan 100 mg per PEG tube at 6 a.m. Medication changes on this hospitalization: Discontinuation of amlodipine. DIET AT THE TIME OF DISCHARGE: Two cans of Jevity per meal and an additional can throughout the day for a total of 7 cans daily with free water flushes intermittently as needed. HISTORY OF PRESENT ILLNESS AND HOSPITAL COURSE: A 69-year-old male with the above past medical history, who presented on 10/26/19 with episodes of aspiration after his PEG tube placement on 10/24/19. The patient reports that he had been coughing since his discharge from the hospital for initial PEG tube placement with Dr. Villarreal and was coughing up tube feeds. It was unclear if this was regurgitation or another cause and thus they decided to come into the emergency room. He had no evidence of hypoxia, although was coughing. He does not require oxygen at home. In the emergency room, his vital signs were stable. A chest x-ray was done, which showed evidence of hyperinflation but no aspiration pneumonia or pneumonitis. His labs were done, which were unremarkable and a PEG tube check revealed a normal healthy functioning PEG tube. It was thought that the patient had an ileus after PEG tube placement and this was causing his inability to feed and thus he was admitted to the hospital for further monitoring and observation. His hospital course by problem list is as follows: 1. Aspiration of tube feeds with ? PEG tube malfunction. Dr. Villarreal evaluated the PEG tube 3 days status post placement and felt that it was working well. He was hesitant to convert it to a jejunal tube and thought that it was reasonable to treat conservatively for an ileus to give the patient the freedom to continue bolus feeding as opposed to continuous feeding. The patient was started on Reglan, bowel regimen, and was told to walk aggressively. He started having flatus and bowel sounds by hospital day 3 and tube feeds were started at a continuous low rate on hospital day 2 and 3. When we attempted to advance the patient to bolus feeding, the patient did have 1 episode of aspiration that occurred just after he got a full 2 can bolus and then laid down very quickly after the feeding. He did regurgitate versus cough up some tube feeds and a chest x-ray showed mild aspiration pneumonitis at that time but he never did have a fever, white count or oxygen requirement during this aspiration. Of note, the patient after this aspiration event coughed up tube feeds and there was a question if there is a possible tracheoesophageal fistula. He is at risk for it given his radiation history, and GI was consulted to comment on the possibility of this, which they report is reasonable to consider, although very difficult to evaluate as he is unable to swallow barium and in an attempted tube check by inserting barium into the stomach, the patient did not have an aspirative event that could elucidate potential connection between the two. Nonetheless, the treatment for it is by bypassing through PEG or J-tube, which the patient already has, and if he has further recurrent aspiration, conversion to J-tube and further investigation of the possibility of a fistula should be undergone by outpatient GI team with a pediatric scope. Dr. Julio, who is his GI physician, was consulted during this hospitalization as was Dr. Villarreal who removed his sutures on 10/31/19 and felt that the PEG tube is working well. On the day of discharge, the patient had bowel movements, was tolerating bolus feedings for 2 days and felt comfortable and confident to be able to feed at home. 2. Hypertension. The patient's amlodipine was held during this hospitalization , had evidence of labile blood pressure. We discharged him on losartan alone and amlodipine can be added back, although with his recent weight loss and change in nutritional goals and adding to PEG, it may be that losartan would not control his symptoms, can add back at primary care's discretion. 3. Hypothyroidism. His Synthroid was given to him IV initially and then was transferred back over to oral. 4. Aspiration pneumonitis. As per above, he did have this 1 aspirative event. No evidence of pneumonia. No white count, no fevers, and no hypoxia that occurred after a witnessed aspiration event. This sounds like it is chemical pneumonitis. 5. Malnutrition. The patient has chronic malnutrition and that was the reason for PEG tube placement. There was no indication for TPN or PPN. The patient is now tolerating tube feeds at goal. It is important to note that the patient is currently sent home on 2 cans of Jevity per meal with an additional can throughout the day. There is a high calorie food formulation that offers a lower volume that he can do 1 can every 4 hours. This was offered to him through nutrition, although they felt comfortable with their current feeding plan and can alter as needed in the future. LABS AND STUDIES DONE DURING THIS HOSPITALIZATION: Studies included a barium esophagram which was not diagnostic because the patient did not regurgitate any barium to determine if there is a tracheoesophageal fistula. Tube check was done. A chest x-ray was done on 10/30/19 that showed evidence of aspiration pneumonitis and subsequent chest x-ray showed no acute infiltrate. Abdomen and pelvis CT was done on 10/26/19, which showed PEG tube balloon inflated in the stomach that appears unremarkable. Gaseous distention throughout the colon without small bowel obstruction and no other acute disease seen. Dr. Villarreal did evaluate his PEG tube on 10/26/19 and 10/31/19 and felt that it was well healing and no evidence of complications of the recently placed gastrostomy tube. CONSULTANTS DURING THIS TIME: Dr. Julio of GI as well as Dr. Villarreal of Interventional Radiology. Sutures of PEG tube were removed on 10/31/19. LABS ON DAY OF DISCHARGE: White blood cell count 3.7, hemoglobin 13.3, hematocrit 39, and platelets 134. Sodium 137, potassium 4, chloride 101, carbon dioxide 32, anion gap 4, BUN 24, creatinine 0.91. AST 22, ALT 12. Alk phos 52. Influenza A and B were negative. ITEMS TO FOLLOW UP ON STATUS POST DISCHARGE: 1. Hypertension. The patient had labile blood pressure and was sent home on losartan alone and amlodipine was discontinued. Can be started at primary care provider's discretion. 2. Tube feeding goals: The patient currently is able to tolerate bolus tube feeds as per above, and if the volume of the tube feeds at 2 cans per meal remains an issue with symptoms of bloating, the patient can be transferred to a higher calorie smaller volume of food. Furthermore, if the patient aspirates and does not adjust with the feeling of discomfort, the patient may need to consider being converted to a jejunal tube, which Dr. Villarreal says will be happy to do with outpatient consultation as he is familiar with this case. The patient was hesitant to convert directly to a jejunal tube as he was hoping that his ileus would pass, he will be able to tolerate foods, and a jejunal tube offers him only continuous feeding options instead of bolus feeding options which would hinder his quality of life. Overall, his ileus improved. He had a bowel movement on the day of discharge and he was tolerating full goal tube feedings for a day and a half prior to discharge. He and his have a good sense of backup plan, will follow up with their primary care provider in 1 to 2 weeks. TIME SPENT: Sixty five minutes were spent on planning of this discharge with over half of that spent directly at the bedside of the patient providing direct patient care. Plan of care was discussed with the patient and family and they have no further questions. If there are any questions about the care of this patient during this hospitalization, please do not hesitate to reach out and contact me directly, my cell phone is [phone]. [id number]/[facility] #: [id number] MTDFelice
== END 2019-11-01 14:25 | disposition home or self-care (01) | DRG 393 ==
LOC: ED 10:29 → MED 17:40
PROVIDERS: ADMIT Internal Medicine; ATTEND Internal Medicine
DX: K94.23 Gastrostomy malfunction (principal); J69.0 Pneumonitis due to inhalation of food and vomit; K56.7 Ileus, unspecified; E46 Unspecified protein-calorie malnutrition; D69.6 Thrombocytopenia, unspecified; K22.2 Esophageal obstruction; R62.7 Adult failure to thrive; C61 Malignant neoplasm of prostate; C73 Malignant neoplasm of thyroid gland; I10 Essential (primary) hypertension; E78.5 Hyperlipidemia, unspecified; K31.84 Gastroparesis; E89.0 Postprocedural hypothyroidism; F17.200 Nicotine dependence, unspecified, uncomplicated; K91.89 Other postprocedural complications and disorders of digestive system; Z85.810 Personal history of malignant neoplasm of tongue; Z68.20 Body mass index [BMI] 20.0-20.9, adult; Z92.21 Personal history of antineoplastic chemotherapy; Z92.3 Personal history of irradiation; Y92.9 Unspecified place or not applicable; Z79.82 Long term (current) use of aspirin; Z79.899 Other long term (current) drug therapy; Z88.0 Allergy status to penicillin; Z91.048 Other nonmedicinal substance allergy status; Z80.1 Family history of malignant neoplasm of trachea, bronchus and lung
CPT/HCPCS: 36415; 49465; 71045; 71046; 74018; 74177; 80048; 80053; 83605; 85025; 85652; 86140; 87040; 87070; 87077; 87205; 87899; 99285; A9270-GY; J0360; J0456; J0692; J1644; J2765; Q9967

== ENCOUNTER 2019-11-06 10:47 | Inpatient (IN) | payer MEDICARE, OTHER ==
--- NOTE | 2019-11-06 11:01 | ED ---
GI/ HPI - HPI Summary HPI Summary: 69 year old M presenting to [facility] accompanied by his female blockmason with a chief complaint of coughing up formula from his feeding tube, a fever, and a rapid heart rate since last night. The patient rates the pain 0/10 in severity. Symptoms aggravated by formula. Symptoms alleviated by nothing. Patient denies any nausea, vomiting, or diarrhea. The patient's feeding tube was placed two weeks ago. Patient reports that he cannot swallow food secondary to radiation from cancer. Medication list reviewed. Allergy list reviewed. Home Medications Medication Instructions Recorded Confirmed Type Aspirin 81 mg CHEW TAB* 81 mg PEG TUBE 0600 08/06/17 11/06/19 History Levothyroxine TAB* [Synthroid 100 200 mcg PEG TUBE 0500 09/26/19 11/06/19 History MCG TAB*] Levothyroxine TAB* [Synthroid 25 25 mcg PEG TUBE 0500 09/26/19 11/06/19 History MCG TAB*] Losartan TAB* [Cozaar TAB*] 100 mg PEG TUBE 0600 10/26/19 11/06/19 History Multivit-Min/FA/Lycopen/Lutein 1 tab PEG TUBE DAILY 10/26/19 11/06/19 History [Centrum Silver Men Tablet] - History of Current Complaint Chief Complaint: EDGeneral Time Seen by Provider: 11/06/19 10:55 Stated Complaint: FEEDING TUBE LEAKING Hx Obtained From: Patient Onset/Duration: Started Days Ago Timing: Constant Severity: Mild Current Severity: None Pain Intensity: 0 Associated Signs and Symptoms: Positive: Fever, Other: - Rapid heart rate. Negative: Nausea, Vomiting, Diarrhea Aggravating Factor(s): Food Alleviating Factor(s): Nothing - Additional Pertinent History Primary Care Physician: DORCAS - Allergy/Home Medications Allergies/Adverse Reactions: Allergies Allergy/AdvReac Type Severity Reaction Status Date / Time hydrochlorothiazide Allergy Dizziness Verified 11/06/19 10:55 Penicillins Allergy Unknown Verified 11/06/19 10:55 Reaction Details Home Medications: Home Medications Aspirin 81 mg CHEW TAB* 81 mg PEG TUBE 0600 08/06/17 [History Confirmed 11/06/19 ] Levothyroxine TAB* [Synthroid 100 MCG TAB*] 200 mcg PEG TUBE 0500 09/26/19 [ History Confirmed 11/06/19] Levothyroxine TAB* [Synthroid 25 MCG TAB*] 25 mcg PEG TUBE 0500 09/26/19 [ History Confirmed 11/06/19] Losartan TAB* [Cozaar TAB*] 100 mg PEG TUBE 0600 10/26/19 [History Confirmed ] Multivit-Min/FA/Lycopen/Lutein [Centrum Silver Men Tablet] 1 tab PEG TUBE DAILY 10/26/19 [History Confirmed 11/06/19] PMH/Surg Hx/FS Hx/Imm Hx Endocrine/Hematology History: Denies: Hx Diabetes, Hx Thyroid Disease Cardiovascular History: Reports: Hx Hypertension - ON MEDS Denies: Other Cardiovascular Problems/Disorders Respiratory History: Reports: Other Respiratory Problems/Disorders - HX THROAT CANCER Denies: Hx Asthma, Hx Chronic Obstructive Pulmonary Disease (COPD) GI History: Denies: Hx Ulcer Sensory History: Reports: Hx Contacts or Glasses - Reading glasses, Hx Hearing Aid - will plan to take home to be charged on admission, Hx Hearing Problem Opthamlomology History: Reports: Hx Contacts or Glasses - Reading glasses - Cancer History Cancer Type, Location and Year: thyroid cancer. squamous cell carcinoma of tongue. prostate cancer - Surgical History Surgery Procedure, Year, and Place: thyroidectomy. radical neck. inguinal hgernia repair Infectious Disease History: No Infectious Disease History: Denies: Hx Clostridium Difficile, Hx Hepatitis, Hx Human Immunodeficiency Virus (HIV), Hx of Known/Suspected MRSA, Hx Shingles, Hx Tuberculosis, Hx Known/ Suspected VRE, Hx Known/Suspected VRSA, History Other Infectious Disease, Traveled Outside the [place] in Last 30 Days - Family History Known Family History: Positive: Cardiac Disease - Social History Alcohol Use: Occasionally Hx Substance Use: No Substance Use Type: Reports: None Hx Tobacco Use: No Smoking Status (MU): Never Smoked Tobacco Have You Smoked in the Last Year: No Review of Systems Positive: Fever Positive: Other - Rapid heart rate Positive: Cough - Coughing up formula Negative: Vomiting, Diarrhea, Nausea All Other Systems Reviewed And Are Negative: Yes Physical Exam - Summary Physical Exam Summary: Constitutional: Well-developed, Well-nourished, Alert. (-) Distressed Skin: Warm, Dry HENT: Normocephalic; Atraumatic Eyes: Conjunctiva normal Neck: Musculoskeletal ROM normal neck. (-) JVD, (-) Stridor, (-) Tracheal deviation Cardio: Rhythm regular, rate normal, Heart sounds normal; Intact distal pulses; Radial pulses are 2+ and symmetric. (-) Murmur Pulmonary/Chest wall: Effort normal. Oxygen saturation is 82% on room air, coarse breath sounds bilaterally Abd: Soft, (-) tenderness, (-) Distension, (-) Guarding, (-) Rebound, feeding tube in place with no surrounding tenderness Musculoskeletal: (-) Edema Lymph: (-) Cervical adenopathy Neuro: Alert, Oriented x3 Psych: Mood and affect Normal Triage Information Reviewed: Yes Vital Signs On Initial Exam: Initial Vitals Temp Pulse Resp BP Pulse Ox 99.3 F 95 18 163/91 81 11/06/19 10:48 11/06/19 10:48 11/06/19 10:48 11/06/19 10:48 11/06/19 10:48 Vital Signs Reviewed: Yes Procedures - Sedation Patient Received Moderate/Deep Sedation with Procedure: No Diagnostics - Vital Signs Vital Signs Temp Pulse Resp BP Pulse Ox 11/06/19 10:48 99.3 F 95 18 163/91 81 - Laboratory Result Diagrams: 11/06/19 11:50 11/06/19 11:50 Lab Statement: Any lab studies that have been ordered have been reviewed, and results considered in the medical decision making process. - Radiology Chest x-ray Radiology Interpretation Completed By: Radiologist Summary of Radiographic Findings: HYPERINFLATION WITH PERSISTENT PATCHY AIRSPACE DISEASE OF THE RIGHT LUNG BASE. ED physician has reviewed this report. - EKG 12:07 Cardiac Rate: NL - 78 BPM EKG Rhythm: Sinus Rhythm Summary of EKG Findings: No evidence of ischemia. ED physician has reviewed and interpreted this EKG. GIGU Course/Dx - Course Course Of Treatment: Patient is here with coughing up his tube feeds. Patient was 82% on room air. Patient did have coarse breath sounds at the right base that was not name respiratory distress. Patient blood before which notes a ptosis but an elevated CRP. Patient has gastroparesis and is likely regurgitating his feeds. Given patient's fever and shortness of breath, patient was treated empirically cefepime and clindamycin. Patient was also tested for Covid 19. Patient was admitted to the hospital - Diagnoses Provider Diagnoses: Aspiration pneumonia, Hypoxia, Complication of gastrostomy tube - Physician Notifications Discussed Care Of Patient With: Ruddy Villarreal Time Discussed With Above Provider: 12:44 Instructed by Provider To: Other - Discussed with Dr. Villarreal who will have to convert the G-tube to a GJ-tube, but we have to control the patient's pneumonia first. [13:03] Discussed with Dr. Joy who will admit the patient. Discharge ED - Sign-Out/Discharge Documenting (check all that apply): Patient Departure - Discharge Plan Condition: Stable Disposition: ADMITTED TO [facility] Referrals: Ladonna Aly MD [Primary Care Provider] - - Billing Disposition and Condition Condition: STABLE Disposition: Admitted to [facility] - Attestation Statements Document Initiated by Lulúibe: Yes Documenting Scribe: Carina Murphy Provider For Whom Lulúibjennifer is Documenting (Include Credential): Carlton Randolph MD Scribe Attestation: Carina Richardson, scribed for Carlton Randolph MD on 11/06/19 at 1409. Scribe Documentation Reviewed: Yes Provider Attestation: The documentation as recorded by the Carina paredes accurately reflects the service I personally performed and the decisions made by , Carlton Randolph MD Status of Scribe Document: Viewed
[2019-11-06] MEDS ORDERED: NS 0.9% 1000 ML** 1,000 ML IV ONE (11:07)
[2019-11-06] MEDS ORDERED: Cefepime(*) 1 GM in NS 0.9% 50 ML* 50 ML IVPB ONE (12:23)
[2019-11-06 12:40] LABS: ABS Lymphocytes 0.1 10^3/ul (1.0-4.8); ABS Monocytes 0.4 10^3/ul (0-0.8); ABS Neutrophils 5.1 10^3/ul (1.5-7.7); Hematocrit 40 % (42-52); Hemoglobin 13.7 g/dL (14.0-18.0); Lymphocyte % 2.2 %; Mean Corpuscular HGB Conc 35 g/dL (31-36); Mean Corpuscular Hemoglobin 31 pg (27-31); Mean Corpuscular Volume 89 fL (80-94); Mean Platelet Volume 10.3 fL (7.4-10.4); Platelet Count 152 10^3/uL (150-450); Red Blood Count 4.44 10^6 /uL (4.18-5.48); Red Cell Distribution Width 15 % (10-15); White Blood Count 5.6 10^3/uL (3.5-10.8)
[2019-11-06 12:50] LABS: Albumin 4.1 g/dL (3.2-5.2); Albumin/Globulin Ratio 1.1 (1-3); BUN/Creatinine Ratio 17.6 (8-20); C Reactive Protein 85.48 mg/L (<8.01); Calcium 9.4 mg/dL (8.6-10.3); EGFR African American 107.5 (>60); EGFR Non-African American 88.9 (>60); Globulin 3.8 g/dL (2-4); Potassium 3.9 mmol/L (3.5-5.0); Total Bilirubin 0.6 mg/dL (0.2-1.0); Total Protein 7.9 g/dL (6.4-8.9)
[2019-11-06] MEDS ORDERED: NS 0.9% 50 ML* 50 ML ONE (12:57)
[2019-11-06] MEDS ORDERED: Clindamycin 300 MG IVPREMIX* 300 MG/50 ML SDV IV ONE (13:30)
[2019-11-06] MEDS ORDERED: Clindamycin 300 MG IVPREMIX* 300 MG/50 ML SDV IV SCH (13:30)
[2019-11-06 14:07] LABS: Urine Appearance Cloudy; Urine Bilirubin Negative (Negative); Urine Blood Negative (Negative); Urine Color Yellow; Urine Glucose Negative (Negative); Urine Ketones Negative (Negative); Urine Nitrite Negative (Negative); Urine Protein 1+(30 mg/dL) (Negative); Urine Specific Gravity 1.013 (1.010-1.030); Urine Urobilinogen Negative (Negative)
[2019-11-06 14:14] LABS: Urine Bacteria Absent (Absent); Urine Red Blood Cell Trace(0-2/hpf) (Absent); Urine White Blood Cell Trace(0-5/hpf) (Absent)
[2019-11-06] MEDS ORDERED: Acetaminophen TAB* 325 MG PO ONE (14:15)
[2019-11-06] MEDS ORDERED: Enoxaparin(*) 40 MG/0.4 ML SYR SUBCUT SCH (15:00)
[2019-11-06] MEDS ORDERED: Ondansetron INJ* 2 MG/ML VIAL IV PRN (15:20)
[2019-11-06] MEDS ORDERED: Iohexol 350* (CONTRAST) 500 ML MDV IV ONE (15:26)
[2019-11-06] MEDS: NS 0.9% 1000 ML** 1,000 ML IV SCH ×2 (17:48→22:30)
[2019-11-06] MEDS: Pantoprazole IV* 40 MG IV SCH (18:11)
--- NOTE | 2019-11-06 20:18 | HP ---
CC: Dr. Villarreal; Dr. Aly* HISTORY AND PHYSICAL: DATE OF ADMISSION: 11/06/19 PROVIDER: Anyi Enrique NP PRIMARY CARE PROVIDER: Dr. Aly. ATTENDING PHYSICIAN WHILE IN THE HOSPITAL: Dr. Joy* (report dictated by Anyi Enriqeu NP). CHIEF COMPLAINT: Cough and fever. HISTORY OF PRESENT ILLNESS: Mr. Mednoza is a 69-year-old male patient with a history of tongue cancer, status post radiation, chemo, and radical neck dissection. The patient subsequently developed dysphagia and had PEG tube placement. The patient's history also includes hypothyroidism as a result of thyroidectomy resultant to thyroid cancer, hypertension. The patient comes to ED today following a recent discharge on 11/01/19 for aspiration of tube feeding. The patient has continued to aspirate on tube feeds. He has recently developed fever and frequent cough. The patient had a PEG tube placed on by Dr. Villarreal to treat the chronic malnutrition related to inability to swallow following radiation therapy on neck. The patient did subsequently develop ileus. Today in the emergency department, the patient presents with hypoxia on room air. The patient has no history of supplemental oxygen at home. The patient reports that he has been coughing up his Jevity formula following instillation and has recently had fevers at home. The patient is aware that because his ileus is persistent, his PEG tube is going to be changed to J-tube with Dr. Villarreal when fevers resolve, and due to the patient's complaints of shortness of breath and fever, he is being placed on contact precautions pending results of COVID-19 testing. PAST MEDICAL HISTORY: Significant for: 1. Tongue cancer, status post radiation chemotherapy. 2. Thyroid cancer. 3. Hypertension. 4. Hypothyroid. 5. Prostate cancer. 6. Esophageal dilation. PAST SURGICAL HISTORY: 1. Radical neck dissection. 2. Total thyroidectomy. 3. Bilateral inguinal hernia repair. 4. PEG tube placement, 10/24/19. MEDICATIONS: At home include: 1. Losartan 100 mg via PEG tube daily. 2. Levothyroxine 225 mcg via PEG tube daily. 3. Aspirin 81 mg via PEG tube daily. 4. Multivitamin 1 tab via PEG tube daily. ALLERGIES: PENICILLIN and HYDROCHLOROTHIAZIDE. FAMILY HISTORY: Mother at 70 years of age related to lung cancer. Father at 86 related to dementia. SOCIAL HISTORY: The patient is a former smoker. Denies use of alcohol. Denies use of drugs. He is not working. The patient is . Lives with his , Camryn, and she is his surrogate decision maker. REVIEW OF SYSTEMS: There is a documented fever. The patient has history of chronic malnutrition. The patient denies any headaches currently. Denies changes in vision. Denies changes in hearing. Denies runny nose. The patient reports he is unable to swallow at this time. The patient denies chest pain. The patient does report shortness of breath at rest and on exertion. The patient reports frequent cough. The patient denies abdominal pain. Denies nausea, vomiting. Does report 2 bowel movements this morning. Denies dysuria. Denies increased frequency of urination. The patient denies any loss of consciousness. Denies pruritus or rashes. Review of 14 systems was completed. All others negative. PHYSICAL EXAMINATION GENERAL: At this time, Mr. Mendoza is a 69-year-old male patient. He is frail in appearance. Sitting up in bed in the ER. Does not appear to be distressed at this time. VITAL SIGNS: Blood pressure 172/90, heart rate 83, temperature 102.0 rectally, respiratory rate is 20 to 22, O2 saturation 91% on 4 L. HEENT: Head is atraumatic, normocephalic. Eyes: EOMs intact. Sclerae anicteric, not pale. Oral mucosa appears to be slightly dry. There is no oropharyngeal erythema. NECK: Obvious surgical alteration thyroidectomy. Range of motion in the neck is normal. Has negative JVD, negative stridor, and no tracheal deviation. LUNGS: Coarse rhonchi bilaterally. CARDIAC: Heart sounds S1, S2. Regular rate and rhythm. No murmurs, rubs, or gallops noted. ABDOMEN: Soft, flat, nontender. Bowel sounds are present. EXTREMITIES: Pulses 2+ throughout all extremities. Moving all extremities with 5/5 strength. NEUROLOGIC: The patient is awake, alert to self, place, and time. Psychiatric Mental Health Nurse are equal. Tongue is midline. Speech is clear. No gross focal deficits. SKIN: Intact. DIAGNOSTIC STUDIES/LAB DATA: White blood cells 5.6, hemoglobin 13.2, hematocrit 40, platelets 152. Sodium 130, potassium 3.9, chloride 92, CO2 is 31 , BUN 15, creatinine 0.85, calcium 9.4. Lactic acid 1.9. CRP is 85.48. Awaiting results of COVID-19 testing. EKG: Normal sinus rhythm. Chest x-ray showed patchy hyperinflation with persistent patchy airspace disease of the right lung base. ASSESSMENT AND PLAN: Mr. Mendoza is a 69-year-old male patient coming to the emergency room today with complaints of cough and fever. We were asked to evaluate because of fever, shortness of breath, cough. The patient will be admitted under inpatient status for: 1. Aspiration pneumonia: The patient will be on clindamycin 600 mg IV q.8 hours and cefepime 2 g IV q.8 hours for suspected aspiration of Jevity into lungs, also related to the complaints the patient is reporting. The patient will be placed on contact precaution until COVID-19 ruled out. 2. Status post percutaneous endoscopic gastrostomy placement. The patient will receive Jevity total of 7 cans daily, 2 at breakfast, 2 at lunch, 2 at dinner, and half a can at 10 a.m. and half a can at 2 p.m. 3. Hypertension: The patient was previously prescribed amlodipine but had labile blood pressures, so amlodipine was stopped and changed to losartan 100 mg via PEG tube every day. We will continue losartan at this time. 4. Hypothyroidism: The patient will continue 225 mcg of levothyroxine via PEG tube throughout the stay. 5. Hypoxia: The patient will receive CTA to rule out pulmonary embolism and supplemental oxygen will remain on at all times to maintain oxygen saturation greater than 90%. 6. FEN: As discussed, the patient will receive Jevity. 7. Code status: The patient is full code. The patient's surrogate decision maker is his , Camryn. 8. DVT prophylaxis: The patient will receive Lovenox 40 mg subcutaneously every day. SCDs will be on at all times while on bed. TIME SPENT: Approximately 60 minutes on this admission, more than half the time was spent [id number] with the patient during interview and physical exam , the other half the time was spent going over the plan of care and implementing plan of care. I did discuss plan of care with my attending, Dr. Joy, and he is in agreement. ANYI ENRIQUE, DENTAL HYGIENE TEACHER [id number]/[facility] #: [id number] [facility] HOSPITALFelice
[2019-11-06] MEDS ORDERED: DEXTROSE IV SCH (21:00)
[2019-11-06] MEDS ORDERED: CEFEPIME IV SCH (21:00)
[2019-11-06] MEDS: Cefepime 2 GM in Dextrose(*) 2 GM/50 ML BAG IV SCH (21:11)
[2019-11-06 21:33] LABS: Influenza A Molecular POSITIVE (Negative)
[2019-11-06] MEDS ORDERED: Oseltamivir CAP* 75 MG CAP PO SCH (21:45)
[2019-11-06] MEDS: Clindamycin 600 MG/D5W BAG(*) 600 MG/50 ML BAG IV SCH (22:30)
[2019-11-06] MEDS: Oseltamivir SUSP* ORALSYR 6 MG/ML SCH (22:53)
[2019-11-07] MEDS ORDERED: NS 0.9% 1000 ML** 1,000 ML IV SCH
[2019-11-07] MEDS ORDERED: Levothyroxine TAB* 25 MCG TAB PEG TUBE SCH (05:00)
[2019-11-07] MEDS ORDERED: Levothyroxine TAB* 100 MCG TAB PEG TUBE SCH (05:00)
[2019-11-07] MEDS: Cefepime 2 GM in Dextrose(*) 2 GM/50 ML BAG IV SCH ×3 (05:24→22:33)
[2019-11-07] MEDS ORDERED: Losartan TAB* 25 MG PEG TUBE SCH (06:00)
[2019-11-07] MEDS ORDERED: Aspirin 81 mg CHEW TAB* 81 MG TAB.CHEW PEG TUBE SCH (06:00)
[2019-11-07] MEDS: Clindamycin 600 MG/D5W BAG(*) 600 MG/50 ML BAG IV SCH ×3 (06:14→23:07)
--- NOTE | 2019-11-07 08:49 | PN ---
Subjective Date of Service: 11/07/19 Interval History: Pt is feeling better today. His cough has settled down. After his last discharge on 11/01/19 the patient states he has had no issues with coughing up/ aspirating his tube feed. He thinks he started aspirating tube feed again yesterday when his cough became quite severe and vigorous. Objective Active Medications: Aspirin (Aspirin 81 Mg Chew Tab*) 81 mg PEG TUBE 0600 [facility] Last Admin: 11/07/19 05:25 Dose: Not Given Enoxaparin Sodium (Lovenox(*)) 40 mg SUBCUT Q24H [facility] Last Admin: 11/06/19 18:10 Dose: 40 mg Sodium Chloride (Ns 0.9% 1000 Ml) 1,000 mls @ 250 mls/hr IV PER RATE [facility] Stop: 11/07/19 18:14 Last Admin: 11/06/19 22:30 Dose: 250 mls/hr Clindamycin HCl/Dextrose (Cleocin 600 Mg/50 Ml(*)) 600 mg in 50 mls @ 100 mls/ hr IV Q8HR [facility] Last Admin: 11/07/19 06:14 Dose: 100 mls/hr Sodium Chloride (Ns 0.9% 1000 Ml) 1,000 mls @ 100 mls/hr IV PER RATE [facility] Last Admin: 11/07/19 03:02 Dose: 100 mls/hr Cefepime HCl (Maxipime 2 Gm In Dextrose Duplex (*)) 2 gm in 50 mls @ 100 mls/ hr IV Q8H [facility] Last Admin: 11/07/19 05:24 Dose: 100 mls/hr Levothyroxine Sodium (Synthroid Tab*) 200 mcg PEG TUBE 0500 [facility] Last Admin: 11/07/19 05:25 Dose: 200 mcg Levothyroxine Sodium (Synthroid Tab*) 25 mcg PEG TUBE 0500 [facility] Last Admin: 11/07/19 05:25 Dose: 25 mcg Losartan Potassium (Cozaar Tab*) 100 mg PEG TUBE 0600 [facility] Last Admin: 11/07/19 06:08 Dose: 100 mg Multivitamins/Minerals (Theragran/Minerals Tab*) 1 tab PO DAILY [facility] Ondansetron HCl (Zofran Inj*) 4 mg IV Q6H PRN PRN Reason: NAUSEA Oseltamivir Phosphate (Tamiflu Susp* Oralsyr) 75 mg .SEE ORDER BID FRAN Stop: 11/11/19 09:01 Last Admin: 11/06/19 22:53 Dose: 75 mg Pantoprazole Sodium (Protonix Iv*) 40 mg IV Q24H [facility] Last Admin: 11/06/19 18:11 Dose: 40 mg Vital Signs - 8 hr 11/07/19 02:38 Temperature 98.3 F Pulse Rate 56 Respiratory 20 Rate Blood Pressure 129/72 (mmHg) O2 Sat by Pulse 97 Oximetry Oxygen Devices in Use Now: Nasal Cannula - 2L-97% Appearance: Elderly male sitting up in bed, NAD Eyes: No Scleral Icterus Ears/Nose/Mouth/Throat: Mucous Membranes Moist Respiratory: Symmetrical Chest Expansion and Respiratory Effort, Clear to Auscultation - slightly diminished breath sounds Cardiovascular: NL Sounds; No Murmurs; No JVD, RRR, No Edema Abdominal: NL Sounds; No Tenderness; No Distention Extremities: No Clubbing, Cyanosis Skin: No Nodules or Sclerosis Neurological: Alert and Oriented x 3 Result Diagrams: 11/06/19 11:50 11/06/19 11:50 Microbiology and Other Data: Microbiology 11/06/19 11:55 Legionella Urinary Antigen - Final Urine Negative Legionella Antigen Streptococcus pneumoniae Ag Screen - Final Negative S. pneumo Antigen Assess/Plan/Problems-Billing Mr Mendoza is a 69 yo M who has a h/o head/neck cancer s/p XRT/chemo/neck dissection, thyroid cancer, prostate cancer, HTN and hypothyroidism who had a G tube placed by IR on 10/24/19 for chronic dysphagia who developed cough and SOB as well as aspirating tube feed on 11/06/19 and presented to the ER for evaluation. He was found to be positive for influenza and is being ruled out for COVID-19. - Patient Problems (1) Influenza A Current Visit: Yes Status: Acute Code(s): J10.1 - FLU DUE TO OTH IDENT INFLUENZA VIRUS W OTH RESP MANIFEST SNOMED Code(s): 244693411 Comment: Pt has tested positive for influenza A. He will continue on tamiflu for 10 doses. His respiratory status is improved and he is requiring less supplemental O2. COVID-19 PCR pending. (2) Aspiration pneumonitis Current Visit: Yes Status: Resolved Code(s): J69.0 - PNEUMONITIS DUE TO INHALATION OF FOOD AND VOMIT SNOMED Code(s): 201649610 Comment: There is no evidence of pneumonia given normal WBC count and lack of discrete infiltrate on CXR. (3) Hypertension Current Visit: Yes Status: Acute Code(s): I10 - ESSENTIAL (PRIMARY) HYPERTENSION SNOMED Code(s): 78016281 Comment: BP is under good control on losartan 100mg daily. (4) Hypothyroidism Current Visit: Yes Status: Acute Code(s): E03.9 - HYPOTHYROIDISM, UNSPECIFIED SNOMED Code(s): 57300515 Comment: Continue levothyroxine 225mcg per PEG. (5) DVT prophylaxis Current Visit: Yes Status: Acute Code(s): Z29.9 - ENCOUNTER FOR PROPHYLACTIC MEASURES, UNSPECIFIED SNOMED Code(s): 801874043 Comment: lovenox (6) Full code status Current Visit: Yes Status: Acute Code(s): Z78.9 - OTHER SPECIFIED HEALTH STATUS SNOMED Code(s): 512043225
[2019-11-07] MEDS ORDERED: Multivitamins/Minerals TAB PO SCH (09:00)
[2019-11-07 10:07] LABS: ABS Lymphocytes 0.4 10^3/ul (1.0-4.8); ABS Monocytes 0.2 10^3/ul (0-0.8); ABS Neutrophils 2.9 10^3/ul (1.5-7.7); Hematocrit 39 % (42-52); Lymphocyte % 10.8 %; Mean Corpuscular HGB Conc 34 g/dL (31-36); Mean Corpuscular Hemoglobin 30 pg (27-31); Mean Corpuscular Volume 90 fL (80-94); Mean Platelet Volume 9.5 fL (7.4-10.4); Nucleated Red Blood Cells % 0.1; Platelet Count 158 10^3/uL (150-450); Red Blood Count 4.31 10^6 /uL (4.18-5.48); Red Cell Distribution Width 15 % (10-15); White Blood Count 3.5 10^3/uL (3.5-10.8)
[2019-11-07 10:27] LABS: BUN/Creatinine Ratio 24.2 (8-20); EGFR African American 99.4 (>60); EGFR Non-African American 82.1 (>60); Magnesium 1.8 mg/dL (1.9-2.7); Potassium 3.4 mmol/L (3.5-5.0); Total Bilirubin 0.4 mg/dL (0.2-1.0)
[2019-11-07] MEDS: Oseltamivir SUSP* ORALSYR 6 MG/ML SCH ×2 (10:44→22:33)
[2019-11-07] MEDS: Pantoprazole IV* 40 MG IV SCH (14:27)
[2019-11-07] MEDS ORDERED: Acetaminophen ADULT LIQ* 650 MG/20.3 ML UDC PO PRN (16:35)
[2019-11-07] MEDS ORDERED: Albuterol 2.5 MG/3 ML NEB.SOL* (0.083%) INH PRN (20:49)
[2019-11-07] MEDS ORDERED: Albuterol/Ipratropium NEB.SOL* Albuterol 2.5 MG/Ipratropium 0.5 MG 3 ML INH SCH (21:00)
--- NOTE | 2019-11-07 21:20 | PN ---
Hospitalist Progress Note Date of Service: 11/07/19 Called to bedside for acute episode of hypoxia. Pt now on 15 l oxy mask o2 sat 88-87 percent. On evaluation coughing up what appears to be tube feed. The nurse was just giving this via peg. Suspect the patient may have aspirated. On lung exam his wheezing in the upper lobes. Will obtain cxr and will transfer to icu for vapotherm. updated, If vapotherm fails low threshold for intubation. Cxr ordered for now and cxr in am. Will stop all feeds and meds via peg tube.,
[2019-11-07] MEDS: Heparin VIAL(*) 5000 UNITS/ML VIAL (FIVE THOUSAND) SUBCUT SCH (22:33)
[2019-11-07] MEDS: Albuterol/Ipratropium NEB.SOL* Albuterol 2.5 MG/Ipratropium 0.5 MG 3 ML INH SCH (23:37)
[2019-11-08] MEDS ORDERED: Acetaminophen ADULT LIQ* 650 MG/20.3 ML UDC PEG TUBE ONE (01:21)
[2019-11-08] MEDS ORDERED: Acetaminophen ADULT LIQ* 650 MG/20.3 ML UDC ONE (01:27)
[2019-11-08] MEDS: NS 0.9% 1000 ML** 1,000 ML IV SCH ×2 (01:33→20:35)
[2019-11-08] MEDS: Cefepime 2 GM in Dextrose(*) 2 GM/50 ML BAG IV SCH ×3 (05:51→20:35)
[2019-11-08] MEDS: Levothyroxine INJ* 100 MCG/5 ML VIAL IV SCH (05:51)
[2019-11-08 06:19] LABS: ABS Lymphocytes 0.6 10^3/ul (1.0-4.8); ABS Monocytes 0.3 10^3/ul (0-0.8); ABS Neutrophils 5.6 10^3/ul (1.5-7.7); Hematocrit 39 % (42-52); Hemoglobin 13.3 g/dL (14.0-18.0); Lymphocyte % 8.6 %; Mean Corpuscular HGB Conc 34 g/dL (31-36); Mean Corpuscular Hemoglobin 30 pg (27-31); Mean Corpuscular Volume 89 fL (80-94); Mean Platelet Volume 9.4 fL (7.4-10.4); Nucleated Red Blood Cells % 0.1; Platelet Count 147 10^3/uL (150-450); Red Cell Distribution Width 15 % (10-15); White Blood Count 6.5 10^3/uL (3.5-10.8)
[2019-11-08 06:39] LABS: ALT 21 U/L (7-52); Albumin 3.1 g/dL (3.2-5.2); Alkaline Phosphatase 35 U/L (34-104); BUN/Creatinine Ratio 23.7 (8-20); Blood Urea Nitrogen 18 mg/dL (6-24); CO2 Carbon Dioxide 23 mmol/L (22-32); Calcium 7.3 mg/dL (8.6-10.3); Chloride 97 mmol/L (101-111); EGFR African American 122.3 (>60); EGFR Non-African American 101.1 (>60); Globulin 3.1 g/dL (2-4); Glucose 92 mg/dL (70-100); Sodium 125 mmol/L (135-145); Total Protein 6.2 g/dL (6.4-8.9)
[2019-11-08 06:47] LABS: Anion Gap 5 mmol/L (2-11)
[2019-11-08] MEDS: Clindamycin 600 MG/D5W BAG(*) 600 MG/50 ML BAG IV SCH ×2 (07:45→14:12)
[2019-11-08] MEDS: Albuterol/Ipratropium NEB.SOL* Albuterol 2.5 MG/Ipratropium 0.5 MG 3 ML INH SCH ×2 (07:58→09:26)
[2019-11-08] MEDS: Heparin VIAL(*) 5000 UNITS/ML VIAL (FIVE THOUSAND) SUBCUT SCH ×2 (08:05→21:52)
[2019-11-08] MEDS: Oseltamivir SUSP* ORALSYR 6 MG/ML SCH ×2 (08:23→21:57)
[2019-11-08 12:50] LABS: BUN/Creatinine Ratio 27.8 (8-20); EGFR African American 289.8 (>60); EGFR Non-African American 239.5 (>60)
[2019-11-08 12:59] LABS: Potassium 2.3 mmol/L (3.5-5.0)
[2019-11-08 14:15] LABS: BUN/Creatinine Ratio 20.3 (8-20); Calcium 7.8 mg/dL (8.6-10.3); EGFR African American 126.2 (>60); EGFR Non-African American 104.3 (>60); Potassium 3.6 mmol/L (3.5-5.0)
--- NOTE | 2019-11-08 16:22 | PN ---
Progress Note - Progress Note Date of Service: 11/08/19 Note: Progress Note -- Critical Care 24 hour events/significant events: - Transferred to ICU after concern of aspiration and desaturation - Was placed on vapotherm - Nothing per PEG since he appears to be aspirating tube feeds - This morning he was weaned to NC - Patient's only complaint is that he is tired. He did not sleep all night while on vapotherm because of the noise. ROS: negative except for pertinent positives mentioned above Tele: NSR Vitals: Vital Signs 11/07/19 11/07/19 11/07/19 20:00 20:25 21:00 Temperature 98.1 F Pulse Rate 95 Respiratory 26 36 Rate Blood Pressure 174/101 (mmHg) O2 Sat by Pulse 81 83 Oximetry 11/07/19 11/07/19 11/07/19 21:44 21:50 21:53 Temperature 101 F Pulse Rate 94 84 82 Respiratory 25 Rate Blood Pressure 153/83 153/83 (mmHg) O2 Sat by Pulse 92 91 93 Oximetry 11/07/19 11/07/19 11/07/19 22:00 22:30 23:00 Temperature Pulse Rate 86 69 82 Respiratory 26 24 32 Rate Blood Pressure 173/98 136/73 171/91 (mmHg) O2 Sat by Pulse 96 94 95 Oximetry 11/07/19 11/07/19 11/08/19 23:30 23:39 00:00 Temperature Pulse Rate 78 78 74 Respiratory 19 20 25 Rate Blood Pressure 196/97 150/82 (mmHg) O2 Sat by Pulse 96 96 99 Oximetry 11/08/19 11/08/19 11/08/19 00:09 00:30 01:00 Temperature Pulse Rate 72 74 80 Respiratory 19 20 19 Rate Blood Pressure 182/97 202/106 (mmHg) O2 Sat by Pulse 98 100 100 Oximetry 11/08/19 11/08/19 11/08/19 01:12 01:20 01:22 Temperature 103.1 F Pulse Rate 83 81 Respiratory 25 17 Rate Blood Pressure 204/113 170/101 (mmHg) O2 Sat by Pulse 99 97 Oximetry 11/08/19 11/08/19 11/08/19 01:30 02:00 02:30 Temperature Pulse Rate 80 76 69 Respiratory 20 24 26 Rate Blood Pressure 156/91 108/64 (mmHg) O2 Sat by Pulse 97 95 98 Oximetry 11/08/19 11/08/19 11/08/19 03:00 03:30 04:00 Temperature 100.4 F Pulse Rate 73 65 60 Respiratory 23 23 24 Rate Blood Pressure 92/55 121/70 83/49 (mmHg) O2 Sat by Pulse 95 98 95 Oximetry 11/08/19 11/08/19 11/08/19 04:07 04:15 04:23 Temperature Pulse Rate 59 59 70 Respiratory 24 23 25 Rate Blood Pressure 82/47 82/47 140/78 (mmHg) O2 Sat by Pulse 95 95 98 Oximetry 11/08/19 11/08/19 11/08/19 05:00 06:00 06:08 Temperature Pulse Rate 72 64 68 Respiratory 22 12 18 Rate Blood Pressure 158/81 102/76 (mmHg) O2 Sat by Pulse 99 98 99 Oximetry 11/08/19 11/08/19 11/08/19 06:45 07:00 07:03 Temperature Pulse Rate 59 58 57 Respiratory 18 19 21 Rate Blood Pressure 119/61 94/54 94/53 (mmHg) O2 Sat by Pulse 97 96 95 Oximetry 11/08/19 11/08/19 11/08/19 07:30 07:56 08:00 Temperature 99.9 F Pulse Rate 65 65 Respiratory 26 26 19 Rate Blood Pressure 177/94 115/66 (mmHg) O2 Sat by Pulse 99 99 Oximetry 11/08/19 11/08/19 11/08/19 08:30 09:00 09:30 Temperature Pulse Rate 62 59 62 Respiratory 18 20 20 Rate Blood Pressure 120/69 114/67 108/61 (mmHg) O2 Sat by Pulse 99 98 92 Oximetry 11/08/19 14:30 Temperature 98.3 F Pulse Rate 59 Respiratory 18 Rate Blood Pressure 148/79 (mmHg) O2 Sat by Pulse 96 Oximetry Intake and Output Last 24 Hours 11/06/19 11/07/19 11/08/19 11/09/19 06:59 06:59 06:59 06:59 Intake Total 3367 2180 496 Output Total 710 3710 225 Balance 2717 -620 271 Weight 142 lb 14.4 oz 140 lb Intake: IV Fluids 3227 830 496 ABX - CEFEPIME 50 115 ABX - CLINDAMYCIN 50 NS (0.9%) 2227 730 381 IVPB 100 ABX - CEFEPIME 50 ABX - CLINDAMYCIN 50 Oral 0 0 Tube Feeding 1070 Tube Feeding Flush Amount 40 280 Output: Urine 650 1300 225 Fox 1500 Other: Date of Last Bowel Movement # Bowel Movements 0 1 Estimated Stool Amount Large # Voids 2 O2: 4L NC Infusions: NS @ 75 Medications: Acetaminophen (Tylenol 650 Mg Supp) 650 mg ND Q4H PRN PRN Reason: FEVER/MILD PAIN Albuterol (Ventolin 2.5 Mg/3 Ml Neb.Fernanda*) 2.5 mg INH Q2H PRN PRN Reason: SOB/WHEEZING Heparin Sodium (Porcine) (Heparin Vial(*)) 5,000 units SUBCUT Q12HR [facility] Last Admin: 11/08/19 08:05 Dose: 5,000 units Clindamycin HCl/Dextrose (Cleocin 600 Mg/50 Ml(*)) 600 mg in 50 mls @ 100 mls/ hr IV Q8HR [facility] Stop: 11/08/19 21:59 Last Admin: 11/08/19 14:12 Dose: 100 mls/hr Cefepime HCl (Maxipime 2 Gm In Dextrose Duplex (*)) 2 gm in 50 mls @ 100 mls/ hr IV Q8H [facility] Last Admin: 11/08/19 12:12 Dose: 100 mls/hr Sodium Chloride (Ns 0.9% 1000 Ml) 1,000 mls @ 75 mls/hr IV PER RATE [facility] Last Admin: 11/08/19 01:33 Dose: 75 mls/hr Clindamycin HCl (Cleocin 600 Mg/50 Ml(*)) 600 mg in 50 mls @ 100 mls/hr IV Q8H [facility] Levothyroxine Sodium (Synthroid Inj*) 110 mcg IV 0600 [facility] Last Admin: 11/08/19 05:51 Dose: 110 mcg Ondansetron HCl (Zofran Inj*) 4 mg IV Q6H PRN PRN Reason: NAUSEA Oseltamivir Phosphate (Tamiflu Susp* Oralsyr) 75 mg .SEE ORDER BID [facility] Stop: 11/11/19 09:01 Last Admin: 11/08/19 08:23 Dose: Not Given Pantoprazole Sodium (Protonix Iv*) 40 mg IV Q24H [facility] Last Admin: 11/07/19 14:27 Dose: 40 mg Physical Exam: Constitutional: awake, alert, no distress, no diaphoresis, frail appearing Head: normocephalic, atraumatic Eyes: no pallor, no icterus ENT: moist mucous membranes Neck: soft, supple, no jvd, no stridor CVS: normal rate, regular, no murmur Chest/Resp: bilateral air entry, diminished in the bases, no rhales, no wheeze, no rhonchi, no acc muscle use Abdomen/GI: soft, nontender, nondistended, BS+ Ext/Msk: warm, pulses+, no edema Skin: intact, warm Neuro: awake, alert, orientedx3, moving all extremities, no gross focal deficit Psych: normal affect Labs: Laboratory Results - last 24 hr 11/08/19 11/08/19 11/08/19 05:34 05:34 12:00 WBC 6.5 RBC 4.40 Hgb 13.3 L Hct 39 L MCV 89 MCH 30 MCHC 34 RDW 15 Plt Count 147 L MPV 9.4 Neut % (Auto) 86.6 Lymph % (Auto) 8.6 Humphreys % (Auto) 4.7 Eos % (Auto) 0.0 Baso % (Auto) 0.1 Absolute Neuts (auto) 5.6 Absolute Lymphs (auto) 0.6 L Absolute Monos (auto) 0.3 Absolute Eos (auto) 0.0 Absolute Basos (auto) 0.0 Absolute Nucleated RBC 0.0 Nucleated RBC % 0.1 Sodium 125 L 138 D Potassium TNP 2.3 L* Chloride 97 L 118 H Carbon Dioxide 23 16 L Anion Gap 5 4 BUN 18 10 Creatinine 0.76 0.36 L Est GFR ( Amer) 122.3 289.8 Est GFR (Non-Af Amer) 101.1 239.5 BUN/Creatinine Ratio 23.7 H 27.8 H Glucose 92 58 L POC Glucose (mg/dL) Calcium 7.3 L 4.0 L* Total Bilirubin 0.60 AST TNP ALT 21 Alkaline Phosphatase 35 Total Protein 6.2 L Albumin 3.1 L Globulin 3.1 Albumin/Globulin Ratio 1.0 11/08/19 11/08/19 13:05 13:10 WBC RBC Hgb Hct MCV MCH MCHC RDW Plt Count MPV Neut % (Auto) Lymph % (Auto) Humphreys % (Auto) Eos % (Auto) Baso % (Auto) Absolute Neuts (auto) Absolute Lymphs (auto) Absolute Monos (auto) Absolute Eos (auto) Absolute Basos (auto) Absolute Nucleated RBC Nucleated RBC % Sodium 133 L Potassium 3.6 Chloride 99 L Carbon Dioxide 29 Anion Gap 5 BUN 15 Creatinine 0.74 Est GFR ( Amer) 126.2 Est GFR (Non-Af Amer) 104.3 BUN/Creatinine Ratio 20.3 H Glucose 89 POC Glucose (mg/dL) 104 H Calcium 7.8 L Total Bilirubin AST ALT Alkaline Phosphatase Total Protein Albumin Globulin Albumin/Globulin Ratio Imaging: Chest xray 11/07: persistent left pleural effusion with improved aeration of right lung base Chest xray 11/06: Hyperinflation with persistent patchy airspace disease of the right lung base and interval development of a small left pleural effusion Assessment: 69M with known medical history of tongue cancer, s/p chemo/radiation /radical neck dissection, now s/p PEG, thyroid cancer s/p thyroidectomy now with hypothyroidism, and hypertension, who initially presented to hospital with complaints of fevers, coughing, and shortness of breath. PEG placed 10/23, already a plan to change to Jtube. Found to be flu A positive. He was transferred to ICU overnight on 11/06 for acute episode of hypoxia. Noted to be coughing up what appeared to be tube feed and there was a concern for aspiration. On morning of 11/07, patient was able to be weaned down quickly to 4L NC. - Aspiration - Acute hypoxic respiratory failure - Fevers Plan: Neuro- - No active issues -Delirium prec; avoid BDZ CVS- - Labile BP: chronic. Will continue to hold home BP medications d/t lability of pressures. Will want to avoid hypotension. Consider PRN antihypertensives if persistently above goal -Maintain MAP>65 as long as SBP<160 Resp- - Acute hypoxic respiratory failure: likely d/t episode of aspiration. Doing well on nasal cannula -Wean Fio2 to keep sat>92% -Bronchodilators PRN, Aspiration prec, Pulmonary Toilet ID- - Febrile yesterday. Likely concern for aspiration PNA. Continue medications and follow up on barlow cultures - Goal temp<101 - WBC WNL GI- -Nutrition: NPO, no feeding through G tube. Unsure what imaging/swallow studies patient has completed, unsure about esophageal sphincter tone. - Patient may require PPN -GI prophylaxis PPI Renal- -strict I/O, replete electrolytes as indicated - K low yesterday and inaccurate read this AM. Recheck was 3.6. No need to replace at this time. -fox as indicated Heme- - Subq heparin for DVT prophylaxis Endo-Maintain BG<200, insulin protocol as needed Musculsk- pressure ulcer prophylaxis. OOB as tolerated Wounds- none Nutrition- NPO DVT prophylaxis:subq heparin GI prophylaxis: PPI Fox Catheter: Disposition: Patient is stable for floor transfer Patient clinical status: stable Code Status: full
[2019-11-08] MEDS: Pantoprazole IV* 40 MG IV SCH (17:55)
[2019-11-08] MEDS: Clindamycin 600 MG/NS BAG(*) 600 MG/50 ML BAG IV SCH (21:52)
[2019-11-09] MEDS: Cefepime 2 GM in Dextrose(*) 2 GM/50 ML BAG IV SCH ×2 (04:46→12:46)
[2019-11-09 04:59] LABS: ABS Lymphocytes 0.7 10^3/ul (1.0-4.8); ABS Monocytes 0.3 10^3/ul (0-0.8); Eosinophil % 0.1 %; Hematocrit 38 % (42-52); Hemoglobin 12.8 g/dL (14.0-18.0); Lymphocyte % 22.4 %; Mean Corpuscular HGB Conc 34 g/dL (31-36); Mean Corpuscular Hemoglobin 30 pg (27-31); Mean Corpuscular Volume 89 fL (80-94); Mean Platelet Volume 9.4 fL (7.4-10.4); Platelet Count 145 10^3/uL (150-450); Red Blood Count 4.24 10^6 /uL (4.18-5.48); Red Cell Distribution Width 15 % (10-15)
[2019-11-09 05:16] LABS: Albumin 2.8 g/dL (3.2-5.2); Albumin/Globulin Ratio 0.9 (1-3); BUN/Creatinine Ratio 19.5 (8-20); Calcium 8.1 mg/dL (8.6-10.3); EGFR African American 104.7 (>60); EGFR Non-African American 86.5 (>60); Globulin 3.2 g/dL (2-4); Potassium 3.4 mmol/L (3.5-5.0); Total Bilirubin 0.4 mg/dL (0.2-1.0)
[2019-11-09] MEDS: Levothyroxine INJ* 100 MCG/5 ML VIAL IV SCH (05:42)
[2019-11-09] MEDS: Clindamycin 600 MG/NS BAG(*) 600 MG/50 ML BAG IV SCH ×3 (05:42→21:27)
[2019-11-09] MEDS: Oseltamivir SUSP* ORALSYR 6 MG/ML SCH ×2 (08:22→21:25)
[2019-11-09] MEDS: Heparin VIAL(*) 5000 UNITS/ML VIAL (FIVE THOUSAND) SUBCUT SCH ×2 (10:20→21:27)
--- NOTE | 2019-11-09 14:15 | PN ---
Subjective Date of Service: 11/09/19 Interval History: Pt is feeling ok. He is worried about not receiving tamiflu for being flu positive. His cough is less. He tells me that his has also come back positive for flu. No BM for 2 days. Objective Active Medications: Acetaminophen (Tylenol 650 Mg Supp) 650 mg GA Q4H PRN PRN Reason: FEVER/MILD PAIN Albuterol (Ventolin 2.5 Mg/3 Ml Neb.Fernanda*) 2.5 mg INH Q2H PRN PRN Reason: SOB/WHEEZING Heparin Sodium (Porcine) (Heparin Vial(*)) 5,000 units SUBCUT Q12HR [facility] Last Admin: 11/09/19 10:20 Dose: 5,000 units Cefepime HCl (Maxipime 2 Gm In Dextrose Duplex (*)) 2 gm in 50 mls @ 100 mls/ hr IV Q8H [facility] Last Admin: 11/09/19 12:46 Dose: 100 mls/hr Sodium Chloride (Ns 0.9% 1000 Ml) 1,000 mls @ 75 mls/hr IV PER RATE [facility] Last Admin: 11/08/19 20:35 Dose: 75 mls/hr Clindamycin HCl (Cleocin 600 Mg/50 Ml(*)) 600 mg in 50 mls @ 100 mls/hr IV Q8H [facility] Last Admin: 11/09/19 13:36 Dose: 100 mls/hr Levothyroxine Sodium (Synthroid Inj*) 110 mcg IV 0600 [facility] Last Admin: 11/09/19 05:42 Dose: 110 mcg Ondansetron HCl (Zofran Inj*) 4 mg IV Q6H PRN PRN Reason: NAUSEA Oseltamivir Phosphate (Tamiflu Susp* Oralsyr) 75 mg .SEE ORDER BID [facility] Stop: 11/11/19 09:01 Last Admin: 11/09/19 08:22 Dose: Not Given Pantoprazole Sodium (Protonix Iv*) 40 mg IV Q24H [facility] Last Admin: 11/08/19 17:55 Dose: 40 mg Vital Signs - 8 hr 11/09/19 11/09/19 11/09/19 08:20 10:36 12:01 Temperature 98.6 F 98.4 F Pulse Rate 56 52 Respiratory 24 22 20 Rate Blood Pressure 142/67 150/67 (mmHg) O2 Sat by Pulse 96 95 Oximetry Oxygen Devices in Use Now: Nasal Cannula Appearance: Elderly male sitting up in bed, NAD Eyes: No Scleral Icterus Ears/Nose/Mouth/Throat: Mucous Membranes Moist Respiratory: Symmetrical Chest Expansion and Respiratory Effort, Clear to Auscultation Cardiovascular: NL Sounds; No Murmurs; No JVD, RRR, No Edema Abdominal: NL Sounds; No Tenderness; No Distention Extremities: No Clubbing, Cyanosis Skin: No Nodules or Sclerosis Neurological: Alert and Oriented x 3 Result Diagrams: 11/09/19 04:39 11/09/19 04:39 Microbiology and Other Data: Microbiology 11/06/19 11:55 Legionella Urinary Antigen - Final Urine Negative Legionella Antigen Streptococcus pneumoniae Ag Screen - Final Negative S. pneumo Antigen Assess/Plan/Problems-Billing Mr Mendoza is a 69 yo M who has a h/o head/neck cancer s/p XRT/chemo/neck dissection, thyroid cancer, prostate cancer, HTN and hypothyroidism who had a G tube placed by IR on 10/24/19 for chronic dysphagia who developed cough and SOB as well as aspirating tube feed on 11/06/19 and presented to the ER for evaluation. He was found to be positive for influenza and is being ruled out for COVID-19. - Patient Problems (1) Influenza A Current Visit: Yes Status: Acute Code(s): J10.1 - FLU DUE TO OTH IDENT INFLUENZA VIRUS W OTH RESP MANIFEST SNOMED Code(s): 251634229 Comment: Pt has tested positive for influenza A. He will continue on tamiflu for 10 doses (held 3 doses due to nothing per tube order when he aspirated the tube feed 2 nights ago). His respiratory status is improved and he is requiring less supplemental O2. COVID-19 PCR pending. (2) Aspiration pneumonitis Current Visit: Yes Status: Resolved Code(s): J69.0 - PNEUMONITIS DUE TO INHALATION OF FOOD AND VOMIT SNOMED Code(s): 558789465 Comment: There is no evidence of pneumonia given normal WBC count and lack of discrete infiltrate on CXR. Stop cefepime and continue clindamycin empirically while awaiting full recovery. (3) Hypertension Current Visit: Yes Status: Acute Code(s): I10 - ESSENTIAL (PRIMARY) HYPERTENSION SNOMED Code(s): 64967646 Comment: BP is moderately elevated. Will resume losartan 100mg daily. (4) Hypothyroidism Current Visit: Yes Status: Acute Code(s): E03.9 - HYPOTHYROIDISM, UNSPECIFIED SNOMED Code(s): 70644923 Comment: Continue levothyroxine 225mcg per PEG. (5) DVT prophylaxis Current Visit: Yes Status: Acute Code(s): Z29.9 - ENCOUNTER FOR PROPHYLACTIC MEASURES, UNSPECIFIED SNOMED Code(s): 037512026 Comment: SQ heparin (6) Full code status Current Visit: Yes Status: Acute Code(s): Z78.9 - OTHER SPECIFIED HEALTH STATUS SNOMED Code(s): 436900415
[2019-11-09] MEDS ORDERED: fentaNYL* 50 MCG/ML 2 ML VIAL (100 MCG VIAL) ONE (14:18)
[2019-11-09] MEDS ORDERED: Potassium Chloride* LIQUID 20 MEQ/15 ML UDC PEG TUBE ONE (14:30)
[2019-11-09] MEDS: Pantoprazole IV* 40 MG IV SCH (17:53)
--- NOTE | 2019-11-09 19:48 | BRIEFOPN ---
Brief Operative/Procedure Note - Operation Details Pre-Op Diagnosis: Tube feed aspiration with gastrostomy tube feeds. Post-Op Diagnosis: Same Procedures: Fluoroscopy guided gastrostomy to gastojejunostomy feeding tube conversion. Surgeon(s)/Proceduralists: Ruddy Villarreal M.D. Anesthesia: IV Fentanyl Estimated Blood Loss: 0 Findings: Appropriately positioned gastrostomy tube. Slow motility of contrast injected into the stomach and duodenom. Specimen(s)/Culture(s) Description: Uncomplicated exchange to 18 U[place], 30 cm length STEVE gastrojejunostomy feeding tube. Complications: 0
[2019-11-10] MEDS: NS 0.9% 1000 ML** 1,000 ML IV SCH ×2 (01:17→16:18)
[2019-11-10] MEDS: Clindamycin 600 MG/NS BAG(*) 600 MG/50 ML BAG IV SCH ×3 (05:54→22:15)
[2019-11-10] MEDS: Levothyroxine TAB* 100 MCG TAB PO SCH (05:55)
[2019-11-10] MEDS: Levothyroxine TAB* 25 MCG TAB PO SCH (05:55)
[2019-11-10] MEDS: Oseltamivir SUSP* ORALSYR 6 MG/ML SCH ×2 (08:35→20:21)
[2019-11-10] MEDS: Heparin VIAL(*) 5000 UNITS/ML VIAL (FIVE THOUSAND) SUBCUT SCH ×2 (08:35→20:21)
[2019-11-10] MEDS: Losartan TAB* 25 MG PO SCH (12:14)
--- NOTE | 2019-11-10 12:15 | PN ---
Subjective Date of Service: 11/10/19 Interval History: Pt is feeling ok. He states he is not SOB at this time. He still feels like he has been hit by a truck. He coughed up some sputum today and it did not contain any tube feed. He had a BM this AM. Objective Active Medications: Heparin Sodium (Porcine) (Heparin Vial(*)) 5,000 units SUBCUT Q12HR [facility] Last Admin: 11/10/19 08:35 Dose: 5,000 units Sodium Chloride (Ns 0.9% 1000 Ml) 1,000 mls @ 75 mls/hr IV PER RATE [facility] Last Admin: 11/10/19 01:17 Dose: 75 mls/hr Clindamycin HCl (Cleocin 600 Mg/50 Ml(*)) 600 mg in 50 mls @ 100 mls/hr IV Q8H [facility] Last Admin: 11/10/19 05:54 Dose: 100 mls/hr Levothyroxine Sodium (Synthroid Tab*) 200 mcg PO DAILY@0600 [facility] Last Admin: 11/10/19 05:55 Dose: 200 mcg Levothyroxine Sodium (Synthroid Tab*) 25 mcg PO DAILY@0600 [facility] Last Admin: 11/10/19 05:55 Dose: 25 mcg Losartan Potassium (Cozaar Tab*) 100 mg PO DAILY [facility] Ondansetron HCl (Zofran Inj*) 4 mg IV Q6H PRN PRN Reason: NAUSEA Oseltamivir Phosphate (Tamiflu Susp* Oralsyr) 75 mg .SEE ORDER BID [facility] Stop: 11/11/19 09:01 Last Admin: 11/10/19 08:35 Dose: 75 mg Pantoprazole Sodium (Protonix Iv*) 40 mg IV Q24H [facility] Last Admin: 11/09/19 17:53 Dose: 40 mg Vital Signs - 8 hr 11/10/19 08:00 Respiratory 18 Rate Oxygen Devices in Use Now: Nasal Cannula Appearance: Elderly male sitting up in bed, NAD Ears/Nose/Mouth/Throat: Mucous Membranes Moist Respiratory: Symmetrical Chest Expansion and Respiratory Effort, Clear to Auscultation Cardiovascular: NL Sounds; No Murmurs; No JVD, RRR, No Edema Abdominal: NL Sounds; No Tenderness; No Distention - G/J tube in place Extremities: No Clubbing, Cyanosis Skin: No Nodules or Sclerosis Neurological: Alert and Oriented x 3 Result Diagrams: 11/09/19 04:39 11/09/19 04:39 Microbiology and Other Data: Microbiology 11/06/19 11:55 Legionella Urinary Antigen - Final Urine Negative Legionella Antigen Streptococcus pneumoniae Ag Screen - Final Negative S. pneumo Antigen Assess/Plan/Problems-Billing Mr Mendoza is a 69 yo M who has a h/o head/neck cancer s/p XRT/chemo/neck dissection, thyroid cancer, prostate cancer, HTN and hypothyroidism who had a G tube placed by IR on 10/24/19 for chronic dysphagia who developed cough and SOB as well as aspirating tube feed on 11/06/19 and presented to the ER for evaluation. He was found to be positive for influenza and is being ruled out for COVID-19. - Patient Problems (1) Influenza A Current Visit: Yes Status: Acute Code(s): J10.1 - FLU DUE TO OTH IDENT INFLUENZA VIRUS W OTH RESP MANIFEST SNOMED Code(s): 606897725 Comment: Pt has tested positive for influenza A. He will continue on tamiflu for 10 doses. His respiratory status is improved and he is requiring less supplemental O2. COVID-19 PCR pending. (2) Aspiration pneumonitis Current Visit: Yes Status: Resolved Code(s): J69.0 - PNEUMONITIS DUE TO INHALATION OF FOOD AND VOMIT SNOMED Code(s): 341104396 Comment: There is no evidence of pneumonia given normal WBC count and lack of discrete infiltrate on CXR. Continue clindamycin for 7 days total empirically while awaiting full recovery. (3) Hypertension Current Visit: Yes Status: Acute Code(s): I10 - ESSENTIAL (PRIMARY) HYPERTENSION SNOMED Code(s): 99061504 Comment: BP is up today. Losartan starting today. (4) Hypothyroidism Current Visit: Yes Status: Acute Code(s): E03.9 - HYPOTHYROIDISM, UNSPECIFIED SNOMED Code(s): 62630914 Comment: Continue levothyroxine 225mcg per PEG. (5) DVT prophylaxis Current Visit: Yes Status: Acute Code(s): Z29.9 - ENCOUNTER FOR PROPHYLACTIC MEASURES, UNSPECIFIED SNOMED Code(s): 720283887 Comment: SQ heparin (6) Full code status Current Visit: Yes Status: Acute Code(s): Z78.9 - OTHER SPECIFIED HEALTH STATUS SNOMED Code(s): 767389027
[2019-11-10] MEDS: Pantoprazole IV* 40 MG IV SCH (16:18)
[2019-11-11] MEDS: Clindamycin 600 MG/NS BAG(*) 600 MG/50 ML BAG IV SCH ×3 (05:40→21:35)
[2019-11-11] MEDS: Levothyroxine TAB* 100 MCG TAB PO SCH (05:42)
[2019-11-11] MEDS: Levothyroxine TAB* 25 MCG TAB PO SCH (05:42)
[2019-11-11] MEDS: Heparin VIAL(*) 5000 UNITS/ML VIAL (FIVE THOUSAND) SUBCUT SCH ×2 (08:56→21:35)
[2019-11-11] MEDS: Losartan TAB* 25 MG PO SCH (08:56)
[2019-11-11] MEDS: Oseltamivir SUSP* ORALSYR 6 MG/ML SCH ×2 (08:57→21:35)
--- NOTE | 2019-11-11 09:08 | PN ---
Subjective Date of Service: 11/11/19 Interval History: Pt is feeling lousy. He continues to feel wiped out. He has been coughing some but has not coughed up any tube feed. He does however describe a chalky taste in his mouth that he thinks may be tube feed taste. Objective Active Medications: Heparin Sodium (Porcine) (Heparin Vial(*)) 5,000 units SUBCUT Q12HR [facility] Last Admin: 11/11/19 08:56 Dose: 5,000 units Sodium Chloride (Ns 0.9% 1000 Ml) 1,000 mls @ 75 mls/hr IV PER RATE [facility] Last Admin: 11/10/19 16:18 Dose: 75 mls/hr Clindamycin HCl (Cleocin 600 Mg/50 Ml(*)) 600 mg in 50 mls @ 100 mls/hr IV Q8H [facility] Last Admin: 11/11/19 05:40 Dose: 100 mls/hr Levothyroxine Sodium (Synthroid Tab*) 200 mcg PO DAILY@0600 [facility] Last Admin: 11/11/19 05:42 Dose: 200 mcg Levothyroxine Sodium (Synthroid Tab*) 25 mcg PO DAILY@0600 [facility] Last Admin: 11/11/19 05:42 Dose: 25 mcg Losartan Potassium (Cozaar Tab*) 100 mg PO DAILY [facility] Last Admin: 11/11/19 08:56 Dose: 100 mg Ondansetron HCl (Zofran Inj*) 4 mg IV Q6H PRN PRN Reason: NAUSEA Pantoprazole Sodium (Protonix Iv*) 40 mg IV Q24H [facility] Last Admin: 11/10/19 16:18 Dose: 40 mg Vital Signs - 8 hr 11/11/19 11/11/19 03:15 07:40 Temperature 97.4 F 98.4 F Pulse Rate 58 60 Respiratory 20 20 Rate Blood Pressure 159/84 156/83 (mmHg) O2 Sat by Pulse 97 96 Oximetry Oxygen Devices in Use Now: Nasal Cannula Appearance: Elderly male sitting up in bed, NAD Eyes: No Scleral Icterus Ears/Nose/Mouth/Throat: - - dry tongue Respiratory: Symmetrical Chest Expansion and Respiratory Effort, Clear to Auscultation Cardiovascular: NL Sounds; No Murmurs; No JVD, RRR, No Edema Abdominal: NL Sounds; No Tenderness; No Distention Extremities: No Clubbing, Cyanosis Skin: No Nodules or Sclerosis Neurological: Alert and Oriented x 3 Result Diagrams: 11/09/19 04:39 11/09/19 04:39 Microbiology and Other Data: Microbiology 11/06/19 11:55 Legionella Urinary Antigen - Final Urine Negative Legionella Antigen Streptococcus pneumoniae Ag Screen - Final Negative S. pneumo Antigen Assess/Plan/Problems-Billing Mr Mendoza is a 69 yo M who has a h/o head/neck cancer s/p XRT/chemo/neck dissection, thyroid cancer, prostate cancer, HTN and hypothyroidism who had a G tube placed by IR on 10/24/19 for chronic dysphagia who developed cough and SOB as well as aspirating tube feed on 11/06/19 and presented to the ER for evaluation. He was found to be positive for influenza and is being ruled out for COVID-19. - Patient Problems (1) Influenza A Current Visit: Yes Status: Acute Code(s): J10.1 - FLU DUE TO OTH IDENT INFLUENZA VIRUS W OTH RESP MANIFEST SNOMED Code(s): 903555901 Comment: Pt has tested positive for influenza A. He will continue on tamiflu for 10 doses. His respiratory status is improved and he is requiring less supplemental O2. COVID-19 PCR cancelled per ID. Pt's was reportedly tested and negative. (2) Aspiration pneumonitis Current Visit: Yes Status: Resolved Code(s): J69.0 - PNEUMONITIS DUE TO INHALATION OF FOOD AND VOMIT SNOMED Code(s): 039508751 Comment: There is no evidence of pneumonia given normal WBC count and lack of discrete infiltrate on CXR. Today is D#6 of 7 of Abx treatement. (3) Hypertension Current Visit: Yes Status: Acute Code(s): I10 - ESSENTIAL (PRIMARY) HYPERTENSION SNOMED Code(s): 58513687 Comment: BP is mildly up today but will continue losartan. (4) Hypothyroidism Current Visit: Yes Status: Acute Code(s): E03.9 - HYPOTHYROIDISM, UNSPECIFIED SNOMED Code(s): 26665302 Comment: Continue levothyroxine 225mcg per PEG. (5) DVT prophylaxis Current Visit: Yes Status: Acute Code(s): Z29.9 - ENCOUNTER FOR PROPHYLACTIC MEASURES, UNSPECIFIED SNOMED Code(s): 191293814 Comment: SQ heparin (6) Full code status Current Visit: Yes Status: Acute Code(s): Z78.9 - OTHER SPECIFIED HEALTH STATUS SNOMED Code(s): 269639554
[2019-11-11] MEDS: NS 0.9% 1000 ML** 1,000 ML IV SCH ×2 (09:09→22:16)
[2019-11-11] MEDS: Pantoprazole IV* 40 MG IV SCH (17:52)
[2019-11-12] MEDS: Levothyroxine TAB* 25 MCG TAB PO SCH (06:00)
[2019-11-12] MEDS: Levothyroxine TAB* 100 MCG TAB PO SCH (06:00)
[2019-11-12] MEDS: Clindamycin 600 MG/NS BAG(*) 600 MG/50 ML BAG IV SCH ×2 (06:01→14:44)
[2019-11-12] MEDS: Losartan TAB* 25 MG PO SCH (08:29)
[2019-11-12] MEDS: Heparin VIAL(*) 5000 UNITS/ML VIAL (FIVE THOUSAND) SUBCUT SCH ×2 (08:29→22:05)
[2019-11-12] MEDS: Oseltamivir SUSP* ORALSYR 6 MG/ML SCH ×2 (08:29→22:05)
--- NOTE | 2019-11-12 14:15 | PN ---
Subjective Date of Service: 11/12/19 Interval History: Pt is still feeling wiped out. He is still coughing up yellow sputum. No SOB. He has had 2 soft BMs today. Objective Active Medications: Heparin Sodium (Porcine) (Heparin Vial(*)) 5,000 units SUBCUT Q12HR [facility] Last Admin: 11/12/19 08:29 Dose: 5,000 units Sodium Chloride (Ns 0.9% 1000 Ml) 1,000 mls @ 75 mls/hr IV PER RATE [facility] Last Admin: 11/11/19 22:16 Dose: 75 mls/hr Clindamycin HCl (Cleocin 600 Mg/50 Ml(*)) 600 mg in 50 mls @ 100 mls/hr IV Q8H [facility] Last Admin: 11/12/19 06:01 Dose: 100 mls/hr Levothyroxine Sodium (Synthroid Tab*) 200 mcg PO DAILY@0600 [facility] Last Admin: 11/12/19 06:00 Dose: 200 mcg Levothyroxine Sodium (Synthroid Tab*) 25 mcg PO DAILY@0600 [facility] Last Admin: 11/12/19 06:00 Dose: 25 mcg Losartan Potassium (Cozaar Tab*) 100 mg PO DAILY [facility] Last Admin: 11/12/19 08:29 Dose: 100 mg Ondansetron HCl (Zofran Inj*) 4 mg IV Q6H PRN PRN Reason: NAUSEA Oseltamivir Phosphate (Tamiflu Susp* Oralsyr) 75 mg .SEE ORDER BID [facility] Stop: 11/12/19 21:01 Last Admin: 11/12/19 08:29 Dose: 75 mg Pantoprazole Sodium (Protonix Iv*) 40 mg IV Q24H [facility] Last Admin: 11/11/19 17:52 Dose: 40 mg Vital Signs - 8 hr 11/12/19 11/12/19 08:00 08:24 Temperature 98.2 F Pulse Rate 54 Respiratory 18 18 Rate Blood Pressure 168/82 (mmHg) O2 Sat by Pulse 95 Oximetry Oxygen Devices in Use Now: None Appearance: Elderly male sitting up in bed, NAD Eyes: No Scleral Icterus Ears/Nose/Mouth/Throat: Mucous Membranes Moist Respiratory: Symmetrical Chest Expansion and Respiratory Effort, Clear to Auscultation Cardiovascular: NL Sounds; No Murmurs; No JVD, RRR, No Edema Abdominal: NL Sounds; No Tenderness; No Distention Extremities: No Clubbing, Cyanosis Skin: No Nodules or Sclerosis Neurological: Alert and Oriented x 3 Result Diagrams: 11/09/19 04:39 11/09/19 04:39 Microbiology and Other Data: Microbiology 11/06/19 11:55 Legionella Urinary Antigen - Final Urine Negative Legionella Antigen Streptococcus pneumoniae Ag Screen - Final Negative S. pneumo Antigen Assess/Plan/Problems-Billing Mr Mendoza is a 69 yo M who has a h/o head/neck cancer s/p XRT/chemo/neck dissection, thyroid cancer, prostate cancer, HTN and hypothyroidism who had a G tube placed by IR on 10/24/19 for chronic dysphagia who developed cough and SOB as well as aspirating tube feed on 11/06/19 and presented to the ER for evaluation. He was found to be positive for influenza and is being ruled out for COVID-19. - Patient Problems (1) Influenza A Current Visit: Yes Status: Acute Code(s): J10.1 - FLU DUE TO OTH IDENT INFLUENZA VIRUS W OTH RESP MANIFEST SNOMED Code(s): 355149137 Comment: Pt has tested positive for influenza A. He will continue on tamiflu for 10 doses- done tonight. His respiratory status is improved and he is requiring no supplemental O2. COVID-19 PCR cancelled per ID. (2) Aspiration pneumonitis Current Visit: Yes Status: Resolved Code(s): J69.0 - PNEUMONITIS DUE TO INHALATION OF FOOD AND VOMIT SNOMED Code(s): 559257089 Comment: There is no evidence of pneumonia given normal WBC count and lack of discrete infiltrate on CXR. Today is D#7 of 7 of Abx treatement for history of aspiration. (3) Hypertension Current Visit: Yes Status: Acute Code(s): I10 - ESSENTIAL (PRIMARY) HYPERTENSION SNOMED Code(s): 06492946 Comment: BP has been higher than earlier this admission. If BP remains elevated tomorrow, add amlodipine. (4) Hypothyroidism Current Visit: Yes Status: Acute Code(s): E03.9 - HYPOTHYROIDISM, UNSPECIFIED SNOMED Code(s): 99123224 Comment: Continue levothyroxine 225mcg per PEG. (5) DVT prophylaxis Current Visit: Yes Status: Acute Code(s): Z29.9 - ENCOUNTER FOR PROPHYLACTIC MEASURES, UNSPECIFIED SNOMED Code(s): 757537059 Comment: SQ heparin (6) Full code status Current Visit: Yes Status: Acute Code(s): Z78.9 - OTHER SPECIFIED HEALTH STATUS SNOMED Code(s): 666578950
[2019-11-12] MEDS: Pantoprazole IV* 40 MG IV SCH (15:36)
[2019-11-13] MEDS: Levothyroxine TAB* 100 MCG TAB PO SCH (05:51)
[2019-11-13] MEDS: Levothyroxine TAB* 25 MCG TAB PO SCH (05:51)
--- NOTE | 2019-11-13 07:25 | PN ---
Subjective Date of Service: 11/13/19 Interval History: HD8 on 11/12 69M PMH SCC hypothyroid, HTN, HLD, prostate Ca, tongue/neck s/p radical dissection/chemo/radiation in 2006 c/b late esophageal strictures and dysphagia with recent PEG tube placement on 10/24/19 c/b ileus and ongoing aspiration, who presented with cough found to be aspirating and Flu A +. S/P G to J conversion on 11/08 Overnight no acute events, VSS Tolerating nightly feeds without aspiration Labs: Stable on 11/08, none since. This morning, a bit depressed about the state of things but generally no complaints, no further aspiration, tolerating feeds, normal BM, no abd pain, feels flu sx are improving. Eager to be d/c but awaiting pump to be delivered to home. Objective Active Medications: Heparin Sodium (Porcine) (Heparin Vial(*)) 5,000 units SUBCUT Q12HR [facility] Last Admin: 11/12/19 22:05 Dose: 5,000 units Lansoprazole (Lansoprazole Susp* Oralsyr) 30 mg G TUBE DAILY [facility] Levothyroxine Sodium (Synthroid Tab*) 200 mcg PO DAILY@0600 [facility] Last Admin: 11/13/19 05:51 Dose: 200 mcg Levothyroxine Sodium (Synthroid Tab*) 25 mcg PO DAILY@0600 [facility] Last Admin: 11/13/19 05:51 Dose: 25 mcg Losartan Potassium (Cozaar Tab*) 100 mg PO DAILY [facility] Last Admin: 11/12/19 08:29 Dose: 100 mg Ondansetron HCl (Zofran Inj*) 4 mg IV Q6H PRN PRN Reason: NAUSEA Vital Signs - 8 hr 11/13/19 02:37 Temperature 97.9 F Pulse Rate 51 Respiratory 19 Rate Blood Pressure 143/69 (mmHg) O2 Sat by Pulse 95 Oximetry Oxygen Devices in Use Now: None Appearance: Pleasant man in NAD, endorses depression Eyes: No Scleral Icterus, PERRLA Ears/Nose/Mouth/Throat: NL Teeth, Lips, Gums, Clear Oropharnyx, - - Dry MM Neck: NL Appearance and Movements; NL JVP Respiratory: Symmetrical Chest Expansion and Respiratory Effort, Clear to Auscultation Cardiovascular: NL Sounds; No Murmurs; No JVD, RRR Abdominal: NL Sounds; No Tenderness; No Distention, No Hepatosplenomegaly, - - Well healed tube Lymphatic: No Cervical Adenopathy Extremities: No Edema Skin: No Rash or Ulcers Neurological: Alert and Oriented x 3 Result Diagrams: 11/09/19 04:39 11/09/19 04:39 Microbiology and Other Data: Microbiology 11/06/19 11:55 Legionella Urinary Antigen - Final Urine Negative Legionella Antigen Streptococcus pneumoniae Ag Screen - Final Negative S. pneumo Antigen Assess/Plan/Problems-Billing 69M PMH SCC hypothyroid, HTN, HLD, prostate Ca, tongue/neck s/p radical dissection/chemo/radiation in 2006 c/b late esophageal strictures and dysphagia with recent PEG tube placement on 10/24/19 c/b ileus and ongoing aspiration, who presented with cough found to be aspirating and Flu A +. S/P G to J conversion on 11/08 - Patient Problems (1) Influenza A Current Visit: Yes Status: Acute Code(s): J10.1 - FLU DUE TO OTH IDENT INFLUENZA VIRUS W OTH RESP MANIFEST SNOMED Code(s): 272780054 Comment: -Completed 10 doses of Ostletamavir 11/11 PM -Sx improving -COVID d/c when flu positive appropriately. (2) Hypertension Current Visit: Yes Status: Acute Code(s): I10 - ESSENTIAL (PRIMARY) HYPERTENSION SNOMED Code(s): 20384789 Comment: -BP has been higher than earlier this admission. -Add low dose amlodipine 5mg daily starting 11/13 (3) Hypothyroidism Current Visit: Yes Status: Acute Code(s): E03.9 - HYPOTHYROIDISM, UNSPECIFIED SNOMED Code(s): 01362066 Comment: -Continue levothyroxine 225mcg per PEG. (4) Failure to thrive Current Visit: No Status: Acute Code(s): FHO5671 - SNOMED Code(s): 24435332 Comment: - At this time no clear indication for TPN/PPN (5) H/O tongue cancer Current Visit: No Status: Acute Comment: - With above complications, no active cancer (6) PEG tube malfunction Current Visit: No Status: Acute Code(s): K94.23 - GASTROSTOMY MALFUNCTION SNOMED Code(s): 530183191 Comment: -Initially seemed to be a post operative ileus, though contnued aspiration prompted to convert to J tube on 11/08 -Modified barium, possible esophagram non diagnostic for esophageal path last hospilizatoin (7) Prostate cancer Current Visit: No Status: Acute Code(s): C61 - MALIGNANT NEOPLASM OF PROSTATE SNOMED Code(s): 838888771 Comment: - surveillance - continue outpatient follow up (8) DVT prophylaxis Current Visit: Yes Status: Acute Code(s): Z29.9 - ENCOUNTER FOR PROPHYLACTIC MEASURES, UNSPECIFIED SNOMED Code(s): 704822840 Comment: -SQ heparin (9) Full code status Current Visit: Yes Status: Acute Code(s): Z78.9 - OTHER SPECIFIED HEALTH STATUS SNOMED Code(s): 801036619 Status and Disposition: -PT OT Not Needed -Diet: at goal nightly feeds 140cc hr from 8 to 8 with 100cc water flushes -Dispo: To home 11/13
[2019-11-13] MEDS: Lansoprazole SUSP* ORALSYR 3 MG/ML G TUBE SCH (09:10)
[2019-11-13] MEDS: Heparin VIAL(*) 5000 UNITS/ML VIAL (FIVE THOUSAND) SUBCUT SCH ×2 (09:10→20:34)
[2019-11-13] MEDS: Losartan TAB* 25 MG PO SCH (09:10)
--- NOTE | 2019-11-13 16:51 | DS ---
DATE OF ADMISSION: 11/06/2019. DATE OF ANTICIPATED DISCHARGE: 11/14/2019. DISPOSITION AT THE TIME OF DISCHARGE: Stable to be discharged to home. PRIMARY DIAGNOSIS: Influenza A, aspiration secondary to coughing, recent PEG tube with G to J conversion done on November 08. SECONDARY DIAGNOSES: 1. Past medical history of squamous cell carcinoma of head and neck, status post radical dissection, chemo and radiation in 2006. 2. Esophageal radiation complicated by late esophageal strictures and dysphagia necessitating PEG tube placement on 10/24/2019, initially complicated by ileus. 3. Hypothyroidism. 4. Hypertension. 5. Hyperlipidemia. 6. Prostate cancer. MEDICATIONS AT THE TIME OF DISCHARGE: 1. Lansoprazole 30 mg suspension per G tube daily. 2. Aspirin 81 mg per G tube daily. 3. Amlodipine 5 mg per G tube daily. 4. Levothyroxine 225 mcg per PEG tube daily. 5. Losartan 100 mg per PEG tube daily. 6. Multivitamin one tab per PEG tube daily. MEDICATION CHANGES ON THIS HOSPITALIZATION: 1. Addition of Lansoprazole under the direction of Interventional Radiology for healing of gastric track, at least for one month status post discharge. 2. Reinstitution of aspirin and starting back of Amlodipine 5 mg p.o. daily. 3. Other home medications were unchanged. Of note, the patient did complete a full course of Tamiflu during his hospitalization. HISTORY OF PRESENT ILLNESS/HOSPITAL COURSE: This is a 69-year-old male with the above past medical history who had been recently discharged from the hospital on 10/26/2019 after PEG tube placement with complication of ileus who re-presented with cough, fever, and aspiration of tube feeds during a coughing episode. The patient was found to have influenza A in the emergency room and because of his ongoing aspirations while coughing, he was admitted to the hospital to discuss G to J tube conversion which had been a plan if he was unable to tolerate bolus feeds in the outpatient setting. HOSPITAL COURSE BY PROBLEM: 1. Influenza A: The patient took Tamiflu. His symptoms resolved and completed his course. His also tested positive for influenza A; during this hospitalization, she was prescribed Tamiflu. He is not needing oxygen and his coughing had improved significantly by the day of discharge. 2. Aspiration of bolus tube feeds, status post recent G tube placement on 10/23: The patient underwent G to J conversion with Interventional Radiology on 11/09/2019 and tolerated it well. With J tube, all tube feeds must be nightly and done continuous. He was kept in the hospital until his continual pump could be delivered to his home. His goal tube feeding is 140 cc per hour from 8:00 p.m. to 8:00 a.m. with 100 cc of water flushes given q.4 hours. He has tolerated his continuous tube feeds at goal for several days with no further episodes of aspiration. He is moving his bowels regularly on the day of discharge. 3. Hypertension: The patient has labile blood pressure which is most likely secondary to radiation and some autonomic dysfunction. He was on Losartan alone , but his blood pressure continued to rise during the latter half of his hospital course and thus Amlodipine was restarted on the day of discharge. He is currently going to be discharged on Losartan 100 and Amlodipine 5 and can follow-up with Dr. Aly for blood pressure management as an outpatient as needed, although historically he has had labile blood pressure. 4. Hyperlipidemia: Statin and aspirin are continued. 5. Prostate cancer: He is under surveillance. 6. GERD/GI prophylaxis: IR recommended patient to be placed on a PPI for 30 days status post G to J conversion and Lansoprazole liquid was prescribed. This can be continued at the discretion of outpatient provider, although could be trialed off after one month if the patient has no symptoms of GERD. On the day of discharge, the patient is tolerating goal tube feeds. He is eager to be discharged to home. He is somewhat depressed over the state of not being able to eat, although this will be a long ongoing conversation, but is otherwise voiding, ambulating, tolerating diet, and stable to be discharged with no supplemental oxygen with stable vital signs. LABORATORY DATA: His last dated labs were on 11/09/2019: White blood cell count of 3, hemoglobin of 12.8, hematocrit of 38, platelets of 145; sodium 135, potassium 3.4, chloride 99, carbon dioxide 31, anion gap 5, BUN 17, creatinine 0.87, glucose 83, AST and ALT at 31 and 17 respectively with alk phos 41; influenza A was positive on this hospitalization. IMAGING STUDIES: 1. Chest x-ray on 11/08/2019 showed persistent left pleural effusion with improved aeration of the right lung base, small left pleural effusion noted. 2. Chest/thorax CTA done on 11/06/2019 showed peribronchial thickening and mucus plugging, but no pulmonary embolus. 3. Abdominal x-ray on 11/06/2019 showed a PEG tube that appeared in place. CONSULTANTS DURING THIS HOSPITALIZATION: Interventional Radiology who completed the following procedure: Gastrostomy tube exchange from G to J done on 11/09/[address] Ruddy Villarreal. ITEMS FOLLOW-UP STATUS POST DISCHARGE: 1. G to J conversion: Assure that the patient is able to tolerate his goal of 140 cc from 8:00 p.m. to 8:00 a.m. nightly with 100 cc of water flushes q.6 hours. The patient has been able to tolerate while here in the hospital and his is educated by our nurses as well as V[facility] nurses who are electronics specialist to them 14/03 and will be delivering the pump on 11/14/2019. 2. Hypertension: The patient has labile blood pressure. Was on Losartan alone and historically been on Losartan and Amlodipine. His Amlodipine was added back. 3. Influenza A: Ensure complete resolution of symptoms. The patient has clear lungs on auscultation on the day of discharge as well as no need for supplemental oxygen. He has completed a course of Tamiflu as of 11/12/2019. TIME SPENT: Forty-five minutes were spent on the planning of this discharge with over half of that spent directly at the bedside of the patient providing direct patient care. Plan of care was discussed with the patient and his family. They have no further questions. If there are any questions about the care of this patient during this hospitalization, please do not hesitate to reach out and contact me directly, my cellphone is [phone]. [id number]/[facility] #: [id number] AMIE
[2019-11-14] MEDS: Levothyroxine TAB* 100 MCG TAB PO SCH (06:08)
[2019-11-14] MEDS: Levothyroxine TAB* 25 MCG TAB PO SCH (06:08)
[2019-11-14] MEDS ORDERED: Aspirin 81 mg CHEW TAB* 81 MG TAB.CHEW G TUBE SCH (09:00)
[2019-11-14] MEDS ORDERED: amLODIPine TAB* 5 MG PO SCH (09:00)
[2019-11-14] MEDS: Losartan TAB* 25 MG PO SCH (09:29)
[2019-11-14] MEDS: Lansoprazole SUSP* ORALSYR 3 MG/ML G TUBE SCH (09:30)
[2019-11-14] MEDS: Heparin VIAL(*) 5000 UNITS/ML VIAL (FIVE THOUSAND) SUBCUT SCH (09:30)
[2019-11-14 09:48] VITALS: BP 144/69
--- NOTE | 2019-11-14 12:31 | PN ---
Subjective Date of Service: 11/14/19 Interval History: Pt is seen just priror to discharge. doing well. Tolerating tube feeds nightly without any problems Objective Vital Signs - 8 hr 11/14/19 11/14/19 07:15 08:00 Temperature 98.3 F Pulse Rate 57 Respiratory 16 16 Rate Blood Pressure 144/69 (mmHg) O2 Sat by Pulse 93 Oximetry Oxygen Devices in Use Now: None Appearance: 69 yo M in NAD, AAOx3 Eyes: No Scleral Icterus, PERRLA Ears/Nose/Mouth/Throat: NL Teeth, Lips, Gums, Mucous Membranes Moist Neck: NL Appearance and Movements; NL JVP Respiratory: Symmetrical Chest Expansion and Respiratory Effort, Clear to Auscultation Cardiovascular: NL Sounds; No Murmurs; No JVD, RRR Abdominal: NL Sounds; No Tenderness; No Distention, - - J tube in place, abd soft, NT, BS+ Lymphatic: No Cervical Adenopathy Extremities: No Edema, No Clubbing, Cyanosis Skin: No Rash or Ulcers, No Nodules or Sclerosis Neurological: Alert and Oriented x 3, NL Muscle Strength and Tone Result Diagrams: 11/09/19 04:39 11/09/19 04:39 Microbiology and Other Data: Microbiology 11/06/19 11:55 Legionella Urinary Antigen - Final Urine Negative Legionella Antigen Streptococcus pneumoniae Ag Screen - Final Negative S. pneumo Antigen Assess/Plan/Problems-Billing 69M PMH SCC hypothyroid, HTN, HLD, prostate Ca, tongue/neck s/p radical dissection/chemo/radiation in 2006 c/b late esophageal strictures and dysphagia with recent PEG tube placement on 10/24/19 c/b ileus and ongoing aspiration, who presented with cough found to be aspirating and Flu A +. S/P G to J conversion on 11/08 Status and Disposition: -PT OT Not Needed -Diet: at goal nightly feeds 140cc hr from 8 to 8 with 100cc water flushes -Dispo: discharged today, please see d/c summary for details
== END 2019-11-14 11:55 | disposition home health service (06) | DRG 178 ==
LOC: ED 10:47 → MEDTELE 14:06 → MED 17:29 → ICU 11-07 22:06 → MED 11-08 14:38
PROVIDERS: ADMIT Internal Medicine; ATTEND Internal Medicine
PROC: 0DHA3UZ Insertion of Feeding Device into Jejunum, Percutaneous Approach (ICD-10-PCS; principal; 2019-11-09)
DX: J69.0 Pneumonitis due to inhalation of food and vomit (principal); J90 Pleural effusion, not elsewhere classified; K56.7 Ileus, unspecified; J10.1 Influenza due to other identified influenza virus with other respiratory manifestations; E78.5 Hyperlipidemia, unspecified; I15.8 Other secondary hypertension; E89.0 Postprocedural hypothyroidism; C61 Malignant neoplasm of prostate; R62.7 Adult failure to thrive; K21.9 Gastro-esophageal reflux disease without esophagitis; I10 Essential (primary) hypertension; R13.10 Dysphagia, unspecified; K31.84 Gastroparesis; R09.02 Hypoxemia; Z87.891 Personal history of nicotine dependence; Z92.21 Personal history of antineoplastic chemotherapy; Z92.3 Personal history of irradiation; Z88.8 Allergy status to other drugs, medicaments and biological substances; Z88.0 Allergy status to penicillin; Z85.89 Personal history of malignant neoplasm of other organs and systems; Z85.850 Personal history of malignant neoplasm of thyroid; Z85.810 Personal history of malignant neoplasm of tongue; Z72.89 Other problems related to lifestyle; Z68.20 Body mass index [BMI] 20.0-20.9, adult; Z93.1 Gastrostomy status
CPT/HCPCS: 36415; 49452; 71045; 71275; 74018; 80048; 80053; 81003; 81015; 83605; 83735; 83880; 85025; 86140; 87040; 87086; 87899; 93005; 94640; 96365; 99284; A9270-GY; C1769; C1887; J0692; J1644; J1650; J3010; Q9967; U0002

== ENCOUNTER 2020-02-24 00:06 | Observation (INO) ==
[2020-02-24 00:48] LABS: ABS Lymphocytes 0.5 10^3/ul (1.0-4.8); ABS Monocytes 0.2 10^3/ul (0-0.8); Eosinophil % 0.3 %; Hematocrit 40 % (42-52); Hemoglobin 14.4 g/dL (14.0-18.0); Mean Corpuscular HGB Conc 36 g/dL (31-36); Mean Corpuscular Hemoglobin 33 pg (27-31); Mean Corpuscular Volume 93 fL (80-94); Mean Platelet Volume 11.1 fL (7.4-10.4); Nucleated Red Blood Cells % 0.1; Platelet Count 153 10^3/uL (150-450); Red Blood Count 4.37 10^6 /uL (4.18-5.48); Red Cell Distribution Width 14 % (10-15); White Blood Count 5.4 10^3/uL (3.5-10.8)
[2020-02-24 00:57] LABS: INR 1.05 (0.82-1.09)
[2020-02-24] MEDS ORDERED: Ondansetron 4 mg VIAL 2 MG/ML 2 ml VIAL IV ONE ×3 (00:57→03:45)
[2020-02-24 01:05] LABS: Albumin 4.3 g/dL (3.2-5.2); Albumin/Globulin Ratio 1.3 (1-3); BUN/Creatinine Ratio 40.6 (8-20); C Reactive Protein 1.27 mg/L (<8.01); Calcium 9.4 mg/dL (8.6-10.3); EGFR African American 149.2 (>60); EGFR Non-African American 123.3 (>60); Globulin 3.3 g/dL (2-4); Potassium 3.8 mmol/L (3.5-5.0); Total Bilirubin 0.8 mg/dL (0.2-1.0); Total Protein 7.6 g/dL (6.4-8.9)
[2020-02-24 01:08] LABS: Urine Appearance Turbid; Urine Bilirubin Negative (Negative); Urine Blood Negative (Negative); Urine Color Yellow; Urine Glucose Negative (Negative); Urine Ketones Negative (Negative); Urine Nitrite Negative (Negative); Urine Protein 1+(30 mg/dL) (Negative); Urine Specific Gravity 1.016 (1.010-1.030); Urine Urobilinogen Positive (Negative)
[2020-02-24 01:18] LABS: Urine Bacteria Absent (Absent); Urine Red Blood Cell Trace(0-2/hpf) (Absent); Urine White Blood Cell 1+(6-10/hpf) (Absent)
[2020-02-24] MEDS ORDERED: Iohexol 350 (CONTRAST) 500 ML MDV IV ONE (01:47)
[2020-02-24] MEDS ORDERED: fentaNYL 100 mcg/2 ml 50 MCG/ML VIAL IV SLOW PU ONE (02:49)
[2020-02-24] MEDS ORDERED: NS 0.9% 1000 ml BAG 1,000 ML IV ONE (04:46)
[2020-02-24] MEDS ORDERED: Morphine 2 MG/ML SYRINGE IV PRN (06:06)
[2020-02-24] MEDS ORDERED: Albuterol/Ipratropium NEB.SOL (2.5/0.5 MG) 3 ML NEB.SOLN INH PRN (06:09)
[2020-02-24] MEDS ORDERED: Ondansetron 4 mg VIAL 2 MG/ML 2 ml VIAL IV PRN (06:09)
[2020-02-24] MEDS ORDERED: cefTRIAXone 1 gm/50 mL NS BAG 1 GM/50 ML BAG IVPB ONE (06:30)
[2020-02-24] MEDS ORDERED: Senna TAB 8.6 mg TAB PEG TUBE PRN (06:39)
[2020-02-24] MEDS ORDERED: Polyethylene Glycol 3350 17 GM PACKET PEG TUBE PRN (06:39)
[2020-02-24] MEDS ORDERED: cefTRIAXone 1 gm/50 mL NS BAG 1 GM/50 ML BAG IVPB SCH ×2 (07:30→12:00)
[2020-02-24] MEDS ORDERED: Enoxaparin 40 MG/0.4 ML SYR(*) SUBCUT SCH (08:00)
[2020-02-24] MEDS ORDERED: metroNIDAZOLE IV 500 MG/100ML 500 MG/100 ML BAG IVPB SCH (08:00)
[2020-02-24] MEDS: NS 0.9% 1000 ml BAG 1,000 ML IV SCH (12:42)
[2020-02-24] MEDS: metroNIDAZOLE IV 500 MG/100ML 500 MG/100 ML BAG IVPB SCH ×2 (13:38→21:56)
[2020-02-24] MEDS ORDERED: Psyllium PAK J TUBE SCH (16:00)
[2020-02-24] MEDS: Heparin 5000 UNITS/ML VIAL(*) 1 ml vial SUBCUT SCH (21:56)
[2020-02-25] MEDS: NS 0.9% 1000 ml BAG 1,000 ML IV SCH (00:44)
[2020-02-25 04:53] VITALS: BP 137/72
[2020-02-25] MEDS: metroNIDAZOLE IV 500 MG/100ML 500 MG/100 ML BAG IVPB SCH (05:36)
[2020-02-25 07:03] LABS: ABS Eosinophils 0.2 10^3/ul (0-0.6); ABS Monocytes 0.3 10^3/ul (0-0.8); Hematocrit 39 % (42-52); Hemoglobin 13.5 g/dL (14.0-18.0); Lymphocyte % 23.2 %; Mean Corpuscular HGB Conc 35 g/dL (31-36); Mean Corpuscular Hemoglobin 33 pg (27-31); Mean Corpuscular Volume 94 fL (80-94); Mean Platelet Volume 10.5 fL (7.4-10.4); Platelet Count 118 10^3/uL (150-450); Red Blood Count 4.15 10^6 /uL (4.18-5.48); Red Cell Distribution Width 13 % (10-15); White Blood Count 4.1 10^3/uL (3.5-10.8)
[2020-02-25 07:27] LABS: BUN/Creatinine Ratio 31.1 (8-20); Calcium 8.7 mg/dL (8.6-10.3); EGFR African American 157.7 (>60); EGFR Non-African American 130.3 (>60); Magnesium 1.9 mg/dL (1.9-2.7)
[2020-02-25] MEDS: Heparin 5000 UNITS/ML VIAL(*) 1 ml vial SUBCUT SCH (09:50)
== END 2020-02-25 12:00 | disposition home or self-care (01) ==
LOC: ED 00:06 → ICU 06:09 → INTOOBSV 06:09 → MED 08:50
PROVIDERS: ADMIT Hospitalist; ATTEND Internal Medicine

== ENCOUNTER 2020-07-21 09:47 | Inpatient (IN) ==
[2020-07-21] MEDS ORDERED: Ondansetron 4 mg VIAL 2 MG/ML 2 ml VIAL IV ONE (10:22)
[2020-07-21 10:42] LABS: ABS Lymphocytes 0.6 10^3/ul (1.0-4.8); ABS Monocytes 0.3 10^3/ul (0-0.8); ABS Neutrophils 3.5 10^3/ul (1.5-7.7); Eosinophil % 0.1 %; Hematocrit 45 % (42-52); Hemoglobin 15.8 g/dL (14.0-18.0); Lymphocyte % 14.3 %; Mean Corpuscular HGB Conc 35 g/dL (31-36); Mean Corpuscular Hemoglobin 32 pg (27-31); Mean Corpuscular Volume 92 fL (80-94); Mean Platelet Volume 10.3 fL (7.4-10.4); Nucleated Red Blood Cells % 0.2; Platelet Count 166 10^3/uL (150-450); Red Blood Count 4.92 10^6 /uL (4.18-5.48); Red Cell Distribution Width 13 % (10-15); White Blood Count 4.5 10^3/uL (3.5-10.8)
[2020-07-21 10:58] LABS: Albumin 4.9 g/dL (3.2-5.2); Albumin/Globulin Ratio 1.4 (1-3); BUN/Creatinine Ratio 31.6 (8-20); Calcium 10.6 mg/dL (8.6-10.3); EGFR Non-African American 96.7 (>60); Globulin 3.5 g/dL (2-4); Potassium 4.4 mmol/L (3.5-5.0); Total Bilirubin 1.2 mg/dL (0.2-1.0); Total Protein 8.4 g/dL (6.4-8.9)
[2020-07-21] MEDS ORDERED: Iohexol 300 (CONTRAST) 10 ML SDV IV ONE (11:05)
[2020-07-21] MEDS ORDERED: Ondansetron 4 mg VIAL 2 MG/ML 2 ml VIAL IV PRN (12:49)
[2020-07-21] MEDS ORDERED: Enoxaparin 40 MG/0.4 ML SYR SUBCUT SCH (15:00)
[2020-07-21] MEDS ORDERED: Midazolam 10 mg/10 ml VIAL 1 mg/ml 10 ml VIAL (10 mg) ONE (20:08)
[2020-07-21] MEDS ORDERED: fentaNYL 100 mcg/2 ml 50 MCG/ML VIAL ONE (20:08)
[2020-07-21] MEDS: Enoxaparin 40 MG/0.4 ML SYR SUBCUT SCH (22:43)
[2020-07-21] MEDS: Lactated Ringers 1000 ml BAG 1,000 ML IV SCH (22:43)
[2020-07-22 05:26] LABS: ABS Basophils 0.1 10^3/ul (0-0.2); ABS Eosinophils 0.1 10^3/ul (0-0.6); ABS Lymphocytes 0.9 10^3/ul (1.0-4.8); ABS Monocytes 0.4 10^3/ul (0-0.8); ABS Neutrophils 2.8 10^3/ul (1.5-7.7); Eosinophil % 3.1 %; Hematocrit 40 % (42-52); Hemoglobin 13.4 g/dL (14.0-18.0); Lymphocyte % 21.5 %; Mean Corpuscular HGB Conc 34 g/dL (31-36); Mean Corpuscular Hemoglobin 32 pg (27-31); Mean Corpuscular Volume 93 fL (80-94); Mean Platelet Volume 10.6 fL (7.4-10.4); Nucleated Red Blood Cells % 0.1; Platelet Count 136 10^3/uL (150-450); Red Blood Count 4.25 10^6 /uL (4.18-5.48); Red Cell Distribution Width 13 % (10-15); White Blood Count 4.2 10^3/uL (3.5-10.8)
[2020-07-22 05:32] LABS: INR 1.13 (0.82-1.09)
[2020-07-22 05:43] LABS: BUN/Creatinine Ratio 27.5 (8-20); Calcium 9.5 mg/dL (8.6-10.3); EGFR African American 136.8 (>60); Potassium 4.1 mmol/L (3.5-5.0)
[2020-07-22] MEDS: Levothyroxine 100 MCG/5 ML VIAL IV SCH (10:26)
[2020-07-22] MEDS: Lactated Ringers 1000 ml BAG 1,000 ML IV SCH ×2 (14:48→23:06)
[2020-07-22] MEDS ORDERED: Iohexol 300 (CONTRAST) 10 ML SDV IV ONE (15:18)
[2020-07-22] MEDS ORDERED: PEG 3000 GI LAVAGE 1 GALLON PO ONE (18:00)
[2020-07-22] MEDS: Enoxaparin 40 MG/0.4 ML SYR SUBCUT SCH (21:05)
[2020-07-23] MEDS: Levothyroxine 100 MCG/5 ML VIAL IV SCH (05:18)
[2020-07-23 05:39] LABS: ABS Basophils 0.1 10^3/ul (0-0.2); ABS Eosinophils 0.1 10^3/ul (0-0.6); ABS Monocytes 0.3 10^3/ul (0-0.8); ABS Neutrophils 2.3 10^3/ul (1.5-7.7); Eosinophil % 3.7 %; Hematocrit 40 % (42-52); Hemoglobin 13.9 g/dL (14.0-18.0); Mean Corpuscular HGB Conc 34 g/dL (31-36); Mean Corpuscular Hemoglobin 32 pg (27-31); Mean Corpuscular Volume 92 fL (80-94); Mean Platelet Volume 10.3 fL (7.4-10.4); Nucleated Red Blood Cells % 0.1; Platelet Count 131 10^3/uL (150-450); Red Cell Distribution Width 13 % (10-15); White Blood Count 3.8 10^3/uL (3.5-10.8)
[2020-07-23 05:56] LABS: Albumin/Globulin Ratio 1.4 (1-3); BUN/Creatinine Ratio 18.8 (8-20); Calcium 9.5 mg/dL (8.6-10.3); EGFR African American 136.8 (>60); Globulin 2.8 g/dL (2-4); Magnesium 1.9 mg/dL (1.9-2.7); Potassium 3.8 mmol/L (3.5-5.0); Total Protein 6.8 g/dL (6.4-8.9)
[2020-07-23] MEDS: Lactated Ringers 1000 ml BAG 1,000 ML IV SCH ×2 (07:21→15:21)
[2020-07-23] MEDS ORDERED: Labetalol IV 5 MG/ML 20 ml VIAL IV PUSH PRN (14:00)
[2020-07-23] MEDS: Psyllium PAK PO SCH (18:22)
[2020-07-23] MEDS: Enoxaparin 40 MG/0.4 ML SYR SUBCUT SCH (22:15)
[2020-07-23] MEDS: Polyethylene Glycol 3350 17 GM PACKET PO SCH (22:15)
[2020-07-24] MEDS: Levothyroxine 100 MCG/5 ML VIAL IV SCH (06:19)
[2020-07-24] MEDS: Psyllium PAK PO SCH (06:19)
[2020-07-24] MEDS: Polyethylene Glycol 3350 17 GM PACKET PO SCH (09:02)
[2020-07-24 11:01] VITALS: BP 151/74
== END 2020-07-24 12:50 | disposition home or self-care (01) ==
LOC: ED 09:47 → SSU 12:49
PROVIDERS: ADMIT Pediatrics; ATTEND Surgery

== ENCOUNTER 2020-10-28 09:47 | Inpatient (IN) ==
[2020-10-28] MEDS ORDERED: Morphine 4 MG/ML VIAL (1 ml) IV ONE (10:21)
[2020-10-28] MEDS ORDERED: NS 0.9% 1000 ml BAG 1,000 ML IV ONE ×2 (10:21→14:24)
[2020-10-28] MEDS ORDERED: Ondansetron 4 mg VIAL 2 MG/ML 2 ml VIAL IV ONE (10:21)
[2020-10-28 10:25] LABS: ABS Basophils 0.1 10^3/ul (0-0.2); ABS Eosinophils 0.1 10^3/ul (0-0.6); ABS Lymphocytes 1.7 10^3/ul (1.0-4.8); ABS Monocytes 0.4 10^3/ul (0-0.8); ABS Neutrophils 7.5 10^3/ul (1.5-7.7); Eosinophil % 1.2 %; Hematocrit 46 % (42-52); Hemoglobin 15.5 g/dL (14.0-18.0); Lymphocyte % 16.9 %; Mean Corpuscular HGB Conc 33 g/dL (31-36); Mean Corpuscular Hemoglobin 31 pg (27-31); Mean Corpuscular Volume 93 fL (80-94); Mean Platelet Volume 10.9 fL (7.4-10.4); Platelet Count 212 10^3/uL (150-450); Red Blood Count 4.95 10^6 /uL (4.18-5.48); Red Cell Distribution Width 14 % (10-15); White Blood Count 9.7 10^3/uL (3.5-10.8)
[2020-10-28] MEDS ORDERED: fentaNYL 100 mcg/2 ml 50 MCG/ML VIAL IV SLOW PU ONE (10:43)
[2020-10-28 10:44] LABS: Albumin 4.6 g/dL (3.2-5.2); Albumin/Globulin Ratio 1.4 (1-3); BUN/Creatinine Ratio 40.2 (8-20); C Reactive Protein 1.92 mg/L (<8.01); Calcium 9.9 mg/dL (8.6-10.3); EGFR African American 104.4 (>60); EGFR Non-African American 86.3 (>60); Globulin 3.4 g/dL (2-4); Magnesium 2.3 mg/dL (1.9-2.7); Total Bilirubin 0.7 mg/dL (0.2-1.0)
[2020-10-28] MEDS ORDERED: Iohexol 300 (CONTRAST) 10 ML SDV IV ONE (11:04)
[2020-10-28] MEDS ORDERED: HYDROmorphone 0.5 MG/0.5 ML SYRINGE IV ONE ×2 (11:11→13:39)
[2020-10-28] MEDS ORDERED: Prochlorperazine 5 mg/ml 2 ml VIAL (10 mg) ONE (11:53)
[2020-10-28] MEDS ORDERED: Prochlorperazine 5 mg/ml 2 ml VIAL (10 mg) IV ONE (11:53)
[2020-10-28] MEDS ORDERED: Piperacillin/Tazobac ADVAN 3.375 GM in NS 0.9% 100 ml BAG 100 ML IVPB ONE (13:45)
[2020-10-28] MEDS: NS 0.9% 1000 ml BAG 1,000 ML IV ONE ×2 (14:03→14:13)
[2020-10-28] MEDS ORDERED: Metoclopramide 5 MG/ML VIAL (10 mg) IV ONE (14:36)
[2020-10-28] MEDS ORDERED: Zosyn per Pharmacy NOTE FOLLOW UP SCH (15:00)
[2020-10-28] MEDS: Lactated Ringers 1000 ml BAG 1,000 ML IV SCH ×2 (15:06→23:13)
[2020-10-28] MEDS ORDERED: Norepinephrine 16MCG/ML IVPRE 4,000 MCG/250 ML BAG IV SCH (16:00)
[2020-10-28] MEDS: Norepinephrine 16MCG/ML IVPRE 4,000 MCG/250 ML BAG IV SCH ×3 (16:36→23:29)
[2020-10-28 17:17] LABS: ABS Lymphocytes 0.9 10^3/ul (1.0-4.8); ABS Monocytes 0.9 10^3/ul (0-0.8); ABS Neutrophils 14.6 10^3/ul (1.5-7.7); Hematocrit 52 % (42-52); Hemoglobin 16.7 g/dL (14.0-18.0); Lymphocyte % 5.3 %; Mean Corpuscular HGB Conc 32 g/dL (31-36); Mean Corpuscular Hemoglobin 31 pg (27-31); Mean Corpuscular Volume 97 fL (80-94); Mean Platelet Volume 11.4 fL (7.4-10.4); Nucleated Red Blood Cells % 0.2; Platelet Count 248 10^3/uL (150-450); Red Blood Count 5.38 10^6 /uL (4.18-5.48); Red Cell Distribution Width 15 % (10-15); White Blood Count 16.4 10^3/uL (3.5-10.8)
[2020-10-28 17:34] LABS: CO2 Carbon Dioxide 20 mmol/L (22-32); Calcium 8.4 mg/dL (8.6-10.3); Chloride 108 mmol/L (101-111); Sodium 137 mmol/L (135-145)
[2020-10-28 17:40] LABS: BUN/Creatinine Ratio 31.7 (8-20); Blood Urea Nitrogen 38 mg/dL (6-24); EGFR Non-African American 59.5 (>60); Glucose 228 mg/dL (70-100)
[2020-10-28 17:44] LABS: Anion Gap 9 mmol/L (2-11)
[2020-10-28] MEDS ORDERED: Sodium Bicarbonate 8.4% SYR 50 ml SYRINGE ONE ×2 (18:06→18:34)
[2020-10-28] MEDS: ZOSYN 3.375 GM Q8H per EXTENDED INFUSION IV SCH (18:08)
[2020-10-28] MEDS ORDERED: Propofol 10 MG/ML 20 ML BTL ONE (18:17)
[2020-10-28] MEDS ORDERED: fentaNYL 100 mcg/2 ml 50 MCG/ML VIAL ONE (18:17)
[2020-10-28] MEDS ORDERED: Midazolam 2 mg/2 ml VIAL 1 mg/ml 2 ml VIAL (2 mg) ONE (18:17)
[2020-10-28] MEDS ORDERED: Rocuronium 50 mg VIAL 10 mg/ml 5 ml VIAL (50 mg) ONE ×2 (18:19→21:02)
[2020-10-28] MEDS ORDERED: Benzocaine/Butamben/Tetracain (CETACAINE - SINGLE USE) 5 gm TOPICAL ONE (18:31)
[2020-10-28] MEDS ORDERED: Bupivacaine 0.25% EPI 200,000 30 ML SDV ONE (18:51)
[2020-10-28] MEDS ORDERED: Lidocaine 2% PF 5 ML VIAL ONE (18:52)
[2020-10-28] MEDS ORDERED: Lidocaine 2% w/ EPI 1:200,000 MPF 20 ML SDV VIAL ONE (18:56)
[2020-10-28] MEDS ORDERED: Sodium Bicarb 8.4% Vial 50 ML 100 MEQ in D5W 1000 ml BAG 1,000 ML IV SCH (19:00)
[2020-10-28] MEDS ORDERED: Sodium Bicarbonate 8.4% SYR 50 ml SYRINGE IV ONE (19:09)
[2020-10-28] MEDS ORDERED: Sodium Bicarbonate 8.4% VIAL 1 MEQ/ML 50 ml VIAL (50 meq) ONE ×2 (19:11→20:32)
[2020-10-28] MEDS ORDERED: Phenylephrine IV 10 MG/ML 1 ml VIAL ONE (19:41)
[2020-10-28] MEDS ORDERED: Phenylephrine 40 mcg/mL 10mL (400mcg) SYRINGE ONE (19:58)
[2020-10-28] MEDS ORDERED: Norepinephrine IV 1 MG/ML 4 ML VIAL ONE (20:20)
[2020-10-28] MEDS ORDERED: Morphine 10 MG/ML VIAL (1 ml) ONE (20:23)
[2020-10-28] MEDS ORDERED: Lactated Ringers 1000 ml BAG 1,000 ML IV ONE (21:56)
[2020-10-28] MEDS: Phenylephrine IV 50 MG in NS 0.9% 250 ml 245 ML IV SCH (22:00)
[2020-10-28] MEDS ORDERED: Vasopressin 100 UNITS in D5W 250 ml BAG 245 ML IV SCH (22:00)
[2020-10-28] MEDS: Midazolam 50 MG VIAL IV DRIP 50 ML IV SCH (22:13)
[2020-10-28] MEDS: fentaNYL INFUSION 50 MCG/ML 2,500 MCG/50 ML BAG IV SCH (22:13)
[2020-10-28 22:26] LABS: ABS Lymphocytes 0.7 10^3/ul (1.0-4.8); ABS Neutrophils 16.5 10^3/ul (1.5-7.7); Hematocrit 42 % (42-52); Hemoglobin 13.3 g/dL (14.0-18.0); Lymphocyte % 3.7 %; Mean Corpuscular HGB Conc 32 g/dL (31-36); Mean Corpuscular Hemoglobin 31 pg (27-31); Mean Corpuscular Volume 96 fL (80-94); Platelet Count 199 10^3/uL (150-450); Red Blood Count 4.34 10^6 /uL (4.18-5.48); Red Cell Distribution Width 14 % (10-15); White Blood Count 18.2 10^3/uL (3.5-10.8)
[2020-10-28 22:36] LABS: Activated Partial Thrombo Time 31.6 seconds (26.0-38.0); BUN/Creatinine Ratio 27.5 (8-20); Calcium 7.5 mg/dL (8.6-10.3); EGFR African American 65.1 (>60); EGFR Non-African American 53.8 (>60); INR 1.26 (0.82-1.09); Magnesium 1.9 mg/dL (1.9-2.7); Phosphorus 7.3 mg/dL (2.5-5.0); Potassium 4.1 mmol/L (3.5-5.0)
[2020-10-28 22:37] LABS: Troponin I 0.01 ng/mL (<0.03)
[2020-10-28] MEDS ORDERED: Magnesium Sulfate IV 1GM/100ML 1 GM/100 ML BAG IV ONE (22:37)
[2020-10-29 00:18] LABS: BUN/Creatinine Ratio 31.3 (8-20); Calcium 7.5 mg/dL (8.6-10.3); EGFR African American 75.6 (>60); EGFR Non-African American 62.5 (>60); Potassium 3.7 mmol/L (3.5-5.0)
[2020-10-29] MEDS: Chlorhexidine MOUTHWASH 0.12% 15 ML UDC SWISH SPIT SCH ×4 (00:43→21:58)
[2020-10-29] MEDS: Pantoprazole VIAL 40 MG VIAL IV SCH ×2 (00:43→08:31)
[2020-10-29] MEDS: KCL 20 MEQ/100 ML IVPREMIX 20 MEQ/100 ML BAG IV SCH ×2 (00:49→03:08)
[2020-10-29] MEDS: Norepinephrine 16MCG/ML IVPRE 4,000 MCG/250 ML BAG IV SCH ×3 (00:58→04:00)
[2020-10-29] MEDS: ZOSYN 3.375 GM Q8H per EXTENDED INFUSION IV SCH ×3 (02:38→18:20)
[2020-10-29] MEDS ORDERED: Norepinephrine *QUAD STRENGTH* 16 mg/250 mL NS per protocol IV SCH (05:00)
[2020-10-29] MEDS: Phenylephrine IV 50 MG in NS 0.9% 250 ml 245 ML IV SCH (05:07)
[2020-10-29 05:25] LABS: Albumin 2.6 g/dL (3.2-5.2); Albumin/Globulin Ratio 1.2 (1-3); BUN/Creatinine Ratio 34.7 (8-20); Calcium 7.5 mg/dL (8.6-10.3); EGFR African American 73.4 (>60); EGFR Non-African American 60.7 (>60); Globulin 2.2 g/dL (2-4); Magnesium 1.8 mg/dL (1.9-2.7); Phosphorus 3.3 mg/dL (2.5-5.0); Potassium 5.1 mmol/L (3.5-5.0); Total Bilirubin 0.7 mg/dL (0.2-1.0); Total Protein 4.8 g/dL (6.4-8.9)
[2020-10-29] MEDS ORDERED: Magnesium Sulfate 2 gm BAG 2 GM/50 ML BAG IVPB ONE (05:29)
[2020-10-29 06:57] LABS: Hematocrit 42 % (42-52); Hemoglobin 13.8 g/dL (14.0-18.0); Mean Corpuscular HGB Conc 33 g/dL (31-36); Mean Corpuscular Hemoglobin 31 pg (27-31); Mean Corpuscular Volume 95 fL (80-94); Mean Platelet Volume 11.3 fL (7.4-10.4); Platelet Count 195 10^3/uL (150-450); Red Blood Count 4.44 10^6 /uL (4.18-5.48); Red Cell Distribution Width 14 % (10-15); White Blood Count 13.2 10^3/uL (3.5-10.8)
[2020-10-29 07:43] LABS: ABS Monocytes 0.8 10^3/ul (0-0.8); ABS Neutrophils 11.4 10^3/ul (1.5-7.7); Lymphocyte % 7.5 %
[2020-10-29] MEDS: Lactated Ringers 1000 ml BAG 1,000 ML IV SCH ×3 (08:30→19:28)
[2020-10-29] MEDS ORDERED: Phenylephrine IV 50 MG in NS 0.9% 250 ml 245 ML IV SCH (08:52)
[2020-10-29] MEDS: Norepinephrine IV 16 MG in NS 0.9% 250 ml 234 ML IV SCH ×2 (11:43→19:28)
[2020-10-29 11:54] LABS: BUN/Creatinine Ratio 39.6 (8-20); Calcium 7.6 mg/dL (8.6-10.3); EGFR African American 78.8 (>60); EGFR Non-African American 65.1 (>60)
[2020-10-29 12:57] LABS: Hematocrit 39 % (42-52); Hemoglobin 12.9 g/dL (14.0-18.0)
[2020-10-29] MEDS: Midazolam 50 MG VIAL IV DRIP 50 ML IV SCH (14:59)
[2020-10-29] MEDS ORDERED: Rocuronium 50 mg VIAL 10 mg/ml 5 ml VIAL (50 mg) ONE ×2 (15:18→15:53)
[2020-10-29] MEDS ORDERED: Calcium CHLORIDE 10% SYRINGE 1 GM/10 ML ONE (15:49)
[2020-10-29] MEDS ORDERED: Midazolam 2 mg/2 ml VIAL 1 mg/ml 2 ml VIAL (2 mg) ONE (15:54)
[2020-10-29] MEDS ORDERED: EPINEPHrine SYR 0.1MG/ML 10 ml SYRINGE ONE (16:18)
[2020-10-29 20:02] LABS: Hematocrit 37 % (42-52); Hemoglobin 12.5 g/dL (14.0-18.0); Mean Corpuscular HGB Conc 34 g/dL (31-36); Mean Corpuscular Hemoglobin 32 pg (27-31); Mean Corpuscular Volume 93 fL (80-94); Mean Platelet Volume 10.5 fL (7.4-10.4); Platelet Count 123 10^3/uL (150-450); Red Blood Count 3.92 10^6 /uL (4.18-5.48); Red Cell Distribution Width 14 % (10-15); White Blood Count 7.9 10^3/uL (3.5-10.8)
[2020-10-29 20:22] LABS: Albumin 2.5 g/dL (3.2-5.2); Albumin/Globulin Ratio 1.4 (1-3); BUN/Creatinine Ratio 42.6 (8-20); Calcium 7.7 mg/dL (8.6-10.3); EGFR African American 95.5 (>60); EGFR Non-African American 78.9 (>60); Globulin 1.8 g/dL (2-4); Phosphorus 3.2 mg/dL (2.5-5.0); Potassium 4.8 mmol/L (3.5-5.0); Total Protein 4.3 g/dL (6.4-8.9)
[2020-10-29 20:43] LABS: ABS Lymphocytes 0.8 10^3/ul (1.0-4.8); ABS Monocytes 0.8 10^3/ul (0-0.8); ABS Neutrophils 6.2 10^3/ul (1.5-7.7); Eosinophil % 0.2 %
[2020-10-29] MEDS: fentaNYL INFUSION 50 MCG/ML 2,500 MCG/50 ML BAG IV SCH (21:46)
[2020-10-29] MEDS ORDERED: Lactated Ringers 500 ml BAG 500 ML IV ONE (22:33)
[2020-10-29] MEDS: fentaNYL 100 mcg/2 ml 50 MCG/ML VIAL IV SLOW PU PRN (23:46)
[2020-10-30] MEDS: Lactated Ringers 1000 ml BAG 1,000 ML IV SCH ×5 (01:41→17:00)
[2020-10-30] MEDS: ZOSYN 3.375 GM Q8H per EXTENDED INFUSION IV SCH ×3 (02:01→17:48)
[2020-10-30] MEDS: NOREPINEPHRINE IV SCH ×3 (03:40→12:41)
[2020-10-30] MEDS: SODIUM CHLORIDE 0.9% IV SCH ×3 (03:40→12:41)
[2020-10-30 04:39] LABS: Hematocrit 33 % (42-52); Hemoglobin 11.1 g/dL (14.0-18.0); Mean Corpuscular HGB Conc 34 g/dL (31-36); Mean Corpuscular Hemoglobin 31 pg (27-31); Mean Corpuscular Volume 93 fL (80-94); Platelet Count 109 10^3/uL (150-450); Red Blood Count 3.54 10^6 /uL (4.18-5.48); Red Cell Distribution Width 14 % (10-15); White Blood Count 6.3 10^3/uL (3.5-10.8)
[2020-10-30 04:57] LABS: Calcium 7.5 mg/dL (8.6-10.3); EGFR African American 110.2 (>60); EGFR Non-African American 91.1 (>60); Magnesium 1.9 mg/dL (1.9-2.7); Phosphorus 2.3 mg/dL (2.5-5.0); Potassium 4.3 mmol/L (3.5-5.0)
[2020-10-30 07:24] LABS: ABS Lymphocytes 0.8 10^3/ul (1.0-4.8); ABS Monocytes 0.7 10^3/ul (0-0.8); ABS Neutrophils 4.8 10^3/ul (1.5-7.7); Eosinophil % 0.5 %; Lymphocyte % 12.8 %
[2020-10-30] MEDS: Chlorhexidine MOUTHWASH 0.12% 15 ML UDC SWISH SPIT SCH ×3 (09:29→21:52)
[2020-10-30] MEDS: Pantoprazole VIAL 40 MG VIAL IV SCH (09:30)
[2020-10-30] MEDS ORDERED: Perflutren Lipid Microsphere 3 ML VIAL ONE (14:23)
[2020-10-30] MEDS: fentaNYL INFUSION 50 MCG/ML 2,500 MCG/50 ML BAG IV SCH (15:15)
[2020-10-30] MEDS: Midazolam 50 MG VIAL IV DRIP 50 ML IV SCH (18:53)
[2020-10-30] MEDS: Saline FLUSH-CENTRAL 10 ML SYRINGE CENT\\PICC SCH (19:39)
[2020-10-30] MEDS ORDERED: D5LR 1000 ml BAG 1,000 ML IV SCH (20:00)
[2020-10-31] MEDS: ZOSYN 3.375 GM Q8H per EXTENDED INFUSION IV SCH ×3 (02:20→17:16)
[2020-10-31 04:17] LABS: Hematocrit 29 % (42-52); Hemoglobin 9.8 g/dL (14.0-18.0); Mean Corpuscular HGB Conc 34 g/dL (31-36); Mean Corpuscular Hemoglobin 31 pg (27-31); Mean Corpuscular Volume 92 fL (80-94); Red Blood Count 3.13 10^6 /uL (4.18-5.48); Red Cell Distribution Width 14 % (10-15); White Blood Count 3.1 10^3/uL (3.5-10.8)
[2020-10-31 04:33] LABS: BUN/Creatinine Ratio 43.1 (8-20); Calcium 7.5 mg/dL (8.6-10.3); EGFR African American 129.8 (>60); EGFR Non-African American 107.3 (>60); Magnesium 1.8 mg/dL (1.9-2.7); Phosphorus 1.6 mg/dL (2.5-5.0); Potassium 3.7 mmol/L (3.5-5.0)
[2020-10-31 04:38] LABS: ABS Lymphocytes 0.5 10^3/ul (1.0-4.8); ABS Monocytes 0.2 10^3/ul (0-0.8); ABS Neutrophils 2.3 10^3/ul (1.5-7.7); Eosinophil % 0.6 %; Lymphocyte % 17.6 %; Mean Platelet Volume 10.5 fL (7.4-10.4); Platelet Count 83 10^3/uL (150-450)
[2020-10-31] MEDS ORDERED: Norepinephrine IV 1 MG/ML 4 ML VIAL ONE (04:42)
[2020-10-31] MEDS ORDERED: Norepinephrine 16MCG/ML IVPREMIX 4,000 MCG/250 ML BAG IV SCH (05:00)
[2020-10-31] MEDS ORDERED: Potassium Phosphate IV 15 MMOLE in NS 0.9% 250 ml 250 ML IVPB ONE (05:00)
[2020-10-31] MEDS ORDERED: Norepinephrine 16MCG/ML IVPRE 4,000 MCG/250 ML BAG IV SCH (05:00)
[2020-10-31] MEDS: D5LR 1000 ml BAG 1,000 ML IV SCH ×2 (05:04→19:59)
[2020-10-31] MEDS ORDERED: Magnesium Sulfate 2 gm BAG 2 GM/50 ML BAG IVPB ONE (06:58)
[2020-10-31] MEDS: fentaNYL INFUSION 50 MCG/ML 2,500 MCG/50 ML BAG IV SCH (08:15)
[2020-10-31] MEDS: Chlorhexidine MOUTHWASH 0.12% 15 ML UDC SWISH SPIT SCH (08:35)
[2020-10-31] MEDS: Saline FLUSH-CENTRAL 10 ML SYRINGE CENT\\PICC SCH ×2 (08:35→19:14)
[2020-10-31] MEDS: Pantoprazole VIAL 40 MG VIAL IV SCH (08:35)
[2020-10-31] MEDS ORDERED: Chlorhexidine MOUTHWASH 0.12% 15 ML UDC SWISH SPIT SCH (10:00)
[2020-10-31] MEDS: Chlorhexidine MOUTHWASH 0.12% 15 ML UDC TOPICAL SCH ×3 (12:41→19:58)
[2020-10-31] MEDS: Norepinephrine 16MCG/ML IVPRE 4,000 MCG/250 ML BAG IV SCH ×2 (12:41→19:58)
[2020-10-31] MEDS ORDERED: Rocuronium 50 mg VIAL 10 mg/ml 5 ml VIAL (50 mg) ONE ×3 (13:32→15:01)
[2020-10-31] MEDS ORDERED: Propofol 10 MG/ML 20 ML BTL ONE (13:32)
[2020-10-31] MEDS ORDERED: fentaNYL 100 mcg/2 ml 50 MCG/ML VIAL ONE ×2 (14:16→14:39)
[2020-10-31] MEDS ORDERED: Phenylephrine 40 mcg/mL 10mL (400mcg) SYRINGE ONE (14:36)
[2020-10-31] MEDS: fentaNYL 100 mcg/2 ml 50 MCG/ML VIAL IV SLOW PU PRN (16:26)
[2020-10-31] MEDS ORDERED: Furosemide 20 mg/2 ml IV VIAL IV SLOW PU ONE (20:20)
[2020-10-31] MEDS: Midazolam 50 MG VIAL IV DRIP 50 ML IV SCH (23:29)
[2020-11-01] MEDS: Chlorhexidine MOUTHWASH 0.12% 15 ML UDC TOPICAL SCH ×7 (00:15→22:50)
[2020-11-01] MEDS: ZOSYN 3.375 GM Q8H per EXTENDED INFUSION IV SCH ×3 (01:11→17:46)
[2020-11-01] MEDS: Norepinephrine 16MCG/ML IVPRE 4,000 MCG/250 ML BAG IV SCH ×3 (01:20→19:31)
[2020-11-01 04:12] LABS: Hematocrit 30 % (42-52); Hemoglobin 10.2 g/dL (14.0-18.0); Mean Corpuscular HGB Conc 34 g/dL (31-36); Mean Corpuscular Hemoglobin 31 pg (27-31); Mean Corpuscular Volume 93 fL (80-94); Mean Platelet Volume 11.4 fL (7.4-10.4); Platelet Count 105 10^3/uL (150-450); Red Blood Count 3.24 10^6 /uL (4.18-5.48); Red Cell Distribution Width 14 % (10-15); White Blood Count 2.3 10^3/uL (3.5-10.8)
[2020-11-01 04:29] LABS: BUN/Creatinine Ratio 33.3 (8-20); Calcium 7.1 mg/dL (8.6-10.3); EGFR African American 118.4 (>60); EGFR Non-African American 97.8 (>60); Magnesium 1.9 mg/dL (1.9-2.7); Phosphorus 2.7 mg/dL (2.5-5.0); Potassium 3.2 mmol/L (3.5-5.0)
[2020-11-01 04:46] LABS: ABS Lymphocytes 0.4 10^3/ul (1.0-4.8); ABS Monocytes 0.3 10^3/ul (0-0.8); ABS Neutrophils 1.6 10^3/ul (1.5-7.7); Eosinophil % 0.3 %; Lymphocyte % 18.3 %
[2020-11-01 05:00] LABS: Polychromasia 1+
[2020-11-01] MEDS: Levothyroxine 100 MCG/5 ML VIAL IV SCH (05:18)
[2020-11-01] MEDS: KCL 20 MEQ/100 ML IVPREMIX 20 MEQ/100 ML BAG IV SCH ×5 (05:18→20:04)
[2020-11-01] MEDS ORDERED: Magnesium Sulfate IV 1GM/100ML 1 GM/100 ML BAG IV ONE (05:27)
[2020-11-01] MEDS ORDERED: Furosemide 40 mg/4 ml IV VIAL IV SLOW PU ONE (06:40)
[2020-11-01] MEDS: Pantoprazole VIAL 40 MG VIAL IV SCH (07:50)
[2020-11-01] MEDS: Saline FLUSH-CENTRAL 10 ML SYRINGE CENT\\PICC SCH ×2 (07:50→20:06)
[2020-11-01] MEDS ORDERED: Vancomycin per Pharmacy 1 EA NOTE FOLLOW UP SCH (11:00)
[2020-11-01] MEDS ORDERED: Vancomycin 1,250 MG in NS 0.9% 250 ml 250 ML IVPB ONE (11:00)
[2020-11-01] MEDS: Heparin 5000 UNITS/ML 1 mL VIAL SUBCUT SCH ×2 (13:07→22:50)
[2020-11-01 13:36] LABS: Calcium 7.4 mg/dL (8.6-10.3); EGFR African American 104.4 (>60); EGFR Non-African American 86.3 (>60); Potassium 3.4 mmol/L (3.5-5.0)
[2020-11-01 13:37] LABS: Albumin 2.2 g/dL (3.2-5.2); BUN/Creatinine Ratio 32.1 (8-20); Calcium 7.4 mg/dL (8.6-10.3); EGFR African American 108.7 (>60); EGFR Non-African American 89.8 (>60); Globulin 2.3 g/dL (2-4); Magnesium 2.2 mg/dL (1.9-2.7); Phosphorus 2.9 mg/dL (2.5-5.0); Potassium 3.6 mmol/L (3.5-5.0); Total Bilirubin 3.3 mg/dL (0.2-1.0); Total Protein 4.5 g/dL (6.4-8.9)
[2020-11-01 16:44] LABS: Albumin 1.9 g/dL (3.2-5.2); Calcium 6.9 mg/dL (8.6-10.3); Magnesium 2.1 mg/dL (1.9-2.7); Potassium 3.4 mmol/L (3.5-5.0); Total Bilirubin 3.4 mg/dL (0.2-1.0)
[2020-11-01 16:50] LABS: BUN/Creatinine Ratio 33.7 (8-20); EGFR African American 110.2 (>60); EGFR Non-African American 91.1 (>60); Globulin 1.9 g/dL (2-4); Phosphorus 2.8 mg/dL (2.5-5.0); Total Protein 3.8 g/dL (6.4-8.9)
[2020-11-01] MEDS ORDERED: TPN CENTRAL STANDARD BASE A CENTR SCH (17:00)
[2020-11-01] MEDS: Vancomycin 1000 MG in NS 0.9% 250 ML IVPB SCH (23:27)
[2020-11-02] MEDS: ZOSYN 3.375 GM Q8H per EXTENDED INFUSION IV SCH ×2 (03:04→08:05)
[2020-11-02] MEDS: Chlorhexidine MOUTHWASH 0.12% 15 ML UDC TOPICAL SCH ×5 (04:06→20:16)
[2020-11-02] MEDS: Norepinephrine 16MCG/ML IVPRE 4,000 MCG/250 ML BAG IV SCH ×2 (04:07→20:55)
[2020-11-02 05:28] LABS: Hematocrit 32 % (42-52); Hemoglobin 10.6 g/dL (14.0-18.0); Mean Corpuscular HGB Conc 33 g/dL (31-36); Mean Corpuscular Hemoglobin 31 pg (27-31); Mean Corpuscular Volume 92 fL (80-94); Mean Platelet Volume 10.9 fL (7.4-10.4); Platelet Count 110 10^3/uL (150-450); Red Blood Count 3.45 10^6 /uL (4.18-5.48); Red Cell Distribution Width 14 % (10-15)
[2020-11-02 05:45] LABS: BUN/Creatinine Ratio 40.3 (8-20); Calcium 7.3 mg/dL (8.6-10.3); EGFR African American 129.8 (>60); EGFR Non-African American 107.3 (>60); Potassium 3.7 mmol/L (3.5-5.0)
[2020-11-02 05:52] LABS: Polychromasia 1+
[2020-11-02 05:53] LABS: ABS Lymphocytes 0.4 10^3/ul (1.0-4.8); ABS Monocytes 0.5 10^3/ul (0-0.8); ABS Neutrophils 3.1 10^3/ul (1.5-7.7); Eosinophil % 1.1 %; Lymphocyte % 9.6 %; Nucleated Red Blood Cells % 0.1
[2020-11-02] MEDS: Heparin 5000 UNITS/ML 1 mL VIAL SUBCUT SCH ×3 (07:54→20:16)
[2020-11-02] MEDS: Levothyroxine 100 MCG/5 ML VIAL IV SCH (07:55)
[2020-11-02] MEDS: Saline FLUSH-CENTRAL 10 ML SYRINGE CENT\\PICC SCH ×2 (07:55→20:17)
[2020-11-02] MEDS: Midazolam 50 MG VIAL IV DRIP 50 ML IV SCH (08:04)
[2020-11-02] MEDS: Pantoprazole VIAL 40 MG VIAL IV SCH (08:04)
[2020-11-02] MEDS: fentaNYL INFUSION 50 MCG/ML 2,500 MCG/50 ML BAG IV SCH (08:20)
[2020-11-02] MEDS ORDERED: Furosemide 20 mg/2 ml IV VIAL IV ONE (08:25)
[2020-11-02] MEDS ORDERED: Anidulafungin 200 MG in NS 0.9% 250 ml 200 ML IVPB ONE (09:30)
[2020-11-02] MEDS ORDERED: Rocuronium 50 mg VIAL 10 mg/ml 5 ml VIAL (50 mg) IV ONE (09:30)
[2020-11-02] MEDS ORDERED: Rocuronium 50 mg VIAL 10 mg/ml 5 ml VIAL (50 mg) ONE (09:30)
[2020-11-02] MEDS: fentaNYL 100 mcg/2 ml 50 MCG/ML VIAL IV SLOW PU PRN ×3 (09:33→22:12)
[2020-11-02] MEDS: Meropenem 1 GM PREMIX(*) 1 GM/50 ML BAG IV SCH ×2 (10:30→17:28)
[2020-11-02] MEDS: Vancomycin 1000 MG in NS 0.9% 250 ML IVPB SCH (12:02)
[2020-11-02] MEDS ORDERED: Dextrose 50% Syringe 50 ml 25 GM/50 ML SYRINGE IV PUSH PRN (12:13)
[2020-11-02] MEDS ORDERED: TPN CENTRAL STANDARD BASE A CENTR SCH (17:00)
[2020-11-02 21:57] LABS: Calcium 7.2 mg/dL (8.6-10.3); EGFR African American 134.1 (>60); EGFR Non-African American 110.9 (>60); Potassium 3.1 mmol/L (3.5-5.0)
[2020-11-02] MEDS: KCL 20 MEQ/100 ML IVPREMIX 20 MEQ/100 ML BAG IV SCH (23:03)
[2020-11-03] MEDS: Vancomycin 1000 MG in NS 0.9% 250 ML IVPB SCH ×2 (00:34→13:32)
[2020-11-03] MEDS: Chlorhexidine MOUTHWASH 0.12% 15 ML UDC TOPICAL SCH ×6 (00:35→19:45)
[2020-11-03] MEDS: KCL 20 MEQ/100 ML IVPREMIX 20 MEQ/100 ML BAG IV SCH (01:19)
[2020-11-03] MEDS: Meropenem 1 GM PREMIX(*) 1 GM/50 ML BAG IV SCH ×3 (02:25→17:50)
[2020-11-03] MEDS: fentaNYL 100 mcg/2 ml 50 MCG/ML VIAL IV SLOW PU PRN (03:14)
[2020-11-03] MEDS ORDERED: Furosemide 20 mg/2 ml IV VIAL IV SLOW PU ONE (03:17)
[2020-11-03 04:29] LABS: Albumin 1.8 g/dL (3.2-5.2); Albumin/Globulin Ratio 0.9 (1-3); BUN/Creatinine Ratio 47.7 (8-20); Calcium 7.1 mg/dL (8.6-10.3); EGFR African American 146.1 (>60); EGFR Non-African American 120.8 (>60); Globulin 2.1 g/dL (2-4); Phosphorus 1.8 mg/dL (2.5-5.0); Potassium 3.4 mmol/L (3.5-5.0); Total Bilirubin 2.1 mg/dL (0.2-1.0); Total Protein 3.9 g/dL (6.4-8.9)
[2020-11-03 04:55] LABS: Hematocrit 29 % (42-52); Hemoglobin 9.3 g/dL (14.0-18.0); Mean Corpuscular HGB Conc 33 g/dL (31-36); Mean Corpuscular Hemoglobin 31 pg (27-31); Mean Corpuscular Volume 95 fL (80-94); Mean Platelet Volume 10.5 fL (7.4-10.4); Platelet Count 94 10^3/uL (150-450); Red Blood Count 3.01 10^6 /uL (4.18-5.48); Red Cell Distribution Width 14 % (10-15); White Blood Count 3.8 10^3/uL (3.5-10.8)
[2020-11-03] MEDS: Levothyroxine 100 MCG/5 ML VIAL IV SCH (05:26)
[2020-11-03] MEDS: Heparin 5000 UNITS/ML 1 mL VIAL SUBCUT SCH ×2 (05:26→13:30)
[2020-11-03] MEDS: Midazolam 50 MG VIAL IV DRIP 50 ML IV SCH (07:40)
[2020-11-03] MEDS: Pantoprazole VIAL 40 MG VIAL IV SCH (08:01)
[2020-11-03] MEDS: Saline FLUSH-CENTRAL 10 ML SYRINGE CENT\\PICC SCH ×2 (08:02→19:45)
[2020-11-03] MEDS ORDERED: Potassium Chloride LIQUID 20 MEQ/15 ML LIQUID PO ONE (08:15)
[2020-11-03 08:26] LABS: ABS Eosinophils 0.1 10^3/ul (0-0.6); ABS Lymphocytes 0.4 10^3/ul (1.0-4.8); ABS Monocytes 0.4 10^3/ul (0-0.8); Eosinophil % 1.4 %; Lymphocyte % 9.5 %
[2020-11-03] MEDS: Anidulafungin 100 MG in NS 0.9% 100 ml BAG 100 ML IVPB SCH (08:42)
[2020-11-03] MEDS ORDERED: Potassium Phosphate IV 15 MMOLE in NS 0.9% 250 ml 250 ML IVPB ONE (09:00)
[2020-11-03] MEDS: Multivitamins ADULT w/MIN LIQ 15 ML UDC PO SCH (09:18)
[2020-11-03] MEDS ORDERED: Lorazepam PYXIS KEY PRN (09:41)
[2020-11-03] MEDS: LORazepam 2 mg VIAL 1 ml IV PUSH PRN ×3 (10:12→21:38)
[2020-11-03] MEDS: Norepinephrine 16MCG/ML IVPRE 4,000 MCG/250 ML BAG IV SCH (10:27)
[2020-11-03] MEDS ORDERED: Furosemide 40 mg/4 ml IV VIAL ONE (10:30)
[2020-11-03] MEDS: Furosemide 40 mg/4 ml IV VIAL IV SLOW PU ONE ×2 (10:30→12:16)
[2020-11-03] MEDS ORDERED: Norepinephrine 16MCG/ML IVPRE 4,000 MCG/250 ML BAG IV SCH (10:32)
[2020-11-03] MEDS ORDERED: Vancomycin Trough Check NOTE FOLLOW UP ONE (12:00)
[2020-11-03 12:51] LABS: Albumin 2.1 g/dL (3.2-5.2); BUN/Creatinine Ratio 40.6 (8-20); Calcium 7.3 mg/dL (8.6-10.3); EGFR African American 136.4 (>60); EGFR Non-African American 112.7 (>60); Globulin 2.2 g/dL (2-4); Phosphorus 2.6 mg/dL (2.5-5.0); Potassium 4.2 mmol/L (3.5-5.0); Total Bilirubin 1.9 mg/dL (0.2-1.0); Total Protein 4.3 g/dL (6.4-8.9)
[2020-11-03] MEDS ORDERED: Acetylcysteine INHALATION SOL 200 MG/ML NEB.SOLN 10 ML ONE (13:03)
[2020-11-03 13:27] LABS: Vancomycin Trough 10.1 mcg/mL
[2020-11-03] MEDS ORDERED: Acetylcysteine INHALATION SOL 200 MG/ML NEB.SOLN 10 ML INH ONE ×2 (15:32)
[2020-11-03] MEDS: Norepinephrine IV 4 MG in NS 0.9% 250 ml 246 ML IV SCH (18:10)
[2020-11-04] MEDS: Norepinephrine IV 4 MG in NS 0.9% 250 ml 246 ML IV SCH ×2 (00:20→07:07)
[2020-11-04] MEDS: Chlorhexidine MOUTHWASH 0.12% 15 ML UDC TOPICAL SCH ×6 (00:20→21:48)
[2020-11-04] MEDS: Meropenem 1 GM PREMIX(*) 1 GM/50 ML BAG IV SCH ×3 (01:58→17:52)
[2020-11-04] MEDS: LORazepam 2 mg VIAL 1 ml IV PUSH PRN ×2 (02:55→07:53)
[2020-11-04] MEDS: Levothyroxine 100 MCG/5 ML VIAL IV SCH (05:16)
[2020-11-04 05:33] LABS: Hematocrit 30 % (42-52); Mean Corpuscular HGB Conc 34 g/dL (31-36); Mean Corpuscular Hemoglobin 31 pg (27-31); Mean Corpuscular Volume 94 fL (80-94); Mean Platelet Volume 11.4 fL (7.4-10.4); Platelet Count 138 10^3/uL (150-450); Red Blood Count 3.18 10^6 /uL (4.18-5.48); Red Cell Distribution Width 15 % (10-15); White Blood Count 7.1 10^3/uL (3.5-10.8)
[2020-11-04 05:42] LABS: INR 1.09 (0.82-1.09)
[2020-11-04 05:50] LABS: BUN/Creatinine Ratio 41.5 (8-20); Calcium 7.4 mg/dL (8.6-10.3); EGFR African American 146.1 (>60); EGFR Non-African American 120.8 (>60); Magnesium 2.1 mg/dL (1.9-2.7); Phosphorus 2.2 mg/dL (2.5-5.0); Potassium 3.6 mmol/L (3.5-5.0)
[2020-11-04] MEDS ORDERED: NS 0.9% 100 ml BAG 100 ML ONE (07:54)
[2020-11-04] MEDS ORDERED: Potassium Phosphate IV 15 MMOLE in NS 0.9% 250 ml 250 ML IVPB ONE (08:06)
[2020-11-04] MEDS: Multivitamins ADULT w/MIN LIQ 15 ML UDC PO SCH (08:09)
[2020-11-04] MEDS: Pantoprazole VIAL 40 MG VIAL IV SCH (08:09)
[2020-11-04] MEDS: Saline FLUSH-CENTRAL 10 ML SYRINGE CENT\\PICC SCH ×2 (08:12→21:49)
[2020-11-04] MEDS: fentaNYL INFUSION 50 MCG/ML 2,500 MCG/50 ML BAG IV SCH (08:57)
[2020-11-04] MEDS: Anidulafungin 100 MG in NS 0.9% 100 ml BAG 100 ML IVPB SCH (09:49)
[2020-11-04] MEDS: fentaNYL 100 mcg/2 ml 50 MCG/ML VIAL IV SLOW PU PRN (11:43)
[2020-11-04] MEDS ORDERED: Benzocaine/Menthol LOZ MT PRN (14:08)
[2020-11-04] MEDS ORDERED: Rocuronium 50 mg VIAL 10 mg/ml 5 ml VIAL (50 mg) ONE ×2 (14:20→15:23)
[2020-11-04] MEDS ORDERED: Midazolam 5 mg/5 ml VIAL 1 mg/ml 5 ml VIAL (5 mg) ONE (14:22)
[2020-11-04] MEDS ORDERED: fentaNYL 100 mcg/2 ml 50 MCG/ML VIAL ONE (16:32)
[2020-11-04] MEDS: Heparin 5000 UNITS/ML 1 mL VIAL SUBCUT SCH (21:48)
[2020-11-05] MEDS ORDERED: Lorazepam PYXIS KEY PRN (00:14)
[2020-11-05] MEDS ORDERED: Lorazepam PYXIS KEY ONE (00:20)
[2020-11-05] MEDS ORDERED: LORazepam 2 mg VIAL 1 ml ONE (00:20)
[2020-11-05] MEDS: LORazepam 2 mg VIAL 1 ml IV PUSH PRN ×3 (00:35→21:33)
[2020-11-05] MEDS: Chlorhexidine MOUTHWASH 0.12% 15 ML UDC TOPICAL SCH ×6 (00:53→21:38)
[2020-11-05] MEDS: Meropenem 1 GM PREMIX(*) 1 GM/50 ML BAG IV SCH ×3 (04:00→17:16)
[2020-11-05] MEDS: fentaNYL INFUSION 50 MCG/ML 2,500 MCG/50 ML BAG IV SCH ×2 (04:11→16:35)
[2020-11-05 05:38] LABS: Hematocrit 36 % (42-52); Hemoglobin 11.6 g/dL (14.0-18.0); Mean Corpuscular HGB Conc 33 g/dL (31-36); Mean Corpuscular Hemoglobin 30 pg (27-31); Mean Corpuscular Volume 93 fL (80-94); Mean Platelet Volume 11.3 fL (7.4-10.4); Platelet Count 217 10^3/uL (150-450); Red Blood Count 3.83 10^6 /uL (4.18-5.48); Red Cell Distribution Width 14 % (10-15); White Blood Count 6.7 10^3/uL (3.5-10.8)
[2020-11-05 05:55] LABS: BUN/Creatinine Ratio 38.8 (8-20); Calcium 7.8 mg/dL (8.6-10.3); EGFR African American 141.1 (>60); EGFR Non-African American 116.6 (>60); Magnesium 2.3 mg/dL (1.9-2.7); Phosphorus 2.6 mg/dL (2.5-5.0); Potassium 3.7 mmol/L (3.5-5.0)
[2020-11-05] MEDS: Heparin 5000 UNITS/ML 1 mL VIAL SUBCUT SCH ×2 (07:57→22:46)
[2020-11-05] MEDS: Levothyroxine 100 MCG/5 ML VIAL IV SCH (07:57)
[2020-11-05] MEDS: Pantoprazole VIAL 40 MG VIAL IV SCH (07:57)
[2020-11-05] MEDS ORDERED: KCL 20 MEQ/100 ML IVPREMIX 20 MEQ/100 ML BAG IV ONE (08:00)
[2020-11-05] MEDS: Saline FLUSH-CENTRAL 10 ML SYRINGE CENT\\PICC SCH ×2 (08:06→21:39)
[2020-11-05] MEDS: Anidulafungin 100 MG in NS 0.9% 100 ml BAG 100 ML IVPB SCH (08:16)
[2020-11-05] MEDS ORDERED: Furosemide 40 mg/4 ml IV VIAL IV SLOW PU ONE (09:00)
[2020-11-05 09:49] LABS: ABS Eosinophils 0.1 10^3/ul (0-0.6); ABS Monocytes 0.7 10^3/ul (0-0.8); ABS Neutrophils 5.2 10^3/ul (1.5-7.7); Lymphocyte % 14.4 %; Nucleated Red Blood Cells % 0.1
[2020-11-05] MEDS ORDERED: Acetaminophen IV 1 GM/100ML 100 ML IVPB ONE (16:39)
[2020-11-05] MEDS: Norepinephrine IV 4 MG in NS 0.9% 250 ml 246 ML IV SCH (17:28)
[2020-11-05] MEDS ORDERED: fentaNYL INFUSION 50 MCG/ML 2,500 MCG/50 ML BAG IV SCH (18:56)
[2020-11-05] MEDS ORDERED: Dexmedetomidine 1,000 MCG in NS 0.9% 250 ml 240 ML IV SCH (19:00)
[2020-11-06 00:59] LABS: Hematocrit 29 % (42-52); Hemoglobin 9.7 g/dL (14.0-18.0); Mean Corpuscular HGB Conc 33 g/dL (31-36); Mean Corpuscular Hemoglobin 31 pg (27-31); Mean Corpuscular Volume 92 fL (80-94); Mean Platelet Volume 11.6 fL (7.4-10.4); Platelet Count 238 10^3/uL (150-450); Red Blood Count 3.16 10^6 /uL (4.18-5.48); Red Cell Distribution Width 14 % (10-15)
[2020-11-06 01:25] LABS: ABS Eosinophils 0.1 10^3/ul (0-0.6); ABS Lymphocytes 0.8 10^3/ul (1.0-4.8); ABS Monocytes 1.1 10^3/ul (0-0.8); Nucleated Red Blood Cells % 0.1
[2020-11-06] MEDS ORDERED: NS 0.9% 1000 ml BAG 1,000 ML IV SCH (01:45)
[2020-11-06] MEDS: Meropenem 1 GM PREMIX(*) 1 GM/50 ML BAG IV SCH ×2 (02:00→10:30)
[2020-11-06] MEDS: Chlorhexidine MOUTHWASH 0.12% 15 ML UDC TOPICAL SCH ×3 (04:00→07:44)
[2020-11-06] MEDS ORDERED: Pantoprazole VIAL 40 MG VIAL IV SCH (05:00)
[2020-11-06 05:18] LABS: Hematocrit 29 % (42-52); Hemoglobin 9.5 g/dL (14.0-18.0); Mean Corpuscular HGB Conc 33 g/dL (31-36); Mean Corpuscular Hemoglobin 31 pg (27-31); Mean Corpuscular Volume 92 fL (80-94); Platelet Count 222 10^3/uL (150-450); Red Cell Distribution Width 15 % (10-15); White Blood Count 5.8 10^3/uL (3.5-10.8)
[2020-11-06 05:35] LABS: BUN/Creatinine Ratio 52.5 (8-20); Calcium 7.5 mg/dL (8.6-10.3); EGFR African American 157.2 (>60); EGFR Non-African American 129.9 (>60); Magnesium 2.6 mg/dL (1.9-2.7); Phosphorus 3.2 mg/dL (2.5-5.0); Potassium 3.3 mmol/L (3.5-5.0)
[2020-11-06] MEDS ORDERED: fentaNYL 100 mcg/2 ml 50 MCG/ML VIAL IV SLOW PU ONE (07:00)
[2020-11-06 07:19] LABS: Polychromasia 1+
[2020-11-06 07:20] LABS: ABS Eosinophils 0.1 10^3/ul (0-0.6); ABS Lymphocytes 0.7 10^3/ul (1.0-4.8); ABS Monocytes 0.6 10^3/ul (0-0.8); ABS Neutrophils 4.4 10^3/ul (1.5-7.7); Eosinophil % 1.8 %; Lymphocyte % 12.2 %
[2020-11-06] MEDS: Levothyroxine 100 MCG/5 ML VIAL IV SCH (07:44)
[2020-11-06] MEDS: Saline FLUSH-CENTRAL 10 ML SYRINGE CENT\\PICC SCH ×2 (07:44→20:27)
[2020-11-06] MEDS: KCL 20 MEQ/100 ML IVPREMIX 20 MEQ/100 ML BAG IV SCH ×2 (07:44→10:30)
[2020-11-06] MEDS: Anidulafungin 100 MG in NS 0.9% 100 ml BAG 100 ML IVPB SCH (07:45)
[2020-11-06] MEDS ORDERED: NS 0.9% 250 ml 250 ML IV ONE (08:27)
[2020-11-06 08:45] LABS: Activated Partial Thrombo Time 26.4 seconds (26.0-38.0); INR 1.06 (0.82-1.09)
[2020-11-06] MEDS ORDERED: Furosemide 20 mg/2 ml IV VIAL IV ONE (13:33)
[2020-11-06] MEDS ORDERED: Furosemide 20 mg/2 ml IV VIAL ONE (13:35)
[2020-11-06] MEDS ORDERED: HYDROmorphone 0.5 MG/0.5 ML SYRINGE IV ONE (16:09)
[2020-11-06] MEDS: LORazepam 2 mg VIAL 1 ml IV PUSH PRN ×2 (17:11→22:54)
[2020-11-06 23:09] VITALS: BP 76/42
[2020-11-06] MEDS ORDERED: Rocuronium 50 mg VIAL 10 mg/ml 5 ml VIAL (50 mg) ONE (23:19)
[2020-11-07] MEDS: LORazepam 2 mg VIAL 1 ml IV PUSH PRN ×2 (04:07→08:57)
[2020-11-07] MEDS: Saline FLUSH-CENTRAL 10 ML SYRINGE CENT\\PICC SCH (07:57)
[2020-11-07] MEDS ORDERED: Meropenem 1 GM PREMIX(*) 1 GM/50 ML BAG IV SCH (09:00)
== END 2020-11-07 13:30 | disposition expired | DRG 329 ==
LOC: ED 09:47 → ICU 14:49
PROVIDERS: ADMIT Internal Medicine; ATTEND Internal Medicine